=== PATIENT | female | born 1935 | race African-American/Black ===

== ENCOUNTER → 2016-11-12 | Outpatient (CLI) | payer MEDICARE | LOC: RAD 12:46 | PROVIDERS: ATTEND Internal Medicine Gastroenterology | DX: R10.84 Generalized abdominal pain (principal); K82.8 Other specified diseases of gallbladder | CPT/HCPCS: 78227; A9537; Q9969; J2805 ==

== ENCOUNTER → 2017-06-03 | Outpatient (CLI) | payer MEDICARE ==
--- NOTE | 2017-06-03 12:43 | RADIOLOGY REPORT (SQ) ---
EXAM DESCRIPTION: CT ABDOMEN WITH IV ORAL CONT COMPLETED DATE/TIME: 06/03/2017 11:53 am REASON FOR STUDY: ABD PAIN (R10.9) R10.9 UNSPECIFIED ABDOMINAL PAIN COMPARISON: None. TECHNIQUE: CT scan of the abdomen performed with intravenous and with oral contrast using helical sc anning technique with dynamic intravenous contrast injection. Images reviewed with lung, soft tissue, and bone windows. Reconstructed coronal and sagittal MPR images reviewed. Delayed images for evaluat ion of the urinary system also acquired and evaluated. All images stored on PACS. All CT scanners at this facility use dose modulation, iterative reconstruc tion, and/or weight based dosing when appropriate to reduce radiation dose to as low as reasonably ac hievable (ALARA). [facility]: Dose Right [facility]: CareDose [facility]: Dose Right [facility]: Teradose 4D [facility]: OOTU CONTRAST TYPE AND DOSE: contrast/concentration: Isovue 370.00 mg/ml; Total Contrast Delivered: 79.0 ml; Total Saline Delivered: 68.0 ml RENAL FUNCTION: Creatinine 1.0 RADIATION DOSE: CT Rad equipment meets quality standard of care and radiation dose reduction techniq ues were employed. CTDIvol: 11.7 - 13.0 mGy. DLP: 814 mGy-cm. . LIMITATIONS: None. FINDINGS: LOWER CHEST: No significant findings. No nodules or infiltrates. LIVER: Normal size. No masses. No dilated ducts. SPLEEN: Normal size. No focal lesions. PANCREAS: There is a 3 cm thin walled unilocular cystic lesion associated with the head of the pancre as. Is best seen on image 26 of the axial series. GALLBLADDER: No identified stones by CT criteria. No inflammatory changes to suggest cholecystitis. ADRENAL GLANDS: There is mild thickening of the left adrenal gland. RIGHT KIDNEY AND URETER: No solid masses. No significant calcifications. No hydronephrosis or hyd roureter. LEFT KIDNEY AND URETER: No solid masses. No significant calcifications. No hydronephrosis or hydr oureter. AORTA AND VESSELS: No aneurysm. No dissection. Renal arteries, SMA, celiac without stenosis. RETROPERITONEUM: No retroperitoneal adenopathy, hemorrhage or masses. BOWEL AND PERITONEAL CAVITY: No masses or inflammatory changes. No free fluid or peritoneal masses. APPENDIX: Normal. ABDOMINAL WALL: No masses. No hernias. BONES: No significant or acute findings. OTHER: No other significant finding. IMPRESSION: 1. Unilocular cystic lesion in the head of the pancreas. If there is history of pancre atitis, pseudocyst is most likely diagnosis. In the absence of history of pancreatitis, entities suc h as intraductal papillary mucinous neoplasms and serous cystadenomas should be considered. 2. There is thickening of the left adrenal gland. TECHNICAL DOCUMENTATION: JOB ID: [id number] Quality ID # [id number]: Final reports with documentation of one or more dose reduction techniques (e.g., Au tomated exposure control, adjustment of the mA and/or kV according to patient size, use of iterative reconstruction technique) 2010 [employer]- All Rights Reserved
== END ==
LOC: RAD 11:11
PROVIDERS: ATTEND Surgery
DX: R10.9 Unspecified abdominal pain (principal); K86.2 Cyst of pancreas
CPT/HCPCS: 74160; 82565

== ENCOUNTER 2017-11-22 09:51 | Emergency (ER) | payer MEDICARE ==
[2017-11-22] MEDS ORDERED: IBUPROFEN 600 MG TABLET PO ONE (10:42)
--- NOTE | 2017-11-22 10:43 | ER Document Report ---
ED Medical Screen (RME) - General Chief Complaint: Fall Injury Stated Complaint: FALL HAND PAIN Time Seen by Provider: 11/22/17 10:32 Mode of Arrival: Ambulatory Information source: Patient Notes: 82-year-old female presents with complaints of mechanical fall a few days prior to complaining of left hand pain facial injury I have greeted and performed a rapid initial assessment of this patient. A comprehensive ED assessment and evaluation of the patient, analysis of test results and completion of the medical decision making process will be conducted by additional ED providers. PHYSICAL EXAMINATION: GENERAL: Well-appearing, well-nourished and in no acute distress. HEAD: Atraumatic, normocephalic. EYES: Pupils equal round extraocular movements intact, conjunctiva are normal. ENT: Nares patent NECK: Normal range of motion LUNGS: No respiratory distress Musculoskeletal: Left hand edematous NEUROLOGICAL: Normal speech, normal gait. PSYCH: Normal mood, normal affect. SKIN: Minor abrasions to nose TRAVEL OUTSIDE OF THE [place] IN LAST 30 DAYS: No - Related Data Allergies/Adverse Reactions: No Known Allergies Allergy (Verified 11/22/17 09:52) Past Medical History - Social History Chew tobacco use (# tins/day): No Frequency of alcohol use: None Drug Abuse: None - Past Medical History Cardiac Medical History: Reports: Hx Hypertension Renal/ Medical History: Denies: Hx Peritoneal Dialysis - Immunizations Hx Diphtheria, Pertussis, Tetanus Vaccination: Yes Physical Exam - Vital signs Vitals: Temp Pulse Resp BP Pulse Ox 98.7 F 82 14 180/76 H 97 11/22/17 09:58 11/22/17 09:58 11/22/17 09:58 11/22/17 09:58 11/22/17 09:58 Course - Vital Signs Vital signs: Temp Pulse Resp BP Pulse Ox 98.7 F 82 14 180/76 H 97 11/22/17 09:58 11/22/17 09:58 11/22/17 09:58 11/22/17 09:58 11/22/17 09:58
--- NOTE | 2017-11-22 10:52 | ER Document Report ---
ED General - General Chief Complaint: Fall Injury Stated Complaint: FALL HAND PAIN Time Seen by Provider: 11/22/17 10:32 Mode of Arrival: Ambulatory TRAVEL OUTSIDE OF THE [place] IN LAST 30 DAYS: No - HPI Notes: 82-year-old female presents today with complaints of left hand pain, facial contusion after she fell walking down the driveway approximately 3 days ago. Unsure change in level consciousness. Witnessed fall. Denies taking any blood thinners. Family members with patient at bedside. They stated they have not noticed any confusion, she is eating and drinking appropriately. Has not tried any [id number]-bay-[id number] medications for left hand swelling and pain status post fall. Denies any open wounds or lacerations. Patient wanted to be evaluated today for her left hand, head contusion and family did want a head CT. Denies fevers, chills, chest pain,palpitations, shortness of breath, dyspnea, nausea , vomiting, diarrhea, abdominal pain, hematuria,blurred vision, double vision, loss of vision, speech changes, LH, dizziness, syncope, headaches, wheezing, ST , URI, neck pain, weakness, bowel or bladder dysfunction, saddle anesthesia, numbness or tingling in bilateral upper or lower extremities equally, muscle paralysis, weakness in bilateral upper or lower extremities equally or rash. Denies IV drug use. - Related Data Allergies/Adverse Reactions: No Known Allergies Allergy (Verified 11/22/17 09:52) Past Medical History - General Information source: Patient, Relative - daughter - Social History Smoking Status: Former Smoker Chew tobacco use (# tins/day): No Frequency of alcohol use: None Drug Abuse: None Family History: Reviewed & Not Pertinent Patient has suicidal ideation: No Patient has homicidal ideation: No - Past Medical History Cardiac Medical History: Reports: Hx Hypertension Renal/ Medical History: Denies: Hx Peritoneal Dialysis - Immunizations Hx Diphtheria, Pertussis, Tetanus Vaccination: Yes Review of Systems - Review of Systems Constitutional: See HPI EENT: No symptoms reported Cardiovascular: No symptoms reported Respiratory: No symptoms reported Gastrointestinal: No symptoms reported Genitourinary: No symptoms reported Female Genitourinary: No symptoms reported Musculoskeletal: See HPI Skin: No symptoms reported Hematologic/Lymphatic: No symptoms reported Neurological/Psychological: See HPI Physical Exam - Vital signs Vitals: Temp Pulse Resp BP Pulse Ox 98.7 F 82 14 180/76 H 97 11/22/17 09:58 11/22/17 09:58 11/22/17 09:58 11/22/17 09:58 11/22/17 09:58 - Notes Notes: PHYSICAL EXAMINATION: GENERAL: Chronically ill-appearing, well-nourished and in no acute distress. HEAD: Atraumatic, normocephalic. Abrasion to forehead approximately 1 cm x 0.5 cm, no open wounds or drainage. EYES: Pupils equal round and reactive to light, extraocular movements intact, conjunctiva are normal. ENT: Nares patent, oropharynx clear without exudates. Moist mucous membranes. NECK: Normal range of motion, supple without lymphadenopathy. No C-spine tenderness on palpation, no paraspinal and cervical spine. LUNGS: Breath sounds clear to auscultation bilaterally and equal. No wheezes rales or rhonchi. HEART: Regular rate and rhythm without murmurs ABDOMEN: Soft, nontender, nondistended abdomen. No guarding, no rebound. No masses appreciated. Female : deferred Musculoskeletal: Normal range of motion, no pitting or edema. No cyanosis. noted pain with flexion, extension, abduction, adduction of 2nd 4th left phalanges. Full motor and sensory function in BRYSON. Product Demonstrator + 2 BUE equally. Snuffbox tenderness negative on the left. Ulnar and radial pulses + 2 BUE equally. DTRs +2 in bilateral upper extremities equally. No deformity noted of hand or wrist bilaterally. Normal flexion, extension, ulnar/radial deviation. Negative kanavels sign. No open wounds or drainage from wrist. No vascular compromise. full motor and sensory function with medial, radial and ulnar nerves bilaterally and equally. NEUROLOGICAL: Cranial nerves grossly intact. Normal speech, normal gait. Normal sensory, motor exams. PERRLA, EOMI. Full motor and sensory function throughout. Product Demonstrator + 2 equal bilaterally in BUE. Tongue midline. No pronator drift. No ataxia. Neck with APROM. Raises eyebrows. Strength is 5 out of 5 in bilateral upper and lower extremities equally.Speaks in full sentences. No weakness on one side. Romberg gait steady able to walk straight line. Able to recall 5 objects. PSYCH: Normal mood, normal affect. SKIN: Warm, Dry, normal turgor, no rashes or lesions noted. Course - Re-evaluation Re-evalutation: 82-year-old female for evaluation of hand pain, head trauma after falling while walking on her driveway, witnessed fall. Presentation of head trauma in an otherwise well-appearing patient. No focal neurologic deficits on exam, no evidence of basilar skull fracture on exam without evidence of hemotympanum, raccoon eyes, or periauricular hematoma. No papilledema. Patient is not on anticoagulation. GCS is 15. No loss of consciousness. No episodes of vomiting. CT head and facial bones negative for acute findings per radiology. Left hand negative for acute fracture, noted soft tissue swelling. Patient placed in a short posterior splint due to the fact that there is a much swelling there could be an occult fracture there. Advised patient to follow-up with workers compensation claims specialist within 1 week for possible re-x-ray or her primary care doctor. Advised to follow-up with her primary care doctor tomorrow. Take vktb-[id number]-skqlhcv ibuprofen and Tylenol as needed for pain.consent by patient given to place left volar splint,. cms intact, sensory motor function intact in bilateral upper extremities prior to splint application fiberglass splint placed without incident. cms intact 20 minutes after splint application. Splint is in good alignment. Bilateral upper extremities with motor and sensory function intact 20 minutes after application. Pt stated that splint felt comfortable. discussed concussion protocol such as being woken up every hour by someone you live with, be asked orientation questions and to call 911 if any neurological changes occur such as speech changes, weakness on one side, unable to orient, nausea, vomiting, or severe headache, etc. pt verbalized understanding of this care and agreed to plan of care. discussed worrisome symptoms as well as reasons for return over what time frame. patient states understanding and is agreeable with plan. I have reevaluated this patient multiple times and no significant life threatening changes, no signs of toxicity , sepsis or peritonitis are noted. The patient and I have discussed the diagnosis and risks, and we agree with discharging home and close follow-up. Daughter felt comfortable plan of care of going home with close follow-up with primary care doctor and workers compensation claims specialist. We also discussed returning to the Emergency Department immediately if new or worsening symptoms occur with the understanding that symptoms and presentations can change. At this time will discharge with return precautions and follow-up recommendations. Verbal discharge instructions given a the bedside and opportunity for questions given. We have discussed the symptoms which are most concerning (e.g., change in neurological status, confusion, fever, nausea, vomiting, numbness or tingling down extremities) that necessitate immediate return. Medication warnings reviewed. Patient is in agreement with this plan and has verbalized understanding of return precautions and the need for primary care follow-up in the next 24-72 hours. Patient verbalized understanding of plan of care and agree with plan of care. - Vital Signs Vital signs: Temp Pulse Resp BP Pulse Ox 98.7 F 82 14 180/76 H 97 11/22/17 09:58 11/22/17 09:58 11/22/17 09:58 11/22/17 09:58 11/22/17 09:58 Discharge - Discharge Clinical Impression: Post concussive syndrome Sprain of left hand Qualifiers: Encounter type: initial encounter Qualified Code(s): S63.92XA - Sprain of unspecified part of left wrist and hand, initial encounter Facial contusion Qualifiers: Encounter type: initial encounter Qualified Code(s): S00.83XA - Contusion of other part of head, initial encounter Closed head injury Qualifiers: Encounter type: initial encounter Qualified Code(s): S09.90XA - Unspecified injury of head, initial encounter Condition: Good Disposition: HOME, SELF-CARE Instructions: Sprain ([facility]), Wrist Sprain ([facility]), Splint Precautions ([facility]), Temporary Splint ([facility]), Post-Concussion Syndrome ([facility]) Additional Instructions: Head Injury Precautions At this point, there is no evidence that your head injury is serious. Observation is necessary, however. Take only clear liquids for the first few hours, unless told otherwise by the doctor. If no pain medication was prescribed, you may take acetaminophen according to the directions on the bottle. Do not take any medication that may alter your level of alertness (unless you've discussed it with the doctor first) . Limit activity for the first 24 hours. Bed rest is best. During the first 24 hours, check to see approximately every two to three hours that the patient is easily arousable, responds normally, and can perform common tasks such as walking without difficulty. Contact your doctor or go to the hospital if any of the following things occur: Persistent vomiting, difficulty in arousing the patient, worsening or continued headache, or failure to improve as expected. Head injuries can cause symptoms that persist for a few days or even a few weeks. Follow-up with workers compensation claims specialist within 1 week for repeat x-ray and reevaluation. wear splint as directed. take otc tylenol and ibu as needed for pain. RICE therapy. Return immediately for any new or worsening symptoms. Follow up with primary care provider, call tomorrow to make followup appointment. Referrals: KENNETH CORBIN DO [NO LOCAL MD] - Follow up in 3-5 days VLAD LOPES MD [ACTIVE STAFF] - Follow up in 3-5 days
--- NOTE | 2017-11-22 11:09 | RADIOLOGY REPORT (SQ) ---
EXAM DESCRIPTION: CT FACIAL AREA WITHOUT COMPLETED DATE/TIME: 11/22/2017 11:00 am REASON FOR STUDY: fall COMPARISON: None. TECHNIQUE: Noncontrasted images through the facial bones and orbits windowed for bone and soft tissu e. Additional coronal and sagittal reconstructed images reviewed. All images stored on PACS. All CT scanners at this facility use dose modulation, iterative reconstruction, and/or weight based d osing when appropriate to reduce radiation dose to as low as reasonably achievable (ALARA). [facility]: Dose Right [facility]: CareDose [facility]: Dose Right [facility]: Teradose 4D [facility]: [employer] RADIATION DOSE: CT Rad equipment meets quality standard of care and radiation dose reduction techniq ues were employed. CTDIvol: 30.4 mGy. DLP: 562 mGy-cm. mGy. LIMITATIONS: None. FINDINGS: FACIAL BONES: No fracture or bone lesion. ORBITS: Intact. No fracture. Symmetric intact globes and retroorbital soft tissues. PARANASAL SINUSES: Clear. No significant mucosal thickening, mass or fluid. No nasal polyps. Maxill flaquito sinus outlets are patent. SOFT TISSUES: No mass or edema. INFERIOR BRAIN: Chronic ischemic changes. Old right MCA territory infarct. OTHER: No other significant finding. IMPRESSION: NO ACUTE FINDINGS. TECHNICAL DOCUMENTATION: JOB ID: [id number] Quality ID # 436: Final reports with documentation of one or more dose reduction techniques (e.g., Au tomated exposure control, adjustment of the mA and/or kV according to patient size, use of iterative reconstruction technique) 2010 [employer]- All Rights Reserved Reading location - IP/workstation name: [email or web address]
--- NOTE | 2017-11-22 11:19 | RADIOLOGY REPORT (SQ) ---
EXAM DESCRIPTION: HAND LEFT 3 VIEWS COMPLETED DATE/TIME: 11/22/2017 11:08 am REASON FOR STUDY: fall COMPARISON: None. EXAM PARAMETERS: NUMBER OF VIEWS: Three views. TECHNIQUE: AP, lateral and oblique radiographic images acquired of the left hand. LIMITATIONS: None. FINDINGS: MINERALIZATION: Normal. BONES: No acute fracture or dislocation. No worrisome bone lesions. JOINTS: No effusions. SOFT TISSUES: Swelling over the dorsal aspect of the metacarpals. No foreign body. OTHER: No other significant finding. IMPRESSION: Soft tissue injury. TECHNICAL DOCUMENTATION: JOB ID: [id number] 9[employer]- All Rights Reserved Reading location - IP/workstation name: [email or web address]
--- NOTE | 2017-11-22 12:40 | RADIOLOGY REPORT (SQ) ---
EXAM DESCRIPTION: CT HEAD WITHOUT COMPLETED DATE/TIME: 11/22/2017 12:20 pm REASON FOR STUDY: s/p fall x 3 days ago, unsure of loc COMPARISON: 07/18/2013 TECHNIQUE: Axial images acquired through the brain without intravenous contrast. Images reviewed wi th bone, brain and subdural windows. Additional sagittal and coronal reconstructions were generated. Images stored on PACS. All CT scanners at this facility use dose modulation, iterative reconstruction, and/or weight based d osing when appropriate to reduce radiation dose to as low as reasonably achievable (ALARA). [facility]: Dose Right [facility]: CareDose [facility]: Dose Right [facility]: Teradose 4D [facility]: Smart [employer] RADIATION DOSE: CT Rad equipment meets quality standard of care and radiation dose reduction techniq ues were employed. CTDIvol: 53.2 mGy. DLP: 964 mGy-cm.mGy. LIMITATIONS: None. FINDINGS: VENTRICLES: Prominent. CEREBRUM: No masses. No hemorrhage. No midline shift. Old right MCA territory infarct. Areas of l ow density in the white matter most likely due to chronic micro-vascular ischemic change. No evidenc e for acute infarction. CEREBELLUM: Old infarcts. No evidence for acute infarction. EXTRAAXIAL SPACES: Age-related involutional change. No fluid collections. Stable meningioma right f rontal lobe. ORBITS AND GLOBE: No intra- or extraconal masses. Normal contour of globe without masses. CALVARIUM: No fracture. PARANASAL SINUSES: No fluid or mucosal thickening. SOFT TISSUES: No mass or hematoma. OTHER: No other significant finding. IMPRESSION: CHRONIC CHANGES OF ATROPHY AND MICROVASCULAR ISCHEMIA. NO ACUTE PROCESS. EVIDENCE OF ACUTE STROKE: NO. TECHNICAL DOCUMENTATION: JOB ID: [id number] Quality ID # [id number]: Final reports with documentation of one or more dose reduction techniques (e.g., Au tomated exposure control, adjustment of the mA and/or kV according to patient size, use of iterative reconstruction technique) 2010 [employer]- All Rights Reserved Reading location - IP/workstation name: [email or web address]
[2017-11-22 13:29] VITALS: BP 164/84
== END 2017-11-22 13:29 | disposition home or self-care (01) ==
LOC: ER 09:51
PROC: 2W3DX1Z Immobilization of Left Lower Arm using Splint (ICD-10-PCS; principal; 2017-11-22)
DX: S63.92XA Sprain of unspecified part of left wrist and hand, initial encounter (principal); S00.83XA Contusion of other part of head, initial encounter; F07.81 Postconcussional syndrome; S09.90XA Unspecified injury of head, initial encounter; M79.642 Pain in left hand; M79.89 Other specified soft tissue disorders; W18.30XA Fall on same level, unspecified, initial encounter; Y92.008 Other place in unspecified non-institutional (private) residence as the place of occurrence of the external cause
CPT/HCPCS: 99284; 73130; 70450; 70486; 29125; A9270

== ENCOUNTER 2018-06-07 13:25 | Emergency (ER) | payer MEDICARE ==
--- NOTE | 2018-06-07 14:39 | ER Document Report ---
ED Medical Screen (RME) - General Chief Complaint: Altered Mental Status Stated Complaint: ABDOMINAL PAIN,DIZZINESS Time Seen by Provider: 06/07/18 14:31 TRAVEL OUTSIDE OF THE [place] IN LAST 30 DAYS: No - HPI Notes: 06/07/18 14:38 Patient is a 83-year-old female that presents to the emergency department for chief complaint of constipation and confusion. Patient complains of epigastric abdominal pain and increased constipation over the last few days. Patient's daughter brought her to the emergency room because she has noticed increased confusion. Patient lives at home by herself and she has been less mobile and increasingly confused over the last few weeks. ROS: GENERAL: Denies fever of chills CV: Denies chest pain PHYSICAL EXAMINATION: GENERAL: Well-appearing, well-nourished and in no acute distress. HEAD: Atraumatic, normocephalic. EYES: Pupils equal round extraocular movements intact, conjunctiva are normal. ENT: Nares patent NECK: Normal range of motion LUNGS: No respiratory distress Musculoskeletal: Normal range of motion NEUROLOGICAL: Normal speech, normal gait. PSYCH: Normal mood, normal affect. MDM: Patient seen and examined for rapid initial assessment. Vital signs reviewed. A comprehensive ED assessment and evaluation of the patient, analysis of test results and completion of the medical decision making process will be conducted by additional ED providers. - Related Data Allergies/Adverse Reactions: No Known Allergies Allergy (Verified 06/07/18 13:38) Past Medical History - Past Medical History Cardiac Medical History: Reports: Hx Hypertension Renal/ Medical History: Denies: Hx Peritoneal Dialysis - Immunizations Hx Diphtheria, Pertussis, Tetanus Vaccination: Yes Physical Exam - Vital signs Vitals: Temp Pulse Resp BP Pulse Ox 98.8 F 80 16 146/79 H 96 06/07/18 13:44 06/07/18 13:44 06/07/18 13:44 06/07/18 13:44 06/07/18 13:44 Course - Vital Signs Vital signs: Temp Pulse Resp BP Pulse Ox 98.8 F 80 16 146/79 H 96 06/07/18 13:44 06/07/18 13:44 06/07/18 13:44 06/07/18 13:44 06/07/18 13:44
--- NOTE | 2018-06-07 15:28 | RADIOLOGY REPORT (SQ) ---
EXAM DESCRIPTION: CHEST SINGLE VIEW COMPLETED DATE/TIME: 06/07/2018 3:18 pm REASON FOR STUDY: cough COMPARISON: None. EXAM PARAMETERS: NUMBER OF VIEWS: One view. TECHNIQUE: Single frontal radiographic view of the chest acquired. RADIATION DOSE: NA LIMITATIONS: None. FINDINGS: LUNGS AND PLEURA: Minimal scarring or atelectasis in the right lower lung and the left mi d-lower lung zones. No acute pulmonary consolidation. No pneumothorax or pleural effusion. MEDIASTINUM AND HILAR STRUCTURES: Calcified mediastinal and hilar lymph nodes probably secondary to prior granulomatous disease. HEART AND VASCULAR STRUCTURES: Heart normal in size. Normal vasculature. BONES: No acute findings. HARDWARE: None in the chest. OTHER: No other significant finding. IMPRESSION: 1. No acute pulmonary findings. Minimal scarring or atelectasis in the mid and lower l dinora zones. 2. Calcified mediastinal and hilar lymph nodes, probably secondary to prior granulomatous disease. TECHNICAL DOCUMENTATION: JOB ID: [id number]- All Rights Reserved Reading location - IP/workstation name: [email or web address]
--- NOTE | 2018-06-07 15:38 | RADIOLOGY REPORT (SQ) ---
EXAM DESCRIPTION: CT HEAD WITHOUT COMPLETED DATE/TIME: 06/07/2018 3:27 pm REASON FOR STUDY: confusion COMPARISON: 11/22/2017. TECHNIQUE: Axial images acquired through the brain without intravenous contrast. Images reviewed wi th bone, brain and subdural windows. Additional sagittal and coronal reconstructions were generated. Images stored on PACS. All CT scanners at this facility use dose modulation, iterative reconstruction, and/or weight based d osing when appropriate to reduce radiation dose to as low as reasonably achievable (ALARA). [facility]: Dose Right [facility]: CareDose [facility]: Dose Right [facility]: Teradose 4D [facility]: [employer] RADIATION DOSE: CT Rad equipment meets quality standard of care and radiation dose reduction techniq ues were employed. CTDIvol: 53.2 mGy. DLP: 964 mGy-cm.mGy. LIMITATIONS: None. FINDINGS: VENTRICLES: Prominent. CEREBRUM: No masses. No hemorrhage. No midline shift. Areas of low density in the white matter mos t likely due to chronic micro-vascular ischemic change. 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 No evidence for acute infarction. CEREBELLUM: No masses. No hemorrhage. No alteration of density. No evidence for acute infarction. EXTRAAXIAL SPACES: Age-related involutional change. No fluid collections. No masses. ORBITS AND GLOBE: No intra- or extraconal masses. Normal contour of globe without masses. CALVARIUM: No fracture. PARANASAL SINUSES: No fluid or mucosal thickening. SOFT TISSUES: No mass or hematoma. OTHER: No other significant finding. IMPRESSION: CHRONIC CHANGES OF ATROPHY AND MICROVASCULAR ISCHEMIA. 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 NO ACUTE PROCESS. EVIDENCE OF ACUTE STROKE: NO. TECHNICAL DOCUMENTATION: JOB ID: [id number] Quality ID # [id number]: Final reports with documentation of one or more dose reduction techniques (e.g., Au tomated exposure control, adjustment of the mA and/or kV according to patient size, use of iterative reconstruction technique) 2010 [employer]- All Rights Reserved Reading location - IP/workstation name: [email or web address]
--- NOTE | 2018-06-07 16:14 | ER Document Report ---
ED General - General Chief Complaint: Altered Mental Status Stated Complaint: ABDOMINAL PAIN,DIZZINESS Time Seen by Provider: 06/07/18 14:31 Notes: 83-year-old female patient emergency department chief complaint of dizziness and generalized weakness. Patient states that she just feels weak all over. Hurts in her legs. Also states that she has abdominal distention and abdominal pain. Has had diffuse abdominal pain for quite some time now. No trauma. Denies any other major symptoms at this time. Patient states that when she eats the pain is much better. No prior history of H. pylori or gastric ulcer. Does not know if she has a peptic ulcer. She has had gastroenterology workup recently by Dr. Dorantes TRAVEL OUTSIDE OF THE [place] IN LAST 30 DAYS: No - HPI Onset: Last week Onset/Duration: Gradual Quality of pain: Achy Severity: Moderate Pain Level: 2 Associated symptoms: Body/muscle aches, Weakness - Related Data Allergies/Adverse Reactions: No Known Allergies Allergy (Verified 06/07/18 13:38) Past Medical History - General Information source: Patient, Relative - Social History Smoking Status: Never Smoker Frequency of alcohol use: None Drug Abuse: None Lives with: Family Family History: Reviewed & Not Pertinent Patient has suicidal ideation: No Patient has homicidal ideation: No - Past Medical History Cardiac Medical History: Reports: Hx Hypertension Renal/ Medical History: Denies: Hx Peritoneal Dialysis - Immunizations Hx Diphtheria, Pertussis, Tetanus Vaccination: Yes Review of Systems - Review of Systems Notes: Constitutional: denies: Chills, Diaphoresis, Fever, he does complain of generalized weakness. EENT: denies: Eye discharge, Blurred vision, Tearing, Double vision, Nose congestion, Nose discharge, Throat swelling, Mouth pain Cardiovascular: denies: Palpitations, Heart racing, Orthopnea, Dyspnea, Chest pain Respiratory: denies: Cough, Hurts to breathe, Wheezing, Shortness of breath Gastrointestinal: denies: Abdominal pain, Diarrhea, Nausea, Vomiting, Black stools, bright red blood in stool Genitourinary: denies: Burning, Dysuria, Discharge, Frequency, Flank pain, Hematuria Musculoskeletal: denies: Joint pain, Joint swelling, Muscle pain, Muscle stiffness, back pain Hematologic/Lymphatic: denies: Anemia, Easy bleeding, Easy bruising, Blood clots Neurological/Psychological: denies: Confusion, Dementia, Depression, Loss of consciousness Skin: No lesions, no masses, no skin breakdown, no abscesses Physical Exam - Vital signs Vitals: Temp Pulse Resp BP Pulse Ox 98.8 F 80 16 146/79 H 96 06/07/18 13:44 06/07/18 13:44 06/07/18 13:44 06/07/18 13:44 06/07/18 13:44 Course - Re-evaluation Re-evalutation: 06/07/18 22:08 Patient has been observed here in the emergency department for almost [address] scan with oral and IV contrast, CT head, chest x-ray. All unremarkable. At no time in this evaluation and workup however felt the patient was having a stroke. Patient maintained clear mental status and answering all questions appropriately with clear speech and 100% cooperative. There is no abnormal or focal weakness. Uncertain etiology of patient's abdominal pain and muscle pain. Patient states that most of the pain is in her buttocks and legs in the anterior thighs bilaterally. She denies any active chest pain. She denies any active shortness of breath. I have advised her to follow-up with her regular doctor. I do not think there is anything else that I can do at this point in time. I did offer patient a shot of Toradol and some IV fluids however she does not like medicines and would prefer just to have something to eat and drink and would like to go home. At this time I feel comfortable discharging her in stable condition. 06/07/18 22:10 06/07/18 22:16 Laboratory 06/07/18 06/07/18 06/07/18 18:35 18:35 18:35 WBC 9.9 RBC 4.82 Hgb 13.2 Hct 37.9 MCV 79 L MCH 27.4 MCHC 34.8 RDW 16.6 H Plt Count 278 Seg Neutrophils % 60.0 Lymphocytes % 32.0 Monocytes % 5.4 Eosinophils % 1.2 Basophils % 1.4 Absolute Neutrophils 5.9 Absolute Lymphocytes 3.2 Absolute Monocytes 0.5 Absolute Eosinophils 0.1 Absolute Basophils 0.1 Sodium 142.5 Potassium 3.6 Chloride 103 Carbon Dioxide 32 H Anion Gap 8 BUN 32 H Creatinine 1.57 H Est GFR ( Amer) 38 L Est GFR (Non-Af Amer) 31 L Glucose 95 Calcium 9.9 Total Bilirubin 0.7 Direct Bilirubin 0.3 Neonat Total Bilirubin Not Reportable Neonat Direct Bilirubin Not Reportable Neonat Indirect Bili Not Reportable AST 33 ALT 27 Alkaline Phosphatase 88 Ammonia Creatine Kinase CK-MB (CK-2) Troponin I 0.020 Total Protein 7.8 Albumin 4.0 Lipase 46.7 Urine Color Urine Appearance Urine pH Ur Specific [place] Urine Protein Urine Glucose (UA) Urine Ketones Urine Blood Urine Nitrite Urine Bilirubin Urine Urobilinogen Ur Leukocyte Esterase Urine WBC (Auto) Urine RBC (Auto) Squamous Epi Cells Auto Urine Mucus (Auto) Urine Ascorbic Acid 06/07/18 06/07/18 06/07/18 18:35 18:35 18:35 WBC RBC Hgb Hct MCV MCH MCHC RDW Plt Count Seg Neutrophils % Lymphocytes % Monocytes % Eosinophils % Basophils % Absolute Neutrophils Absolute Lymphocytes Absolute Monocytes Absolute Eosinophils Absolute Basophils Sodium Potassium Chloride Carbon Dioxide Anion Gap BUN Creatinine Est GFR ( Amer) Est GFR (Non-Af Amer) Glucose Calcium Total Bilirubin Direct Bilirubin Neonat Total Bilirubin Neonat Direct Bilirubin Neonat Indirect Bili AST ALT Alkaline Phosphatase Ammonia Creatine Kinase 134 CK-MB (CK-2) 2.02 Troponin I Total Protein Albumin Lipase Urine Color YELLOW Urine Appearance CLEAR Urine pH 6.0 Ur Specific [place] 1.014 Urine Protein 100 H Urine Glucose (UA) NEGATIVE Urine Ketones NEGATIVE Urine Blood NEGATIVE Urine Nitrite NEGATIVE Urine Bilirubin NEGATIVE Urine Urobilinogen NEGATIVE Ur Leukocyte Esterase TRACE H Urine WBC (Auto) 8 Urine RBC (Auto) 1 Squamous Epi Cells Auto <1 Urine Mucus (Auto) RARE Urine Ascorbic Acid NEGATIVE 06/07/18 21:41 WBC RBC Hgb Hct MCV MCH MCHC RDW Plt Count Seg Neutrophils % Lymphocytes % Monocytes % Eosinophils % Basophils % Absolute Neutrophils Absolute Lymphocytes Absolute Monocytes Absolute Eosinophils Absolute Basophils Sodium Potassium Chloride Carbon Dioxide Anion Gap BUN Creatinine Est GFR ( Amer) Est GFR (Non-Af Amer) Glucose Calcium Total Bilirubin Direct Bilirubin Neonat Total Bilirubin Neonat Direct Bilirubin Neonat Indirect Bili AST ALT Alkaline Phosphatase Ammonia < 8.7 L Creatine Kinase CK-MB (CK-2) Troponin I Total Protein Albumin Lipase Urine Color Urine Appearance Urine pH Ur Specific [place] Urine Protein Urine Glucose (UA) Urine Ketones Urine Blood Urine Nitrite Urine Bilirubin Urine Urobilinogen Ur Leukocyte Esterase Urine WBC (Auto) Urine RBC (Auto) Squamous Epi Cells Auto Urine Mucus (Auto) Urine Ascorbic Acid 06/07/18 22:18 Abdomen/Pelvis CT 06/07/18 00:00 IMPRESSION: Numerous renal cysts bilaterally with areas of scarring similar to the previous examination. This includes heterogeneity in the inferior pole the left kidney which appears stable Prominent adrenal gland suggesting hyperplasia Low-attenuation lesion in the ovary on the left which is indeterminate. 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 No acute pulmonary findings. Minimal scarring or atelectasis in the mid and lower lung zones. 2. Calcified mediastinal and hilar lymph nodes, probably secondary to prior granulomatous disease. Head CT 06/07/18 14:39 IMPRESSION: CHRONIC CHANGES OF ATROPHY AND MICROVASCULAR ISCHEMIA. 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 NO ACUTE PROCESS. EVIDENCE OF ACUTE STROKE: NO. - Vital Signs Vital signs: Temp Pulse Resp BP Pulse Ox 98.8 F 80 16 146/79 H 96 06/07/18 13:44 06/07/18 13:44 06/07/18 13:44 06/07/18 13:44 06/07/18 13:44 - Laboratory Result Diagrams: 06/07/18 18:35 06/07/18 18:35 Laboratory results interpreted by me: 06/07/18 06/07/18 06/07/18 18:35 18:35 18:35 MCV 79 L RDW 16.6 H Carbon Dioxide 32 H BUN 32 H Creatinine 1.57 H Est GFR ( Amer) 38 L Est GFR (Non-Af Amer) 31 L Ammonia Urine Protein 100 H Ur Leukocyte Esterase TRACE H 06/07/18 21:41 MCV RDW Carbon Dioxide BUN Creatinine Est GFR ( Amer) Est GFR (Non-Af Amer) Ammonia < 8.7 L Urine Protein Ur Leukocyte Esterase Discharge - Discharge Clinical Impression: Myalgia Condition: Good Disposition: HOME, SELF-CARE Instructions: Myalagia (Muscle Pain) ([facility]), Weakness ([facility]) Additional Instructions: Uncertain etiology of your chronic abdominal pain. It will be very important that you follow-up with your sole ruffer, Dr. Chris for further evaluation and treatment. I also do not know why you have muscle aches. This will need to be discussed with your primary care doctor. The CT scan of the head, abdomen, pelvis all were read as unremarkable. There were multiple incidental findings on the CT scan. These will need to be followed up as well with your primary care doctor. There is a cyst on the left ovary which may need [facility] follow-up. A copy of your CT scan reports have been provided so that you may take these to your primary care doctor in order to arrange outpatient referral follow-ups. Your labs were fairly unremarkable. Please make sure that you are drinking plenty of fluids. In the event that symptoms are getting worse please feel free to return for repeat evaluation. Referrals: MICHAEL CHRIS MD [ACTIVE STAFF] - Follow up in 1 week
[2018-06-07 18:53] LABS: ABSOLUTE BASOPHILS # (AUTO) 0.1 10^3/uL (0.0-0.2); ABSOLUTE EOSINOPHILS # (AUTO) 0.1 10^3/uL (0.0-0.6); ABSOLUTE LYMPHOCYTES (AUTO) 3.2 10^3/uL (0.5-4.7); ABSOLUTE MONOCYTES (AUTO) 0.5 10^3/uL (0.1-1.4); ABSOLUTE NEUT (AUTO) 5.9 10^3/uL (1.7-8.2); BASOPHILS % (AUTO) 1.4 % (0-2); EOSINOPHILS % (AUTO) 1.2 % (0-6); HEMATOCRIT 37.9 % (36.0-47.0); HEMOGLOBIN 13.2 g/dL (12.0-15.5); MEAN CORPUSCULAR HEMOGLOBIN 27.4 pg (27.0-33.4); MEAN CORPUSCULAR HGB CONC 34.8 g/dL (32.0-36.0); MEAN CORPUSCULAR VOLUME 79 fl (80-97); MONOCYTES % (AUTO) 5.4 % (3-13); PLATELET COUNT 278 10^3/uL (150-450); RED BLOOD COUNT 4.82 10^6/uL (3.72-5.28); RED CELL DISTRIBUTION WIDTH 16.6 % (11.5-14.0); TOTAL CELLS COUNTED % (AUTO) 100 %; WHITE BLOOD COUNT 9.9 10^3/uL (4.0-10.5)
[2018-06-07 19:04] LABS: APPEARANCE,URINE CLEAR; BILIRUBIN,URINE NEGATIVE (NEGATIVE); COLOR,URINE YELLOW; GLUCOSE, URINE NEGATIVE (NEGATIVE); KETONES,URINE NEGATIVE (NEGATIVE); LEUKOCYTE ESTERASE,URINE TRACE (NEGATIVE); NITRITE,URINE NEGATIVE (NEGATIVE); PROTEIN,URINE 100 mg/dL (NEGATIVE); URINE SPECIFIC GRAVITY 1.014; UROBILINOGEN,URINE NEGATIVE mg/dL (<2.0)
[2018-06-07 19:15] LABS: ALANINE AMINOTRANSFERASE 27 U/L (9-52); ALKALINE PHOSPHATASE 88 U/L (38-126); ANION GAP 8 (5-19); ASPARTATE AMINO TRANSFERASE 33 U/L (14-36); BILIRUBIN,DIRECT 0.3 mg/dL (0.0-0.4); BILIRUBIN,TOTAL 0.7 mg/dL (0.2-1.3); BLOOD UREA NITROGEN 32 mg/dL (7-20); CALCIUM 9.9 mg/dL (8.4-10.2); CARBON DIOXIDE 32 mmol/L (22-30); CHLORIDE 103 mmol/L (98-107); GLUCOSE 95 mg/dL (75-110); LIPASE 46.7 U/L (23-300); POTASSIUM 3.6 mmol/L (3.6-5.0); SODIUM 142.5 mmol/L (137-145); TOTAL PROTEIN 7.8 g/dL (6.3-8.2)
--- NOTE | 2018-06-07 21:20 | RADIOLOGY REPORT (SQ) ---
EXAM DESCRIPTION: CT ABDOMEN PELVIS WITH IV CONTRAST COMPLETED DATE/TME: 06/07/2018 00:00 CLINICAL HISTORY: 83 years Female diffuse abd pain COMPARISON: 06/03/2017. TECHNIQUE: Contiguous axial images obtained through the abdomen and pelvis following IV contrast. Reformatted images obtained. This exam was performed according to our department optimization program which includes automated exposure control, adjustment of the mA and/or kv according to patient size and/or use of iterative reconstruction technique. FINDINGS: Mild cardiac enlargement. Liver appears unremarkable. There has been resolution of the previously mentioned cystic lesion in the head of the pancreas consistent with resolved pseudocyst. Pancreas appears otherwise unremarkable. Unremarkable spleen. No discrete adrenal mass. The adrenal glands are thickened and lobular particularly on the left. This appears unchanged and may reflect hyperplasia. Numerous renal cysts are present bilaterally similar to the previous exam with numerous areas of lobular scarring and heterogeneity in the renal parenchyma which also appears unchanged, particularly involving the inferior pole of the left kidney. There is no evidence of hydronephrosis. The gallbladder is visualized. No aneurysmal dilatation of the aorta. There is calcification in aorta and its branches. There is occlusion of the left common iliac artery with reconstitution of the distal aspect. The external iliac artery is small in caliber. No bowel obstruction. The appendix is unremarkable. No significant free fluid noted. There is an indeterminant low-attenuation area in the left ovary. Recommend further evaluation with ultrasound. This measures 2.5 cm. Moderate fecal material in the colon. IMPRESSION: Numerous renal cysts bilaterally with areas of scarring similar to the previous examination. This includes heterogeneity in the inferior pole the left kidney which appears stable Prominent adrenal gland suggesting hyperplasia Low-attenuation lesion in the ovary on the left which is indeterminate. 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
[2018-06-07] MEDS ORDERED: ACETAMINOPHEN 325 MG TABLET PO ONE (23:07)
[2018-06-07 23:15] VITALS: BP 140/70
--- NOTE | 2018-06-07 23:35 | EKG REPORT ---
SEVERITY:- ABNORMAL ECG - SINUS RHYTHM LEFT VENTRICULAR HYPERTROPHY ABNORMAL T, CONSIDER ISCHEMIA, ANT-LAT LEADS : Confirmed by: Yesenia Allen MD 07-Jun-2018 23:34:23
== END 2018-06-07 23:15 | disposition home or self-care (01) ==
LOC: ER 13:25
DX: M79.18 Myalgia, other site (principal); Q61.02 Congenital multiple renal cysts; N83.9 Noninflammatory disorder of ovary, fallopian tube and broad ligament, unspecified; I74.5 Embolism and thrombosis of iliac artery; R53.1 Weakness; R10.84 Generalized abdominal pain; R14.0 Abdominal distension (gaseous); I10 Essential (primary) hypertension; Z86.73 Personal history of transient ischemic attack (TIA), and cerebral infarction without residual deficits
CPT/HCPCS: 93005; 99285; 36415; 86677; 87086; 82553; 82140; 82550; 83690; 85025; 80053; 81001; 84484; 71045; 70450; 74177; 93010; A9270

== ENCOUNTER 2018-07-18 10:34 | Inpatient (IN) | payer MEDICARE ==
--- NOTE | 2018-07-18 11:00 | RADIOLOGY REPORT (SQ) ---
EXAM DESCRIPTION: CT HEAD WITHOUT COMPLETED DATE/TIME: 07/18/2018 10:49 am REASON FOR STUDY: bed 3- confusion stroke r/o COMPARISON: CT brain 06/07/2018, 11/22/2017, 07/18/2013 TECHNIQUE: Axial images acquired through the brain without intravenous contrast. Images reviewed wi th bone, brain and subdural windows. Additional sagittal and coronal reconstructions were generated. Images stored on PACS. All CT scanners at this facility use dose modulation, iterative reconstruction, and/or weight based d osing when appropriate to reduce radiation dose to as low as reasonably achievable (ALARA). [facility]: Dose Right [facility]: CareDose [facility]: Dose Right [facility]: Teradose 4D [facility]: [employer] RADIATION DOSE: CT Rad equipment meets quality standard of care and radiation dose reduction techniq ues were employed. CTDIvol: 53.2 mGy. DLP: 1044 mGy-cm. mGy. LIMITATIONS: None. FINDINGS: VENTRICLES: Normal size and contour. CEREBRUM: No CT evidence of acute large territory ischemic change, acute intracranial hemorrhage, mas s effect, or midline shift. Old right frontal and right parietal cortical and subcortical white matte r infarcts. Extensive hemispheric low attenuation from small vessel ischemic change. Old lacunar in farcts right and left thalamus. CEREBELLUM: Multiple old infarcts in the right and left cerebellar hemispheres. No acute ischemic [place] or acute posterior fossa hemorrhage or midline shift. EXTRAAXIAL SPACES: No fluid collections. No masses. ORBITS AND GLOBE: No intra- or extraconal masses. Normal contour of globe without masses. CALVARIUM: No fracture. PARANASAL SINUSES: No fluid or mucosal thickening. SOFT TISSUES: No mass or hematoma. OTHER: No other significant finding. IMPRESSION: No acute findings. 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 EVIDENCE OF ACUTE STROKE: NO. COMMENT: Quality ID # [id number]: Final reports with documentation of one or more dose reduction techniques (e.g., Automated exposure control, adjustment of the mA and/or kV according to patient size, use of iterative reconstruction technique) TECHNICAL DOCUMENTATION: JOB ID: [id number] [employer]- All Rights Reserved Reading location - IP/workstation name: [email or web address]
--- NOTE | 2018-07-18 11:20 | RADIOLOGY REPORT (SQ) ---
EXAM DESCRIPTION: CHEST SINGLE VIEW COMPLETED DATE/TIME: 07/18/2018 11:00 am REASON FOR STUDY: bed 3- confusion stroke r/o COMPARISON: 06/07/2018 EXAM PARAMETERS: NUMBER OF VIEWS: One view. TECHNIQUE: Single frontal radiographic view of the chest acquired. RADIATION DOSE: NA LIMITATIONS: None. FINDINGS: LUNGS AND PLEURA: No opacities, masses or pneumothorax. No pleural effusion. MEDIASTINUM AND HILAR STRUCTURES: No masses. Contour normal. HEART AND VASCULAR STRUCTURES: Cardiomegaly. BONES: No acute findings. HARDWARE: None in the chest. OTHER: No other significant finding. IMPRESSION: Cardiomegaly without acute abnormality of the lungs in AP projection. TECHNICAL DOCUMENTATION: JOB ID: [id number] [employer]- All Rights Reserved Reading location - IP/workstation name: [email or web address]
[2018-07-18 11:41] LABS: INTERNATIONAL RATION (INR) 0.98; PARTIAL THROMBOPLASTIN TIME 26.5 SEC (23.5-35.8)
[2018-07-18 11:46] LABS: PROTHROMBIN TIME 13.5 SEC (11.4-15.4)
[2018-07-18 11:52] LABS: ABSOLUTE LYMPHOCYTES (AUTO) 1.4 10^3/uL (0.5-4.7); ABSOLUTE MONOCYTES (AUTO) 0.7 10^3/uL (0.1-1.4); ABSOLUTE NEUT (AUTO) 10.2 10^3/uL (1.7-8.2); BASOPHILS % (AUTO) 0.2 % (0-2); HEMATOCRIT 37.8 % (36.0-47.0); HEMOGLOBIN 12.9 g/dL (12.0-15.5); LYMPHOCYTES % (AUTO) 11.5 % (13-45); MEAN CORPUSCULAR HEMOGLOBIN 27.1 pg (27.0-33.4); MEAN CORPUSCULAR VOLUME 80 fl (80-97); MONOCYTES % (AUTO) 5.3 % (3-13); PLATELET COUNT 231 10^3/uL (150-450); RED BLOOD COUNT 4.75 10^6/uL (3.72-5.28); TOTAL CELLS COUNTED % (AUTO) 100 %; WHITE BLOOD COUNT 12.3 10^3/uL (4.0-10.5)
[2018-07-18 11:54] LABS: ALANINE AMINOTRANSFERASE 38 U/L (9-52); ALKALINE PHOSPHATASE 81 U/L (38-126); ANION GAP 10 (5-19); ASPARTATE AMINO TRANSFERASE 62 U/L (14-36); BILIRUBIN,DIRECT 0.4 mg/dL (0.0-0.4); BILIRUBIN,TOTAL 0.9 mg/dL (0.2-1.3); BLOOD UREA NITROGEN 49 mg/dL (7-20); CALCIUM 9.5 mg/dL (8.4-10.2); CARBON DIOXIDE 30 mmol/L (22-30); CHLORIDE 105 mmol/L (98-107); CREATINE KINASE 663 U/L (30-135); GLUCOSE 114 mg/dL (75-110); POTASSIUM 3.3 mmol/L (3.6-5.0); SODIUM 144.5 mmol/L (137-145); TOTAL PROTEIN 6.9 g/dL (6.3-8.2)
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
[2018-07-18 12:01] LABS: CREATINE KINASE MB 13.2 ng/mL (<4.55)
[2018-07-18 12:07] LABS: TROPONIN I 0.038 ng/mL
[2018-07-18 14:25] LABS: AMORPHOUS SEDIMENT,URINE TRACE /HPF; APPEARANCE,URINE SLIGHTLY-CLOUDY; BILIRUBIN,URINE NEGATIVE (NEGATIVE); COLOR,URINE YELLOW; GLUCOSE, URINE NEGATIVE (NEGATIVE); KETONES,URINE NEGATIVE (NEGATIVE); LEUKOCYTE ESTERASE,URINE NEGATIVE (NEGATIVE); NITRITE,URINE NEGATIVE (NEGATIVE); PROTEIN,URINE >=500 mg/dL (NEGATIVE); URINE SPECIFIC GRAVITY 1.019; UROBILINOGEN,URINE NEGATIVE mg/dL (<2.0)
[2018-07-18 14:44] LABS: URINE AMPHETAMINES SCREEN NEGATIVE; URINE BARBITURATES SCREEN NEGATIVE; URINE BENZODIAZEPINES SCREEN NEGATIVE; URINE COCAINE SCREEN NEGATIVE; URINE MARIJUANA (THC) SCREEN NEGATIVE; URINE METHADONE SCREEN NEGATIVE; URINE PHENCYCLIDINE SCREEN NEGATIVE
[2018-07-18] MEDS ORDERED: NORMAL SALINE 500 ML IV ONE (15:12)
[2018-07-18] MEDS ORDERED: ONDANSETRON HCL INJ/PF 4 MG/2 ML SDV IV PRN (16:41)
[2018-07-18] MEDS ORDERED: NORMAL SALINE 1000 ML 1,000 ML IV PRN (16:41)
[2018-07-18] MEDS ORDERED: ACETAMINOPHEN 325 MG TABLET PO PRN (16:41)
--- NOTE | 2018-07-18 17:18 | PDOC PROGRESS REPORT ---
Subjective Progress Note for:: 07/18/18 Subjective:: 07/18/[id number]-uecx-old female with history of hypertension brought to the emergency room by the family members with complaints of change in mental status. She was seen last Wednesday with normal behavior and stepdaughter went to see the pt today and noticed the blinds are not open, she felt something is wrong she opened the dooe went into the house immediately stepped onto a pool of water , started calling her mom come to out of the restroom and found her mom at the doorstep of the bedroom with pants down and not properly wearing the clothes when questioned what happened , patient stating blankly at her, looking confused and agitated. So the stepdaughter called for help and during that time patient fell one time without injuring herself. And the family members also noticed patient is unable to following the instructions. They took the patient stepdaughters home and still found to be confused and agitated also. Did not notice any nausea vomiting diarrhea . No fever cough cold was reported. Appetite was poor. because of the confusion and agitation and anxiety family brought her to the emergency room for further evaluation. By the time i went to see the patient patient was in ER, mittens were placed because pt is pulled out the nasal cannula pulled out the IV lines so as a preventive measure hands are covered with mittens. Patient is unable to give a history at all except for laughing. Stepdaughter able to provide the information of what exactly happened. CT head was negative during the ER evaluation. Chest x-ray was also negative. Urine drug screen was negative. Patient lives alone family is requesting for placement. Reason For Visit: ALTERED MENTAL STATE Physical Exam Vital Signs: Temp Pulse Resp BP Pulse Ox 79 18 185/72 H 96 07/18/18 12:00 07/18/18 12:00 07/18/18 12:00 07/18/18 12:00 General appearance: PRESENT: mild distress Head exam: PRESENT: atraumatic Eye exam: PRESENT: PERRLA Mouth exam: PRESENT: moist, tongue midline Neck exam: ABSENT: carotid bruit, JVD, lymphadenopathy, thyromegaly Respiratory exam: PRESENT: decreased breath sounds Cardiovascular exam: PRESENT: tachycardia GI/Abdominal exam: PRESENT: normal bowel sounds, soft. ABSENT: distended, guarding, mass, organolmegaly, rebound, tenderness Extremities exam: PRESENT: full ROM. ABSENT: calf tenderness, clubbing, pedal e shea Neurological exam: PRESENT: alert, awake, oriented to person, oriented to place, oriented to time, oriented to situation, CN II-XII grossly intact. ABSENT: motor sensory deficit Psychiatric exam: PRESENT: appropriate affect, normal mood. ABSENT: homicidal ideation, suicidal ideation Results Laboratory Results: 07/18/18 11:25 07/18/18 11:25 07/18/18 07/18/18 07/18/18 11:25 11:25 14:00 WBC 12.3 H RBC 4.75 Hgb 12.9 Hct 37.8 MCV 80 MCH 27.1 MCHC 34.0 RDW 16.0 H Plt Count 231 Seg Neutrophils % 83.0 H Lymphocytes % 11.5 L Monocytes % 5.3 Eosinophils % 0.0 Basophils % 0.2 Absolute Neutrophils 10.2 H Absolute Lymphocytes 1.4 Absolute Monocytes 0.7 Absolute Eosinophils 0.0 Absolute Basophils 0.0 Sodium 144.5 Potassium 3.3 L Chloride 105 Carbon Dioxide 30 Anion Gap 10 BUN 49 H Creatinine 1.88 H Est GFR ( Amer) 31 L Est GFR (Non-Af Amer) 26 L Glucose 114 H Calcium 9.5 Total Bilirubin 0.9 AST 62 H ALT 38 Alkaline Phosphatase 81 Total Protein 6.9 Albumin 4.0 Urine Color YELLOW Urine Appearance SLIGHTLY-CLOUDY Urine pH 5.0 Ur Specific [place] 1.019 Urine Protein >=500 H Urine Glucose (UA) NEGATIVE Urine Ketones NEGATIVE Urine Blood MODERATE H Urine Nitrite NEGATIVE Ur Leukocyte Esterase NEGATIVE Urine WBC (Auto) 3 Urine RBC (Auto) 7 07/18/18 07/18/18 11:25 11:25 Creatine Kinase 663 H CK-MB (CK-2) 13.20 H Troponin I 0.038 Impressions: Chest X-Ray 07/18/18 10:37 IMPRESSION: Cardiomegaly without acute abnormality of the lungs in AP projection. Head CT 07/18/18 10:37 IMPRESSION: No acute findings. 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 EVIDENCE OF ACUTE STROKE: NO. Assessment & Plan - Diagnosis (1) Altered mental status Qualifiers: Altered mental status type: unspecified Qualified Code(s): R41.82 - Altered mental status, unspecified Is this a current diagnosis for this admission?: Yes Plan: 07/18/2018-plan for the altered mental status he is to put her on I am ICU she is a full code aspiration, fall, seizure precautions were requested. MRI of the brain without contrast was requested. Neurochecks were requested. Patient was placed on Ativan 0.5 mg IV every 4-6 as needed for agitation. PT consult social services specialist consult was requested. Altered mental status probably secondary to nonspecific causes. Elizondo's catheter was placed heart rate on IV fluids n ormal saline at 50 cc/h carotid Doppler was requested. Patient was placed on bedrest. pt is a full code. (2) Hypokalemia Is this a current diagnosis for this admission?: Yes Plan: 07/18/2018-potassium level is 3.3. Managed to give 40 mg of potassium liquid p.o. 8 x 1 dose. Planning to do the follow-up chemistry tomorrow. (3) Chronic kidney disease (CKD) Is this a current diagnosis for this admission?: Yes Plan: 07/18/2018 admission creatinine is 1.88 previous creatinine 2 months ago was 1.57. Acute on chronic renal insufficiency probably secondary to prerenal status. She was started on IV fluids normal saline at 50 cc/h. (4) Hypertension Is this a current diagnosis for this admission?: Yes Plan: 07/18/2018-patient blood pressure is 185/72. Patient is on blood pressure medications at home we do not have that information. Started on lisinopril 10 mg p.o. daily amlodipine 5 mg p.o. daily. wiill do daily measurements of the blood pressures. (5) Rhabdomyolysis Is this a current diagnosis for this admission?: Yes Plan: 07/18/2018 admission CPK level is a 661. Elevated CPK levels probably secondary to history of falls. Started on IV fluids normal saline 50 cc/h we going to do the follow-up CPK levels. - Time Time Spent with patient: 15-24 minutes Smoking Cessation Education: over 10 minutes Medications reviewed and adjusted accordingly: Yes Anticipated discharge: SNF
[2018-07-18] MEDS ORDERED: POTASSIUM CHLORIDE 20 MEQ/15 ML UDCUP PO ONE (18:30)
--- NOTE | 2018-07-18 18:30 | EKG REPORT ---
SEVERITY:- ABNORMAL ECG - SINUS RHYTHM LEFT VENTRICULAR HYPERTROPHY BORDERLINE PROLONGED QT INTERVAL : Confirmed by: Yesenia Allen MD 18-Jul-2018 18:30:23
[2018-07-18] MEDS: METOPROLOL TARTRATE 25 MG TABLET PO SCH (22:04)
--- NOTE | 2018-07-18 22:37 | RADIOLOGY REPORT (SQ) ---
EXAM DESCRIPTION: MR BRAIN WITHOUT IV CONTRAST COMPLETED DATE/TME: 07/18/2018 00:00 CLINICAL HISTORY: 83 years, Female, altered mental status COMPARISON: CT brain from today's date TECHNIQUE: 250 Images stored on PACS. LIMITATIONS: None. FINDINGS: Sagittal midline anatomic structures shows an unremarkable appearance to the pituitary and suprasellar regions. There is extensive motion artifact which significantly limits the exam. As visualized the globes are intact. Paranasal sinuses and mastoid air cells are grossly unremarkable. Normal flow void in visualized intracranial vessels. The visualized cranial nerve complex these are unremarkable. No gross abnormality on gradient sequences to suggest acute hemorrhage. Probable calcified meningioma in the right frontal parietal region. Diffusion-weighted images show no evidence for acute infarct. Diffuse atrophy. Extensive small vessel ischemic change. As described previously there are multiple areas of old infarct, in the right frontal, and right parietal regions as well as in the bilateral thalami. 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 IMPRESSION: Limited due to extensive motion however no convincing evidence for an acute intracranial abnormality. 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 copyright 2010 [employer]- All Rights Reserved
[2018-07-18] MEDS: DOCUSATE SODIUM 100 MG CAPSULE PO SCH (23:03)
[2018-07-18] MEDS: FAMOTIDINE INJ/PF 20 MG/2 ML SDV IV SCH (23:03)
[2018-07-18] MEDS ORDERED: POTASSIUM CHLORIDE 20 MEQ/15 ML UDCUP ONE ×2 (23:06→23:08)
[2018-07-19 06:19] LABS: ABSOLUTE LYMPHOCYTES (AUTO) 1.8 10^3/uL (0.5-4.7); ABSOLUTE MONOCYTES (AUTO) 0.8 10^3/uL (0.1-1.4); ABSOLUTE NEUT (AUTO) 7.3 10^3/uL (1.7-8.2); BASOPHILS % (AUTO) 0.5 % (0-2); EOSINOPHILS % (AUTO) 0.3 % (0-6); HEMATOCRIT 36.9 % (36.0-47.0); HEMOGLOBIN 12.4 g/dL (12.0-15.5); LYMPHOCYTES % (AUTO) 18.2 % (13-45); MEAN CORPUSCULAR HEMOGLOBIN 26.7 pg (27.0-33.4); MEAN CORPUSCULAR HGB CONC 33.5 g/dL (32.0-36.0); MEAN CORPUSCULAR VOLUME 80 fl (80-97); MONOCYTES % (AUTO) 8.4 % (3-13); PLATELET COUNT 210 10^3/uL (150-450); RED BLOOD COUNT 4.63 10^6/uL (3.72-5.28); SEGMENTED NEUTROPHILS % (AUTO) 72.6 % (42-78); TOTAL CELLS COUNTED % (AUTO) 100 %; WHITE BLOOD COUNT 10.1 10^3/uL (4.0-10.5)
[2018-07-19 06:40] LABS: ALANINE AMINOTRANSFERASE 34 U/L (9-52); ALBUMIN 3.3 g/dL (3.5-5.0); ALKALINE PHOSPHATASE 70 U/L (38-126); ANION GAP 5 (5-19); ASPARTATE AMINO TRANSFERASE 42 U/L (14-36); BILIRUBIN,DIRECT 0.3 mg/dL (0.0-0.4); BILIRUBIN,TOTAL 0.6 mg/dL (0.2-1.3); BLOOD UREA NITROGEN 44 mg/dL (7-20); CARBON DIOXIDE 29 mmol/L (22-30); CHLORIDE 111 mmol/L (98-107); CHOLESTEROL 253.64 mg/dL (0-200); GLUCOSE 112 mg/dL (75-110); POTASSIUM 3.6 mmol/L (3.6-5.0); SODIUM 145.3 mmol/L (137-145); TOTAL PROTEIN 6.2 g/dL (6.3-8.2); TRIGLYCERIDES 205 mg/dL (<150)
[2018-07-19 06:50] LABS: DIRECT LDL 121 mg/dL (<100)
--- NOTE | 2018-07-19 07:56 | EKG REPORT ---
SEVERITY:- ABNORMAL ECG - SINUS RHYTHM LVH WITH SECONDARY REPOLARIZATION ABNORMALITY ABNORMAL T, PROBABLE ISCHEMIA, LATERAL LEADS BORDERLINE PROLONGED QT INTERVAL : Confirmed by: Yesenia Allen MD 19-Jul-2018 07:54:45
--- NOTE | 2018-07-19 08:55 | PDOC H&P ---
History of Present Illness Admission Date/PCP: 07/18/18 15:27 Patient complains of: Confusion History of Present Illness: LLOYD SOL is a 83 year old female with history of hypertension brought to the emergency room by the family members with complaints of change in mental status. She was seen last Wednesday with normal behavior and stepdaughter went to see the pt today and noticed the blinds are not open, she felt something is wrong she opened the dooe went into the house immediately stepped onto a pool of water , started calling her mom come to out of the restroom and found her mom at the doorstep of the bedroom with pants down and not properly wearing the clothes when questioned what happened , patient stating blankly at her, looking confused and agitated. So the stepdaughter called for help and during that time patient fell one time without injuring herself. And the family members also noticed patient is unable to following the instructions. They took the patient stepdaughters home and still found to be confused and agitated also. Did not notice any nausea vomiting diarrhea . No fever cough cold was reported. Appetite was poor. because of the confusion and agitation and anxiety family brought her to the emergency room for further evaluation. By the time i went to see the patient patient was in ER, mittens were placed because pt is pulled out the nasal cannula pulled out the IV lines so as a preventive measure hands are covered with mittens. Patient is unable to give a history at all except for laughing. Stepdaughter able to provide the information of what exactly happened. CT head was negative during the ER evaluation. Chest x-ray was also negative. Urine drug screen was negative. Patient lives alone family is requesting for placement. Reason For Visit: Past Medical History Cardiac Medical History: Reports: Hypertension Psychiatric Medical History: Denies: Depression Social History Lives with: Alone Smoking Status: Current Every Day Smoker Frequency of Alcohol Use: None Hx Recreational Drug Use: No Drugs: None Hx Prescription Drug Abuse: No - Advance Directive Resuscitation Status: Full Code Family History Family History: Reviewed & Not Pertinent Parental Family History Reviewed: Yes Children Family History Reviewed: Yes Sibling(s) Family History Reviewed.: Yes Medication/Allergy Home Medications: Nifedipine [Nifedipine ER] 60 mg PO Q12 07/18/18 Allergies/Adverse Reactions: No Known Allergies Allergy (Verified 06/07/18 13:38) Review of Systems Constitutional: ABSENT: fever(s), headache(s) Eyes: ABSENT: visual disturbances Ears: ABSENT: hearing changes Nose, Mouth, and Throat: ABSENT: headache(s) Cardiovascular: ABSENT: dyspnea on exertion, edema, orthropnea, palpitations Gastrointestinal: PRESENT: nausea, other - Poor appetite Neurological: PRESENT: confusion, dizziness, weakness, other - Falls Psychiatric: PRESENT: anxiety Physical Exam Vital Signs: Temp Pulse Resp BP Pulse Ox 98.0 F 57 L 16 182/73 H 96 07/19/18 03:29 07/19/18 07:00 07/19/18 03:29 07/19/18 03:29 07/19/18 03:29 Intake & Output 07/18/18 07/19/18 07/20/18 06:59 06:59 06:59 Weight 68.4 kg General appearance: PRESENT: no acute distress Head exam: PRESENT: atraumatic Eye exam: PRESENT: PERRLA Mouth exam: PRESENT: moist Neck exam: ABSENT: carotid bruit, JVD, lymphadenopathy, thyromegaly Respiratory exam: PRESENT: clear to auscultation marija. ABSENT: rales, rhonchi, wheezes Cardiovascular exam: PRESENT: RRR. ABSENT: diastolic murmur, rubs, systolic murmur GI/Abdominal exam: PRESENT: normal bowel sounds, soft. ABSENT: distended, guarding, mass, organolmegaly, rebound, tenderness Extremities exam: PRESENT: full ROM. ABSENT: calf tenderness, clubbing, pedal edema Neurological exam: PRESENT: alert, awake, oriented to person, oriented to place, oriented to time, oriented to situation, CN II-XII grossly intact. ABSENT: motor sensory deficit Psychiatric exam: PRESENT: appropriate affect, normal mood. ABSENT: homicidal i deation, suicidal ideation Results Laboratory Results: 07/19/18 05:10 07/19/18 05:10 07/18/18 07/18/18 07/18/18 11:25 11:25 14:00 WBC 12.3 H RBC 4.75 Hgb 12.9 Hct 37.8 MCV 80 MCH 27.1 MCHC 34.0 RDW 16.0 H Plt Count 231 Seg Neutrophils % 83.0 H Lymphocytes % 11.5 L Monocytes % 5.3 Eosinophils % 0.0 Basophils % 0.2 Absolute Neutrophils 10.2 H Absolute Lymphocytes 1.4 Absolute Monocytes 0.7 Absolute Eosinophils 0.0 Absolute Basophils 0.0 Sodium 144.5 Potassium 3.3 L Chloride 105 Carbon Dioxide 30 Anion Gap 10 BUN 49 H Creatinine 1.88 H Est GFR ( Amer) 31 L Est GFR (Non-Af Amer) 26 L Glucose 114 H Calcium 9.5 Magnesium Total Bilirubin 0.9 AST 62 H ALT 38 Alkaline Phosphatase 81 Total Protein 6.9 Albumin 4.0 Triglycerides Cholesterol LDL Cholesterol Direct VLDL Cholesterol HDL Cholesterol TSH Urine Color YELLOW Urine Appearance SLIGHTLY-CLOUDY Urine pH 5.0 Ur Specific [place] 1.019 Urine Protein >=500 H Urine Glucose (UA) NEGATIVE Urine Ketones NEGATIVE Urine Blood MODERATE H Urine Nitrite NEGATIVE Ur Leukocyte Esterase NEGATIVE Urine WBC (Auto) 3 Urine RBC (Auto) 7 07/19/18 07/19/18 07/19/18 05:10 05:10 05:10 WBC 10.1 RBC 4.63 Hgb 12.4 Hct 36.9 MCV 80 MCH 26.7 L MCHC 33.5 RDW 16.0 H Plt Count 210 Seg Neutrophils % 72.6 Lymphocytes % 18.2 Monocytes % 8.4 Eosinophils % 0.3 Basophils % 0.5 Absolute Neutrophils 7.3 Absolute Lymphocytes 1.8 Absolute Monocytes 0.8 Absolute Eosinophils 0.0 Absolute Basophils 0.0 Sodium 145.3 H Potassium 3.6 Chloride 111 H Carbon Dioxide 29 Anion Gap 5 BUN 44 H Creatinine 1.37 H Est GFR ( Amer) 45 L Est GFR (Non-Af Amer) 37 L Glucose 112 H Calcium 9.0 Magnesium 2.3 Total Bilirubin 0.6 AST 42 H ALT 34 Alkaline Phosphatase 70 Total Protein 6.2 L Albumin 3.3 L Triglycerides 205 H Cholesterol 253.64 H LDL Cholesterol Direct 121 H VLDL Cholesterol 41.0 H HDL Cholesterol 39 L TSH 0.15 L Urine Color Urine Appearance Urine pH Ur Specific [place] Urine Protein Urine Glucose (UA) Urine Ketones Urine Blood Urine Nitrite Ur Leukocyte Esterase Urine WBC (Auto) Urine RBC (Auto) 07/18/18 07/18/18 07/18/18 11:25 11:25 19:58 Creatine Kinase 663 H 466 H CK-MB (CK-2) 13.20 H Troponin I 0.038 NT-Pro-B Natriuret Pep 07/19/18 05:10 Creatine Kinase CK-MB (CK-2) Troponin I NT-Pro-B Natriuret Pep 3540 H Impressions: Head MRI 07/18/18 00:00 IMPRESSION: Limited due to extensive motion however no convincing evidence for an acute intracranial abnormality. 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 copyright 2010 [employer]- All Rights Reserved Chest X-Ray 07/18/18 10:37 IMPRESSION: Cardiomegaly without acute abnormality of the lungs in AP projection. Head CT 07/18/18 10:37 IMPRESSION: No acute findings. 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 EVIDENCE OF ACUTE STROKE: NO. Assessment & Plan - Diagnosis (1) Altered mental status Qualifiers: Altered mental status type: unspecified Qualified Code(s): R41.82 - Altered mental status, unspecified Is this a current diagnosis for this admission?: Yes Plan: 07/18/2018-plan for the altered mental status he is to put her on I am ICU she is a full code aspiration, fall, seizure precautions were requested. MRI of the brain without contrast was requested. Neurochecks were requested. Patient was placed on Ativan 0.5 mg IV every 4-6 as needed for agitation. PT consult social worker assistant consult was requested. Altered mental status probably secondary to nonspecific causes. Elizondo's catheter was placed heart rate on IV fluids normal saline at 50 cc/h carotid Doppler was requested. Patient was placed on bedrest. pt is a full code. (2) Hypokalemia Is this a current diagnosis for this admission?: Yes Plan: 07/18/2018-potassium level is 3.3. Managed to give 40 mg of potassium liquid p.o. 8 x 1 dose. Planning to do the follow-up chemistry tomorrow. (3) Chronic kidney disease (CKD) Is this a current diagnosis for this admission?: Yes Plan: 07/18/2018 admission creatinine is 1.88 previous creatinine 2 months ago was 1.57. Acute on chronic renal insufficiency probably secondary to prerenal status. She was started on IV fluids normal saline at 50 cc/h. (4) Hypertension Is this a current diagnosis for this admission?: Yes Plan: 07/18/2018-patient blood pressure is 185/72. Patient is on blood pressure medications at home we do not have that information. Started on lisinopril 10 mg p.o. daily amlodipine 5 mg p.o. daily. wiill do daily measurements of the blood pressures. (5) Rhabdomyolysis Is this a current diagnosis for this admission?: Yes Plan: 07/18/2018 admission CPK level is a 661. Elevated CPK levels probably secondary to history of falls. Started on IV fluids normal saline 50 cc/h we going to do the follow-up CPK levels. - Time Time Spent: 50 to 70 Minutes Smoking Cessation Education: over 10 minutes Medications reviewed and adjusted accordingly: Yes Anticipated discharge: Home
[2018-07-19] MEDS ORDERED: AMLODIPINE BESYLATE 2.5 MG TABLET PO SCH (10:00)
[2018-07-19] MEDS: FAMOTIDINE INJ/PF 20 MG/2 ML SDV IV SCH ×2 (10:26→21:16)
[2018-07-19] MEDS: METOPROLOL TARTRATE 25 MG TABLET PO SCH ×2 (10:26→21:15)
[2018-07-19] MEDS: LISINOPRIL 10 MG TABLET PO SCH (10:27)
[2018-07-19] MEDS: DOCUSATE SODIUM 100 MG CAPSULE PO SCH ×2 (10:28→17:43)
[2018-07-19] MEDS: ENOXAPARIN SODIUM INJ 30 MG/0.3 ML DISP.SYRIN SUBCUT SCH (10:28)
--- NOTE | 2018-07-19 11:35 | RADIOLOGY REPORT (SQ) ---
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 TECHNIQUE: Grayscale ultrasound, Doppler velocity and spectra, and color Doppler images acquired of the extra-cranial carotid and vertebral arteries. Images stored on PACS. LIMITATIONS: None. FINDINGS: RIGHT CAROTID CCA Velocities: Within normal limits. ICA Velocities Peak systolic 66 cm/s. End diastolic 16 cm/s. Proximal ICA/CCA peak systolic ratio 1.4. There is minimal plaque in the bulb. LEFT CAROTID CCA Velocities: Within normal limits. ICA Velocities Peak systolic 110 cm/s. End diastolic 22 cm/s. Proximal ICA/CCA peak systolic ratio 2.1. There is shadowing plaque in the carotid bulb. VERTEBRAL ARTERIES: Antegrade flow. Normal waveforms. SUBCLAVIAN ARTERIES: No finding. OTHER: No other significant finding. IMPRESSION: NO HEMODYNAMICALLY SIGNIFICANT STENOSIS. COMMENT: Quality ID #[id number]: Velocity criteria are extrapolated from the diameter data as defined by t he Society of Radiologists in Ultrasound Consensus Conference. Radiology 2003: 229; 340-346. TECHNICAL DOCUMENTATION: JOB ID: [id number] [employer]- All Rights Reserved Reading location - IP/workstation name: [email or web address]
--- NOTE | 2018-07-19 13:36 | PDOC PROGRESS REPORT ---
Subjective Progress Note for:: 07/19/18 Subjective:: 07/18/20181038-89-tjmd-old female with history of hypertension brought to the emergency room by the family members with complaints of change in mental status. She was seen last Wednesday with normal behavior and stepdaughter went to see the pt today and noticed the blinds are not open, she felt something is wrong she opened the dooe went into the house immediately stepped onto a pool of water , started calling her mom come to out of the restroom and found her mom at the doorstep of the bedroom with pants down and not properly wearing the clothes when questioned what happened , patient stating blankly at her, looking confused and agitated. So the stepdaughter called for help and during that time patient fell one time without injuring herself. And the family members also noticed patient is unable to following the instructions. They took the patient stepdaughters home and still found to be confused and agitated also. Did not notice any nausea vomiting diarrhea . No fever cough cold was reported. Appetite was poor. because of the confusion and agitation and anxiety family brought her to the emergency room for further evaluation. By the time i went to see the patient patient was in ER, mittens were placed because pt is pulled out the nasal cannula pulled out the IV lines so as a preventive measure hands are covered with mittens. Patient is unable to give a history at all except for laughing. Stepdaughter able to provide the information of what exactly happened. CT head was negative during the ER evaluation. Chest x-ray was also negative. Urine drug screen was negative. Patient lives alone family is requesting for placement. 07/19/2018 no acute events in the last 24 hours. She is still confused. But she is not agitated or anxious like yesterday. Afebrile. All the workup so far is negative. Reason For Visit: ALTERED MENTAL STATUS Physical Exam Vital Signs: Temp Pulse Resp BP Pulse Ox 98.0 F 57 L 16 182/73 H 96 07/19/18 03:29 07/19/18 07:00 07/19/18 03:29 07/19/18 03:29 07/19/18 03:29 Intake & Output 07/18/18 07/19/18 07/20/18 06:59 06:59 06:59 Weight 68.4 kg General appearance: PRESENT: no acute distress Head exam: PRESENT: atraumatic Eye exam: PRESENT: PERRLA Mouth exam: PRESENT: dry mucosa Neck exam: ABSENT: carotid bruit, JVD, lymphadenopathy, thyromegaly Respiratory exam: PRESENT: decreased breath sounds Cardiovascular exam: PRESENT: systolic murmur, tachycardia GI/Abdominal exam: PRESENT: normal bowel sounds, soft. ABSENT: distended, guarding, mass, organolmegaly, rebound, tenderness Extremities exam: PRESENT: full ROM. ABSENT: calf tenderness, clubbing, pedal edema Neurological exam: PRESENT: alert, CN II-XII grossly intact, other - Patient is still confused but no focal neurological deficits. Psychiatric exam: PRESENT: anxious Results Laboratory Results: 07/19/18 05:10 07/19/18 05:10 07/18/18 07/19/18 07/19/18 14:00 05:10 05:10 WBC 10.1 RBC 4.63 Hgb 12.4 Hct 36.9 MCV 80 MCH 26.7 L MCHC 33.5 RDW 16.0 H Plt Count 210 Seg Neutrophils % 72.6 Lymphocytes % 18.2 Monocytes % 8.4 Eosinophils % 0.3 Basophils % 0.5 Absolute Neutrophils 7.3 Absolute Lymphocytes 1.8 Absolute Monocytes 0.8 Absolute Eosinophils 0.0 Absolute Basophils 0.0 Sodium 145.3 H Potassium 3.6 Chloride 111 H Carbon Dioxide 29 Anion Gap 5 BUN 44 H Creatinine 1.37 H Est GFR ( Amer) 45 L Est GFR (Non-Af Amer) 37 L Glucose 112 H Calcium 9.0 Magnesium 2.3 Total Bilirubin 0.6 AST 42 H ALT 34 Alkaline Phosphatase 70 Total Protein 6.2 L Albumin 3.3 L Triglycerides 205 H Cholesterol 253.64 H LDL Cholesterol Direct 121 H VLDL Cholesterol 41.0 H HDL Cholesterol 39 L TSH Urine Color YELLOW Urine Appearance SLIGHTLY-CLOUDY Urine pH 5.0 Ur Specific Halls 1.019 Urine Protein >=500 H Urine Glucose (UA) NEGATIVE Urine Ketones NEGATIVE Urine Blood MODERATE H Urine Nitrite NEGATIVE Ur Leukocyte Esterase NEGATIVE Urine WBC (Auto) 3 Urine RBC (Auto) 7 07/19/18 05:10 WBC RBC Hgb Hct MCV MCH MCHC RDW Plt Count Seg Neutrophils % Lymphocytes % Monocytes % Eosinophils % Basophils % Absolute Neutrophils Absolute Lymphocytes Absolute Monocytes Absolute Eosinophils Absolute Basophils Sodium Potassium Chloride Carbon Dioxide Anion Gap BUN Creatinine Est GFR ( Amer) Est GFR (Non-Af Amer) Glucose Calcium Magnesium Total Bilirubin AST ALT Alkaline Phosphatase Total Protein Albumin Triglycerides Cholesterol LDL Cholesterol Direct VLDL Cholesterol HDL Cholesterol TSH 0.15 L Urine Color Urine Appearance Urine pH Ur Specific Halls Urine Protein Urine Glucose (UA) Urine Ketones Urine Blood Urine Nitrite Ur Leukocyte Esterase Urine WBC (Auto) Urine RBC (Auto) 07/18/18 07/18/18 07/18/18 11:25 11:25 19:58 Creatine Kinase 663 H 466 H CK-MB (CK-2) 13.20 H Troponin I 0.038 NT-Pro-B Natriuret Pep 07/19/18 05:10 Creatine Kinase CK-MB (CK-2) Troponin I NT-Pro-B Natriuret Pep 3540 H Impressions: Head MRI 07/18/18 00:00 IMPRESSION: Limited due to extensive motion however no convincing evidence for an acute intracranial abnormality. 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 copyright 2010 [employer]- All Rights Reserved Chest X-Ray 07/18/18 10:37 IMPRESSION: Cardiomegaly without acute abnormality of the lungs in AP projection. Head CT 07/18/18 10:37 IMPRESSION: No acute findings. 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 EVIDENCE OF ACUTE STROKE: NO. Carotid Doppler Study 07/19/18 00:00 IMPRESSION: NO HEMODYNAMICALLY SIGNIFICANT STENOSIS. Assessment & Plan - Diagnosis (1) Altered mental status Qualifiers: Altered mental status type: unspecified Qualified Code(s): R41.82 - Altered mental status, unspecified Is this a current diagnosis for this admission?: Yes Plan: 07/18/2018-plan for the altered mental status he is to put her on I am ICU she is a full code aspiration, fall, seizure precautions were requested. MRI of the brain without contrast was requested. Neurochecks were requested. Patient was placed on Ativan 0.5 mg IV every 4-6 as needed for agitation. PT consult s ocial worker consult was requested. Altered mental status probably secondary to nonspecific causes. Elizondo's catheter was placed heart rate on IV fluids normal saline at 50 cc/h carotid Doppler was requested. Patient was placed on bedrest. pt is a full code. 07/19/2018 altered mental status/acute and coagulopathy due to unknown etiology. CT head was negative MRI of the brain was negative carotid Doppler was negative and the blood work came back negative so far. Neurochecks are negative. Skull therapy consult was requested probably patient may need to go to a rehab facility. (2) Hypokalemia Is this a current diagnosis for this admission?: Yes Plan: 07/18/2018-potassium level is 3.3. Managed to give 40 mg of potassium liquid p.o. 8 x 1 dose. Planning to do the follow-up chemistry tomorrow. 07/19/2018-potassium level is 3.6 today. Hypokalemia is resolved with potassium supplementation. (3) Chronic kidney disease (CKD) Is this a current diagnosis for this admission?: Yes Plan: 07/18/2018 admission creatinine is 1.88 previous creatinine 2 months ago was 1.57. Acute on chronic renal insufficiency probably secondary to prerenal status. She was started on IV fluids normal saline at 50 cc/h. 07/19/2018 admission creatinine is 1.88 and it came down to 1.37 today. Acute kidney injury is resolving. (4) Hypertension Is this a current diagnosis for this admission?: Yes Plan: 07/18/2018-patient blood pressure is 185/72. Patient is on blood pressure medications at home we do not have that information. Started on lisinopril 10 mg p.o. daily amlodipine 5 mg p.o. daily. wiill do daily measurements of the blood pressures. 07/19/2018-blood pressure today is 182/73. Patient is presently on amlodipine 2.5 mg p.o. daily, lisinopril 10 mg p.o. daily, metoprolol 12.5 mg p.o. twice daily. IV fluids discontinued today. Amlodipine was discontinued patient was put back on nifedipine 60 mg p.o. twice a day. (5) Rhabdomyolysis Is this a current diagnosis for this admission?: Yes Plan: 07/18/2018 admission CPK level is a 661. Elevated CPK levels probably secondary to history of falls. Started on IV fluids normal saline 50 cc/h we going to do the follow-up CPK levels. 07/19/2018-CPK level is 661 on admission probably secondary to falls. With IV fluids CPK levels came down to 466. (6) Smoker Is this a current diagnosis for this admission?: Yes Plan: 07/19/2018-patient is a chronic smoker she was placed on nicotine patch daily. S moking counseling was provided for more than 10 minutes. - Time Time Spent with patient: 15-24 minutes Smoking Cessation Education: over 10 minutes Medications reviewed and adjusted accordingly: Yes Anticipated discharge: SNF
[2018-07-19] MEDS: LORAZEPAM INJ 2 MG/1 ML VIAL IV PRN (19:08)
--- NOTE | 2018-07-19 20:06 | XCELERA REPORT ---
[address] [address] Transthoracic Echocardiogram Report Name: LLOYD SOL Age: 83 yrs Gender: Female : 1935 Patient Status: Inpatient Patient Location: [address] [place] [address] Study Date: 07/19/2018 09:29 AM Height: 64 in Weight: 150 lb BSA: 1.7 m2 Procedure: A two-dimensional transthoracic echocardiogram with color flow and Doppler was performed. Study Quality: Fair. Reason For Study: CARDIOMEGALY History: CARDIOMEGALY. Ordering Physician: HILDA YU Performed By: Jennifer Phillips Interpretation Summary The left ventricle is normal in size. There is mild concentric left ventricular hypertrophy. LV EF is > than 65% Left ventricular systolic function is normal. Doppler measurements suggest impaired left ventricular relaxation, which is associated with grade I/IV or mild diastolic dysfunction The left ventricular wall motion is normal. There is no thrombus. There is no ventricular septal defect visualized. The right ventricle is grossly normal size. The right atrium is normal. The left atrial size is normal. The interatrial septum is intact with no evidence for an atrial septal defect. There is no Doppler evidence for an interatrial shunt There is no evidence of mitral valve prolapse. There is no vegetation seen on the mitral valve. There is no mitral valve stenosis. There is no mitral regurgitation noted. There is no aortic valvular vegetation. There is no aortic valve stenosis There is aortic sclerosis without aortic stenosis. No aortic regurgitation is present. There is no tricuspid stenosis. No tricuspid regurgitation. Unable to calculate RVSP due lack of TR jet. There is no pulmonic valvular stenosis. There is no pulmonic valvular regurgitation. The aortic root is normal size. Minimal pericardial effusion. There are no echocardiographic or Doppler indications for cardiac tamponade MMode/2D Measurements & Calculations RVDd: 2.4 cm LVIDd: 4.0 cm FS: 41.5 % Ao root diam: 2.6 cm IVSd: 1.2 cm LVIDs: 2.3 cm EDV(Teich): 70.2 ml Ao root area: 5.4 cm2 LVPWd: 1.2 cm ESV(Teich): 19.0 ml LA dimension: 3.2 cm EF(Teich): 73.0 % Doppler Measurements & Calculations MV E max braden: MV P1/2t max braden: Ao V2 max: LV V1 max P.1 cm/sec 70.1 cm/sec 128.8 cm/sec 4.9 mmHg MV A max braden: MV P1/2t: 91.7 msec Ao max PG: LV V1 max: 102.7 cm/sec MVA(P1/2t): 2.4 cm2 6.6 mmHg 111.1 cm/sec MV E/A: 0.69 MV dec slope: 224.0 cm/sec2 MV dec time: 0.31 sec PA V2 max: MV P1/2t-pr_phl: 81.4 cm/sec 91.7 msec PA max P.7 mmHg Left Ventricle The left ventricle is normal in size. There is mild concentric left ventricular hypertrophy. LV EF is > than 65%. Left ventricular systolic function is normal. Doppler measurements suggest impaired left ventricular relaxation, which is associated with grade I/IV or mild diastolic dysfunction. The left ventricular wall motion is normal. There is no thrombus. There is no ventricular septal defect visualized. Right Ventricle The right ventricle is grossly normal size. The right ventricle is not well visualized secondary to technical limitations. Atria The right atrium is normal. The left atrial size is normal. The interatrial septum is intact with no evidence for an atrial septal defect. There is no Doppler evidence for an interatrial shunt. Mitral Valve There is no evidence of mitral valve prolapse. There is no vegetation seen on the mitral valve. There is no mitral valve stenosis. There is no mitral regurgitation noted. Aortic Valve There is no aortic valvular vegetation. There is no aortic valve stenosis. There is aortic sclerosis without aortic stenosis. No aortic regurgitation is present. Tricuspid Valve There is no tricuspid stenosis. No tricuspid regurgitation. Unable to calculate RVSP due lack of TR jet. Pulmonic Valve There is no pulmonic valvular stenosis. There is no pulmonic valvular regurgitation. Great Vessels The aortic root is normal size. Effusions Minimal pericardial effusion. There are no echocardiographic or Doppler indications for cardiac tamponade. : HILDA YU > Yesenia Allen
[2018-07-19] MEDS: NIFEDIPINE 30 MG TAB.ER.24 PO SCH (21:15)
[2018-07-19] MEDS ORDERED: (PENDING PHARMACY ID) (Nifedipine [Nifedipine Er] 60 MG) PO SCH (22:00)
[2018-07-20] MEDS ORDERED: METOPROLOL TARTRATE 50 MG TABLET PO ONE (01:30)
[2018-07-20] MEDS: NICOTINE 14 MG/24 HR PATCH.TD24 TD PRN (01:48)
[2018-07-20] MEDS: LORAZEPAM INJ 2 MG/1 ML VIAL IV PRN (03:56)
[2018-07-20] MEDS: ENOXAPARIN SODIUM INJ 30 MG/0.3 ML DISP.SYRIN SUBCUT SCH (09:38)
[2018-07-20] MEDS: DOCUSATE SODIUM 100 MG CAPSULE PO SCH ×2 (09:39→18:02)
[2018-07-20] MEDS: LISINOPRIL 10 MG TABLET PO SCH (09:39)
[2018-07-20] MEDS: NIFEDIPINE 30 MG TAB.ER.24 PO SCH ×2 (09:39→21:24)
[2018-07-20] MEDS: FAMOTIDINE INJ/PF 20 MG/2 ML SDV IV SCH (09:39)
[2018-07-20] MEDS: METOPROLOL SUCCINATE 50 MG TAB.SR.24H PO SCH (09:39)
--- NOTE | 2018-07-20 12:20 | PDOC PROGRESS REPORT ---
Subjective Progress Note for:: 07/20/18 Subjective:: 07/18/[id number]-yoot-old female with history of hypertension brought to the emergency room by the family members with complaints of change in mental status. She was seen last Wednesday with normal behavior and stepdaughter went to see the pt today and noticed the blinds are not open, she felt something is wrong she opened the dooe went into the house immediately stepped onto a pool of water , started calling her mom come to out of the restroom and found her mom at the doorstep of the bedroom with pants down and not properly wearing the clothes when questioned what happened , patient stating blankly at her, looking confused and agitated. So the stepdaughter called for help and during that time patient fell one time without injuring herself. And the family members also noticed patient is unable to following the instructions. They took the patient stepdaughters home and still found to be confused and agitated also. Did not notice any nausea vomiting diarrhea . No fever cough cold was reported. Appetite was poor. because of the confusion and agitation and anxiety family brought her to the emergency room for further evaluation. By the time i went to see the patient patient was in ER, mittens were placed because pt is pulled out the nasal cannula pulled out the IV lines so as a preventive measure hands are covered with mittens. Patient is unable to give a history at all except for laughing. Stepdaughter able to provide the information of what exactly happened. CT head was negative during the ER evaluation. Chest x-ray was also negative. Urine drug screen was negative. Patient lives alone family is requesting for placement. 07/19/2018 no acute events in the last 24 hours. She is still confused. But she is not agitated or anxious like yesterday. Afebrile. All the workup so far is negative. 07/20/2018-patient was confused and agitated yesterday evening may have a own syndrome. She was given metoprolol IV 1 dose last night because of the high blood pressure. Patient is afebrile. Patient is calm and comfortable in the bed. Still confused. may be She has dementia. Reason For Visit: ALTERED MENTAL STATUS Physical Exam Vital Signs: Temp Pulse Resp BP Pulse Ox 97.8 F 60 16 178/75 H 95 07/20/18 03:18 07/20/18 07:00 07/20/18 03:18 07/20/18 03:18 07/20/18 03:18 Intake & Output 07/19/18 07/20/18 07/21/18 06:59 06:59 06:59 Intake Total 948 Balance 948 Weight 68.4 kg 70.5 kg General appearance: PRESENT: no acute distress Head exam: PRESENT: atraumatic Eye exam: PRESENT: PERRLA Mouth exam: PRESENT: moist Neck exam: ABSENT: carotid bruit, JVD, lymphadenopathy, thyromegaly Respiratory exam: PRESENT: clear to auscultation marija. ABSENT: rales, rhonchi, wheezes Cardiovascular exam: PRESENT: RRR. ABSENT: diastolic murmur, rubs, systolic murmur GI/Abdominal exam: PRESENT: normal bowel sounds, soft. ABSENT: distended, guarding, mass, organolmegaly, rebound, tenderness Extremities exam: PRESENT: full ROM. ABSENT: calf tenderness, clubbing, pedal edema Neurological exam: PRESENT: alert, awake, CN II-XII grossly intact. ABSENT: oriented to person, oriented to place, oriented to time, oriented to situation Psychiatric exam: PRESENT: anxious Results Laboratory Results: 07/19/18 05:10 07/19/18 05:10 07/18/18 14:00 Catheterized Urine Urine Culture - Final NO GROWTH 2 DAYS 07/18/18 07/18/18 07/18/18 11:25 11:25 19:58 Creatine Kinase 663 H 466 H CK-MB (CK-2) 13.20 H Troponin I 0.038 NT-Pro-B Natriuret Pep 07/19/18 05:10 Creatine Kinase CK-MB (CK-2) Troponin I NT-Pro-B Natriuret Pep 3540 H Impressions: Head MRI 07/18/18 00:00 IMPRESSION: Limited due to extensive motion however no convincing evidence for an acute intracranial abnormality. 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 copyright 2011 [employer]- All Rights Reserved Chest X-Ray 07/18/18 10:37 IMPRESSION: Cardiomegaly without acute abnormality of the lungs in AP projection. Head CT 07/18/18 10:37 IMPRESSION: No acute findings. 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 EVIDENCE OF ACUTE STROKE: NO. Carotid Doppler Study 07/19/18 00:00 IMPRESSION: NO HEMODYNAMICALLY SIGNIFICANT STENOSIS. Assessment & Plan - Diagnosis (1) Altered mental status Qualifiers: Altered mental status type: unspecified Qualified Code(s): R41.82 - Altered mental status, unspecified Is this a current diagnosis for this admission?: Yes Plan: 07/18/2018-plan for the altered mental status he is to put her on I am ICU she is a full code aspiration, fall, seizure precautions were requested. MRI of the brain without contrast was requested. Neurochecks were requested. Patient was placed on Ativan 0.5 mg IV every 4-6 as needed for agitation. PT consult manager social work consult was requested. Altered mental status probably secondary to nonspecific causes. Elizondo's catheter was placed heart rate on IV fluids normal saline at 50 cc/h carotid Doppler was requested. Patient was placed on bedrest. pt is a full code. 07/19/2018 altered mental status/encephalopathy due to unknown etiology. CT head was negative MRI of the brain was negative carotid Doppler was negative and the blood work came back negative so far. Neurochecks are negative. Skull therapy consult was requested probably patient may need to go to a rehab facility. 07/20/2018 altered mental status/encephalopathy due to unknown etiology probably she has underlying dementia. Started on memantine 5 mg p.o. twice daily today. Patient is still confused and agitated. Probably is safe for her to go to [place] assisted living or nursing home facility. (2) Hypokalemia Is this a current diagnosis for this admission?: Yes Plan: 07/18/2018-potassium level is 3.3. Managed to give 40 mg of potassium liquid p.o. 8 x 1 dose. Planning to do the follow-up chemistry tomorrow. 07/19/2018-potassium level is 3.6 today. Hypokalemia is resolved with potassium supplementation. 07/20/2018 potassium is 3.6. Hypokalemia is resolved. (3) Chronic kidney disease (CKD) Is this a current diagnosis for this admission?: Yes Plan: 07/18/2018 admission creatinine is 1.88 previous creatinine 2 months ago was 1.57. Acute on chronic renal insufficiency probably secondary to prerenal status. She was started on IV fluids normal saline at 50 cc/h. 07/19/2018 admission creatinine is 1.88 and it came down to 1.37 today. Acute kidney injury is resolving. -patient admission creatinine is 1.88 improved to 1.39 with IV fluids. Acute kidney injury is resolving. (4) Hypertension Is this a current diagnosis for this admission?: Yes Plan: 07/18/2018-patient blood pressure is 185/72. Patient is on blood pressure medications at home we do not have that information. Started on lisinopril 10 mg p.o. daily amlodipine 5 mg p.o. daily. wiill do daily measurements of the blood pressures. 07/19/2018-blood pressure today is 182/73. Patient is presently on amlodipine 2.5 mg p.o. daily, lisinopril 10 mg p.o. daily, metoprolol 12.5 mg p.o. twice daily. IV fluids discontinued today. Amlodipine was discontinued patient was put back on nifedipine 60 mg p.o. twice a day. 07/20/2018 blood pressure today is 178/75. She is on lisinopril 10 mg daily nifedipine 60 mg p.o. twice daily. I increased the lisinopril to 40 mg p.o. daily. Going to close Franck monitor the blood pressure measurements. She is also on metoprolol 100 mg p.o. daily. (5) Rhabdomyolysis Is this a current diagnosis for this admission?: Yes Plan: 07/18/2018 admission CPK level is a 661. Elevated CPK levels probably secondary to history of falls. Started on IV fluids normal saline 50 cc/h we going to do the follow-up CPK levels. 07/19/2018-CPK level is 661 on admission probably secondary to falls. With IV fluids CPK levels came down to 466. 06/19/2019 initial CK levels are 661 with IV fluids improved to 466 rhabdomyolysis secondary to falls is resolving. (6) Smoker Is this a current diagnosis for this admission?: Yes Plan: 07/19/2018-patient is a chronic smoker she was placed on nicotine patch daily. Smoking counseling was provided for more than 10 minutes. (7) Dementia Is this a current diagnosis for this admission?: Yes Plan: 07/20/2018-patient may have dementia it may explain the confusion and agitation. She was started on memantine 5 mg p.o. twice daily today. Is to continue the present management. - Time Time Spent with patient: 15-24 minutes Smoking Cessation Education: over 10 minutes Medications reviewed and adjusted accordingly: Yes Anticipated discharge: SNF
[2018-07-20] MEDS: MEMANTINE HCL 10 MG TABLET PO SCH (21:24)
[2018-07-20] MEDS: FAMOTIDINE 20 MG TABLET PO SCH (21:25)
[2018-07-21 06:39] LABS: ABSOLUTE BASOPHILS # (AUTO) 0.1 10^3/uL (0.0-0.2); ABSOLUTE EOSINOPHILS # (AUTO) 0.2 10^3/uL (0.0-0.6); ABSOLUTE MONOCYTES (AUTO) 0.8 10^3/uL (0.1-1.4); ABSOLUTE NEUT (AUTO) 7.4 10^3/uL (1.7-8.2); BASOPHILS % (AUTO) 0.5 % (0-2); EOSINOPHILS % (AUTO) 1.9 % (0-6); HEMATOCRIT 34.3 % (36.0-47.0); HEMOGLOBIN 11.8 g/dL (12.0-15.5); LYMPHOCYTES % (AUTO) 18.9 % (13-45); MEAN CORPUSCULAR HEMOGLOBIN 27.4 pg (27.0-33.4); MEAN CORPUSCULAR HGB CONC 34.4 g/dL (32.0-36.0); MEAN CORPUSCULAR VOLUME 80 fl (80-97); PLATELET COUNT 203 10^3/uL (150-450); RED BLOOD COUNT 4.31 10^6/uL (3.72-5.28); RED CELL DISTRIBUTION WIDTH 15.9 % (11.5-14.0); SEGMENTED NEUTROPHILS % (AUTO) 70.7 % (42-78); TOTAL CELLS COUNTED % (AUTO) 100 %; WHITE BLOOD COUNT 10.5 10^3/uL (4.0-10.5)
[2018-07-21 06:59] LABS: ALANINE AMINOTRANSFERASE 23 U/L (9-52); ALBUMIN 3.1 g/dL (3.5-5.0); ALKALINE PHOSPHATASE 71 U/L (38-126); ANION GAP 6 (5-19); ASPARTATE AMINO TRANSFERASE 18 U/L (14-36); BILIRUBIN,DIRECT 0.2 mg/dL (0.0-0.4); BILIRUBIN,TOTAL 0.9 mg/dL (0.2-1.3); BLOOD UREA NITROGEN 22 mg/dL (7-20); CALCIUM 8.5 mg/dL (8.4-10.2); CARBON DIOXIDE 28 mmol/L (22-30); CHLORIDE 107 mmol/L (98-107); GLUCOSE 114 mg/dL (75-110); POTASSIUM 3.1 mmol/L (3.6-5.0); SODIUM 140.9 mmol/L (137-145); TOTAL PROTEIN 5.8 g/dL (6.3-8.2)
[2018-07-21] MEDS: METOPROLOL SUCCINATE 50 MG TAB.SR.24H PO SCH (09:50)
[2018-07-21] MEDS: DOCUSATE SODIUM 100 MG CAPSULE PO SCH ×2 (09:50→17:37)
[2018-07-21] MEDS: MEMANTINE HCL 10 MG TABLET PO SCH ×2 (09:50→21:15)
[2018-07-21] MEDS: NIFEDIPINE 30 MG TAB.ER.24 PO SCH ×2 (09:50→21:15)
[2018-07-21] MEDS: ENOXAPARIN SODIUM INJ 30 MG/0.3 ML DISP.SYRIN SUBCUT SCH (09:51)
[2018-07-21] MEDS: FAMOTIDINE 20 MG TABLET PO SCH ×2 (09:51→21:15)
[2018-07-21] MEDS: LISINOPRIL 10 MG TABLET PO SCH (09:51)
--- NOTE | 2018-07-21 11:47 | PDOC PROGRESS REPORT ---
Subjective Progress Note for:: 07/21/18 Subjective:: 07/18/[id number]-eohn-old female with history of hypertension brought to the emergency room by the family members with complaints of change in mental status. She was seen last Wednesday with normal behavior and stepdaughter went to see the pt today and noticed the blinds are not open, she felt something is wrong she opened the dooe went into the house immediately stepped onto a pool of water , started calling her mom come to out of the restroom and found her mom at the doorstep of the bedroom with pants down and not properly wearing the clothes when questioned what happened , patient stating blankly at her, looking confused and agitated. So the stepdaughter called for help and during that time patient fell one time without injuring herself. And the family members also noticed patient is unable to following the instructions. They took the patient stepdaughters home and still found to be confused and agitated also. Did not notice any nausea vomiting diarrhea . No fever cough cold was reported. Appetite was poor. because of the confusion and agitation and anxiety family brought her to the emergency room for further evaluation. By the time i went to see the patient patient was in ER, mittens were placed because pt is pulled out the nasal cannula pulled out the IV lines so as a preventive measure hands are covered with mittens. Patient is unable to give a history at all except for laughing. Stepdaughter able to provide the information of what exactly happened. CT head was negative during the ER evaluation. Chest x-ray was also negative. Urine drug screen was negative. Patient lives alone family is requesting for placement. 07/19/2018 no acute events in the last 24 hours. She is still confused. But she is not agitated or anxious like yesterday. Afebrile. All the workup so far is negative. 07/20/2018-patient was confused and agitated yesterday evening may have a sundown syndrome. She was given metoprolol IV 1 dose last night because of the high blood pressure. Patient is afebrile. Patient is calm and comfortable in the bed. Still confused. may be She has dementia. 07/21/2018-she is comfortable in the sleeping in the bed not in distress. I discussed the plan of care with the nurse Mimi, no acute events in the last 24 hours. Patient able to feed herself. Patient was admitted with altered mental status stroke was ruled out. Altered mental status/encephalopathy probably secondary to advanced dementia. Reason For Visit: ALTERED MENTAL STATUS Physical Exam Vital Signs: Temp Pulse Resp BP Pulse Ox 99.9 F 77 16 158/75 H 96 07/21/18 07:20 07/21/18 07:20 07/21/18 07:20 07/21/18 07:20 07/21/18 07:20 Intake & Output 07/20/18 07/21/18 07/22/18 06:59 06:59 06:59 Intake Total 948 887 Balance 948 887 Weight 70.5 kg 69.8 kg General appearance: PRESENT: no acute distress Eye exam: PRESENT: PERRLA Mouth exam: PRESENT: moist Neck exam: ABSENT: carotid bruit, JVD, lymphadenopathy, thyromegaly Respiratory exam: PRESENT: clear to auscultation marija. ABSENT: rales, rhonchi, wheezes Pulses: PRESENT: normal dorsalis pedis pul GI/Abdominal exam: PRESENT: normal bowel sounds, soft. ABSENT: distended, g uarding, mass, organolmegaly, rebound, tenderness Extremities exam: PRESENT: full ROM. ABSENT: calf tenderness, clubbing, pedal edema Neurological exam: PRESENT: alert, awake, oriented to person, oriented to place, oriented to time, oriented to situation, CN II-XII grossly intact. ABSENT: motor sensory deficit Psychiatric exam: PRESENT: appropriate affect, normal mood. ABSENT: homicidal ideation, suicidal ideation Results Laboratory Results: 07/21/18 05:31 07/21/18 05:31 07/21/18 07/21/18 05:31 05:31 WBC 10.5 RBC 4.31 Hgb 11.8 L Hct 34.3 L MCV 80 MCH 27.4 MCHC 34.4 RDW 15.9 H Plt Count 203 Seg Neutrophils % 70.7 Lymphocytes % 18.9 Monocytes % 8.0 Eosinophils % 1.9 Basophils % 0.5 Absolute Neutrophils 7.4 Absolute Lymphocytes 2.0 Absolute Monocytes 0.8 Absolute Eosinophils 0.2 Absolute Basophils 0.1 Sodium 140.9 Potassium 3.1 L Chloride 107 Carbon Dioxide 28 Anion Gap 6 BUN 22 H Creatinine 1.02 Est GFR ( Amer) > 60 Est GFR (Non-Af Amer) 52 L Glucose 114 H Calcium 8.5 Magnesium 1.8 Total Bilirubin 0.9 AST 18 ALT 23 Alkaline Phosphatase 71 Total Protein 5.8 L Albumin 3.1 L 07/18/18 14:00 Catheterized Urine Urine Culture - Final NO GROWTH 2 DAYS 07/18/18 07/18/18 07/18/18 11:25 11:25 19:58 Creatine Kinase 663 H 466 H CK-MB (CK-2) 13.20 H Troponin I 0.038 NT-Pro-B Natriuret Pep 07/19/18 05:10 Creatine Kinase CK-MB (CK-2) Troponin I NT-Pro-B Natriuret Pep 3540 H Impressions: Head MRI 07/18/18 00:00 IMPRESSION: Limited due to extensive motion however no convincing evidence for an acute intracranial abnormality. 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 copyright 2010 [employer]- All Rights Reserved Chest X-Ray 07/18/18 10:37 IMPRESSION: Cardiomegaly without acute abnormality of the lungs in AP projection. Head CT 07/18/18 10:37 IMPRESSION: No acute findings. 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 EVIDENCE OF ACUTE STROKE: NO. Carotid Doppler Study 07/19/18 00:00 IMPRESSION: NO HEMODYNAMICALLY SIGNIFICANT STENOSIS. Assessment & Plan - Diagnosis (1) Altered mental status Qualifiers: Altered mental status type: unspecified Qualified Code(s): R41.82 - Altered mental status, unspecified Is this a current diagnosis for this admission?: Yes Plan: 07/18/2018-plan for the altered mental status he is to put her on I am ICU she is a full code aspiration, fall, seizure precautions were requested. MRI of the brain without contrast was requested. Neurochecks were requested. Patient was placed on Ativan 0.5 mg IV every 4-6 as needed for agitation. PT consult manager social work consult was requested. Altered mental status probably secondary to nonspecific causes. Elizondo's catheter was placed heart rate on IV fluids normal saline at 50 cc/h carotid Doppler was requested. Patient was placed on bedrest. pt is a full code. 07/19/2018 altered mental status/encephalopathy due to unknown etiology. CT head was negative MRI of the brain was negative carotid Doppler was negative and the blood work came back negative so far. Neurochecks are negative. Skull therapy consult was requested probably patient may need to go to a rehab facility. 07/20/2018 altered mental status/encephalopathy due to unknown etiology probably she has underlying dementia. Started on memantine 5 mg p.o. twice daily today. Patient is still confused and agitated. Probably is safe for her to go to [place] assisted living or care home facility. 07/21/2018-patient was admitted with altered mental status confusion/ encephalopathy most likely secondary to advanced dementia. Patient was started on memantine 5 mg p.o. twice a day. Patient is comfortably sleeping in the bed today. No complaints of anxiety or agitation. Patient was able to feed herself. plan is to place the pt in exterminator facility. (2) Hypokalemia Is this a current diagnosis for this admission?: Yes Plan: 07/18/2018-potassium level is 3.3. Managed to give 40 mg of potassium liquid p.o. 8 x 1 dose. Planning to do the follow-up chemistry tomorrow. 07/19/2018-potassium level is 3.6 today. Hypokalemia is resolved with potassium supplementation. 07/20/2018 potassium is 3.6. Hypokalemia is resolved. 07/21/2018-patient admitted with potassium level of 3.3. With initial potassium supplementation hypokalemia resolved. Today's potassium again is 3.1, started on potassium chloride 40 mg p.o. daily. plan is to check the chemistry again tomorrow. (3) Chronic kidney disease (CKD) Is this a current diagnosis for this admission?: Yes Plan: 07/18/2018 admission creatinine is 1.88 previous creatinine 2 months ago was 1.57. Acute on chronic renal insufficiency probably secondary to prerenal status. She was started on IV fluids normal saline at 50 cc/h. 07/19/2018 admission creatinine is 1.88 and it came down to 1.37 today. Acute kidney injury is resolving. -patient admission creatinine is 1.88 improved to 1.39 with IV fluids. Acute kidney injury is resolving. 07/21/2018 creatinine at the time of admission is 1.8 height it was improved to 1.02 today with IV fluids acute kidney injury probably prerenal is resolved. (4) Hypertension Is this a current diagnosis for this admission?: Yes Plan: 07/18/2018-patient blood pressure is 185/72. Patient is on blood pressure medications at home we do not have that information. Started on lisinopril 10 mg p.o. daily amlodipine 5 mg p.o. daily. wiill do daily measurements of the blood pressures. 07/19/2018-blood pressure today is 182/73. Patient is presently on amlodipine 2.5 mg p.o. daily, lisinopril 10 mg p.o. daily, metoprolol 12.5 mg p.o. twice daily. IV fluids discontinued today. Amlodipine was discontinued patient was put back on nifedipine 60 mg p.o. twice a day. 07/20/2018 blood pressure today is 178/75. She is on lisinopril 10 mg daily nifedipine 60 mg p.o. twice daily. I increased the lisinopril to 40 mg p.o. daily. Going to close Franck monitor the blood pressure measurements. She is also on metoprolol 100 mg p.o. daily. 07/21/2018-blood pressure today is 158/75 improved compared to yesterday. Patient is presently on lisinopril 40 mg p.o. daily, nifedipine 60 mg p.o. twice a day, plan 100 mg p.o. daily. Plan is to continue the present management. BNP was elevated at 3450, to start on Lasix 20 mg p.o. daily. (5) Rhabdomyolysis Is this a current diagnosis for this admission?: Yes Plan: 07/18/2018 admission CPK level is a 661. Elevated CPK levels probably secondary to history of falls. Started on IV fluids normal saline 50 cc/h we going to do the follow-up CPK levels. 07/19/2018-CPK level is 661 on admission probably secondary to falls. With IV fluids CPK levels came down to 466. 06/19/2019 initial CK levels are 661 with IV fluids improved to 466 rhabdomyolysis secondary to falls is resolving. 07/21/2017 CK levels at the time of admission 661 probably secondary to falls. With IV fluids CPK levels came down to 466. Plan is to recheck the CK levels again tomorrow. (6) Smoker Is this a current diagnosis for this admission?: Yes Plan: 07/19/2018-patient is a chronic smoker she was placed on nicotine patch daily. Smoking counseling was provided for more than 10 minutes. 07/21/2018 patient is a chronic smoker she is receiving nicotine patch daily. (7) Dementia Is this a current diagnosis for this admission?: Yes Plan: 07/20/2018-patient may have dementia it may explain the confusion and agitation. She was started on memantine 5 mg p.o. twice daily today. Is to continue the present management. 07/21/2018-patient probably has advanced dementia contributing to altered mental status/encephalopathy. - Time Time Spent with patient: 15-24 minutes Medications reviewed and adjusted accordingly: Yes Anticipated discharge: SNF
[2018-07-21] MEDS: POTASSIUM CHLORIDE 20 MEQ/15 ML UDCUP PO SCH (12:53)
[2018-07-21] MEDS: FUROSEMIDE 20 MG TABLET PO SCH (12:53)
[2018-07-22] MEDS: FUROSEMIDE 20 MG TABLET PO SCH (09:04)
[2018-07-22] MEDS: LISINOPRIL 10 MG TABLET PO SCH (09:04)
[2018-07-22] MEDS: NIFEDIPINE 30 MG TAB.ER.24 PO SCH ×2 (09:05→22:09)
[2018-07-22] MEDS: ENOXAPARIN SODIUM INJ 30 MG/0.3 ML DISP.SYRIN SUBCUT SCH (09:08)
[2018-07-22] MEDS: MEMANTINE HCL 10 MG TABLET PO SCH ×3 (09:08→22:10)
[2018-07-22] MEDS: DOCUSATE SODIUM 100 MG CAPSULE PO SCH ×3 (09:08→17:19)
[2018-07-22] MEDS: POTASSIUM CHLORIDE 20 MEQ/15 ML UDCUP PO SCH (09:08)
[2018-07-22] MEDS: FAMOTIDINE 20 MG TABLET PO SCH ×3 (09:08→22:10)
--- NOTE | 2018-07-22 11:18 | PDOC PROGRESS REPORT ---
Subjective Progress Note for:: 07/22/18 Subjective:: 07/18/[id number]-qyxd-old female with history of hypertension brought to the emergency room by the family members with complaints of change in mental status. She was seen last Wednesday with normal behavior and stepdaughter went to see the pt today and noticed the blinds are not open, she felt something is wrong she opened the dooe went into the house immediately stepped onto a pool of water , started calling her mom come to out of the restroom and found her mom at the doorstep of the bedroom with pants down and not properly wearing the clothes when questioned what happened , patient stating blankly at her, looking confused and agitated. So the stepdaughter called for help and during that time patient fell one time without injuring herself. And the family members also noticed patient is unable to following the instructions. They took the patient stepdaughters home and still found to be confused and agitated also. Did not notice any nausea vomiting diarrhea . No fever cough cold was reported. Appetite was poor. because of the confusion and agitation and anxiety family brought her to the emergency room for further evaluation. By the time i went to see the patient patient was in ER, mittens were placed because pt is pulled out the nasal cannula pulled out the IV lines so as a preventive measure hands are covered with mittens. Patient is unable to give a history at all except for laughing. Stepdaughter able to provide the information of what exactly happened. CT head was negative during the ER evaluation. Chest x-ray was also negative. Urine drug screen was negative. Patient lives alone family is requesting for placement. 07/19/2018 no acute events in the last 24 hours. She is still confused. But she is not agitated or anxious like yesterday. Afebrile. All the workup so far is negative. 07/20/2018-patient was confused and agitated yesterday evening may have a sundown syndrome. She was given metoprolol IV 1 dose last night because of the high blood pressure. Patient is afebrile. Patient is calm and comfortable in the bed. Still confused. may be She has dementia. 07/21/2018-she is comfortable in the sleeping in the bed not in distress. I discussed the plan of care with the nurse Mimi, no acute events in the last 24 hours. Patient able to feed herself. Patient was admitted with altered mental status stroke was ruled out. Altered mental status/encephalopathy probably secondary to advanced dementia. 07/22/2018 patient is comfortably sleeping in the bed not in distress. Patient potassium is 3.1 today she is on 40 mg p.o. potassium for the nurse told me patient is not taking it. Be going to give a K rider IV today. Blood pressure is 90/74 patient is asymptomatic as per the nurse. Waiting for approval from [facility] for placement. Patient is afebrile. No acute events in the last 24 hours. Reason For Visit: ALTERED MENTAL STATUS Physical Exam Vital Signs: Temp Pulse Resp BP Pulse Ox 98.8 F 73 18 90/74 L 96 07/22/18 07:19 07/22/18 07:19 07/22/18 07:19 07/22/18 07:19 07/22/18 07:19 Intake & Output 07/21/18 07/22/18 07/23/18 06:59 06:59 06:59 Intake Total 887 565 Balance 887 565 Weight 69.8 kg 69.5 kg General appearance: PRESENT: no acute distress Head exam: PRESENT: atraumatic Eye exam: PRESENT: PERRLA Neck exam: ABSENT: carotid bruit, JVD, lymphadenopathy, thyromegaly Respiratory exam: PRESENT: clear to auscultation marija. ABSENT: rales, rhonchi, wheezes Cardiovascular exam: PRESENT: systolic murmur GI/Abdominal exam: PRESENT: normal bowel sounds, soft. ABSENT: distended, guarding, mass, organolmegaly, rebound, tenderness Extremities exam: PRESENT: full ROM. ABSENT: calf tenderness, clubbing, pedal edema Neurological exam: PRESENT: alert, awake, oriented to person, oriented to place, oriented to time, oriented to situation, CN II-XII grossly intact. ABSENT: motor sensory deficit Psychiatric exam: PRESENT: anxious Results Laboratory Results: 07/21/18 05:31 07/21/18 05:31 07/18/18 07/18/18 07/18/18 11:25 11:25 19:58 Creatine Kinase 663 H 466 H CK-MB (CK-2) 13.20 H Troponin I 0.038 NT-Pro-B Natriuret Pep 01/22/19 01/25/19 05:10 05:19 Creatine Kinase 64 CK-MB (CK-2) Troponin I NT-Pro-B Natriuret Pep 3540 H Impressions: Head MRI 07/18/18 00:00 IMPRESSION: Limited due to extensive motion however no convincing evidence for an acute intracranial abnormality. 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 copyright 2010 [employer]- All Rights Reserved Chest X-Ray 07/18/18 10:37 IMPRESSION: Cardiomegaly without acute abnormality of the lungs in AP projection. Head CT 07/18/18 10:37 IMPRESSION: No acute findings. 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 EVIDENCE OF ACUTE STROKE: NO. Carotid Doppler Study 07/19/18 00:00 IMPRESSION: NO HEMODYNAMICALLY SIGNIFICANT STENOSIS. Assessment & Plan - Diagnosis (1) Altered mental status Qualifiers: Altered mental status type: unspecified Qualified Code(s): R41.82 - Altered mental status, unspecified Is this a current diagnosis for this admission?: Yes Plan: 07/18/2018-plan for the altered mental status he is to put her on I am ICU she is a full code aspiration, fall, seizure precautions were requested. MRI of the brain without contrast was requested. Neurochecks were requested. Patient was placed on Ativan 0.5 mg IV every 4-6 as needed for agitation. PT consult social science teacher consult was requested. Altered mental status probably secondary to nonspecific causes. Elizondo's catheter was placed heart rate on IV fluids normal saline at 50 cc/h carotid Doppler was requested. Patient was placed on bedrest. pt is a full code. 07/19/2018 altered mental status/encephalopathy due to unknown etiology. CT head was negative MRI of the brain was negative carotid Doppler was negative and the blood work came back negative so far. Neurochecks are negative. Skull therapy consult was requested probably patient may need to go to a rehab facility. 07/20/2018 altered mental status/encephalopathy due to unknown etiology probably she has underlying dementia. Started on memantine 5 mg p.o. twice daily today. Patient is still confused and agitated. Probably is safe for her to go to [place] assisted living or residential facility. 07/21/2018-patient was admitted with altered mental status confusion/ encephalopathy most likely secondary to advanced dementia. Patient was started on memantine 5 mg p.o. twice a day. Patient is comfortably sleeping in the bed today. No complaints of anxiety or agitation. Patient was able to feed herself. plan is to place the pt in detention facility. 07/22/2018-patient is admitted with altered mental status/encephalopathy. In my opinion most likely secondary to underlying advanced dementia. As I mentioned above patient is on memantine 5 mg p.o. twice a day. Waiting for a [employer] approval for placement. (2) Hypokalemia Is this a current diagnosis for this admission?: Yes Plan: 07/18/2018-potassium level is 3.3. Managed to give 40 mg of potassium liquid p.o. 8 x 1 dose. Planning to do the follow-up chemistry tomorrow. 07/19/2018-potassium level is 3.6 today. Hypokalemia is resolved with potassium supplementation. 07/20/2018 potassium is 3.6. Hypokalemia is resolved. 07/21/2018-patient admitted with potassium level of 3.3. With initial potassium supplementation hypokalemia resolved. Today's potassium again is 3.1, started on potassium chloride 40 mg p.o. daily. plan is to check the chemistry again tomorrow. 2018-patient potassium level is 3.1 today. She is on p.o. potassium supplementation but refusing the medication. Plan to give K rider 40 mEq today. To Recheck the labs tomorrow morning. (3) Chronic kidney disease (CKD) Is this a current diagnosis for this admission?: Yes Plan: 07/18/2018 admission creatinine is 1.88 previous creatinine 2 months ago was 1.57. Acute on chronic renal insufficiency probably secondary to prerenal status. She was started on IV fluids normal saline at 50 cc/h. 07/19/2018 admission creatinine is 1.88 and it came down to 1.37 today. Acute ki dney injury is resolving. -patient admission creatinine is 1.88 improved to 1.39 with IV fluids. Acute kidney injury is resolving. 07/21/2018 creatinine at the time of admission is 1.88 it was improved to 1.02 today with IV fluids acute kidney injury probably prerenal is resolved. 07/22/2018-patient admission creatinine is 1.88. Today's labs indicate creatinine is 1.02. Acute kidney injury probably prerenal is resolved. Patient is off the IV fluids right now. (4) Hypertension Is this a current diagnosis for this admission?: Yes Plan: 07/18/2018-patient blood pressure is 185/72. Patient is on blood pressure med ications at home we do not have that information. Started on lisinopril 10 mg p.o. daily amlodipine 5 mg p.o. daily. wiill do daily measurements of the blood pressures. 07/19/2018-blood pressure today is 182/73. Patient is presently on amlodipine 2.5 mg p.o. daily, lisinopril 10 mg p.o. daily, metoprolol 12.5 mg p.o. twice daily. IV fluids discontinued today. Amlodipine was discontinued patient was put back on nifedipine 60 mg p.o. twice a day. 07/20/2018 blood pressure today is 178/75. She is on lisinopril 10 mg daily nifedipine 60 mg p.o. twice daily. I increased the lisinopril to 40 mg p.o. daily. Going to close Franck monitor the blood pressure measurements. She is also on metoprolol 100 mg p.o. daily. 07/21/2018-blood pressure today is 158/75 improved compared to yesterday. P margaux is presently on lisinopril 40 mg p.o. daily, nifedipine 60 mg p.o. twice a day, plan 100 mg p.o. daily. Plan is to continue the present management. BNP was elevated at 3450, to start on Lasix 20 mg p.o. daily. 07/22/2018-blood pressure today is 90/74. I requested the nurse to check the man ual blood pressure. Usually blood pressures are relatively high. If the blood pressure is low then will hold her blood pressure medications for today. (5) Rhabdomyolysis Is this a current diagnosis for this admission?: Yes Plan: 07/18/2018 admission CPK level is a 661. Elevated CPK levels probably secondary to history of falls. Started on IV fluids normal saline 50 cc/h we going to do the follow-up CPK levels. 07/19/2018-CPK level is 661 on admission probably secondary to falls. With IV fluids CPK levels came down to 466. 06/19/2019 initial CK levels are 661 with IV fluids improved to 466 rhabdomyolysis secondary to falls is resolving. 07/21/2018- CK levels at the time of admission 661 probably secondary to falls. With IV fluids CPK levels came down to 466. Plan is to recheck the CK levels again tomorrow. 07/22/2018-CK level at the time of admission is 661, improved to 26 for today. rhabdomyolysis is probably secondary to multiple falls at home. (6) Smoker Is this a current diagnosis for this admission?: Yes Plan: 07/19/2018-patient is a chronic smoker she was placed on nicotine patch daily. Smoking counseling was provided for more than 10 minutes. 07/21/2018 patient is a chronic smoker she is receiving nicotine patch daily. 07/22/2018-patient is a chronic smoker, presently she is on nicotine patch. (7) Dementia Is this a current diagnosis for this admission?: Yes Plan: 07/20/2018-patient may have dementia it may explain the confusion and agitation. She was started on memantine 5 mg p.o. twice daily today. Is to continue the present management. 07/21/2018-patient probably has advanced dementia contributing to altered mental status/encephalopathy. 07/22/2018-patient has advanced dementia on memantine 5 mg p.o. twice daily plan is to continue the present management. - Time Time Spent with patient: 15-24 minutes Medications reviewed and adjusted accordingly: Yes Anticipated discharge: SNF
[2018-07-22] MEDS: METOPROLOL SUCCINATE 50 MG TAB.SR.24H PO SCH (12:00)
[2018-07-22] MEDS: POTASSI CL 20 MEQ/50 ML RIDER 20 MEQ/50 ML RTUPB IV SCH ×4 (12:18→20:06)
[2018-07-22] MEDS ORDERED: POTASSIUM CHLORIDE 10 MEQ CAPSULE.ER PO SCH (22:00)
[2018-07-23 06:32] LABS: ABSOLUTE BASOPHILS # (AUTO) 0.1 10^3/uL (0.0-0.2); ABSOLUTE EOSINOPHILS # (AUTO) 0.1 10^3/uL (0.0-0.6); ABSOLUTE LYMPHOCYTES (AUTO) 1.8 10^3/uL (0.5-4.7); ABSOLUTE NEUT (AUTO) 8.3 10^3/uL (1.7-8.2); BASOPHILS % (AUTO) 0.6 % (0-2); EOSINOPHILS % (AUTO) 1.2 % (0-6); HEMATOCRIT 32.8 % (36.0-47.0); LYMPHOCYTES % (AUTO) 15.7 % (13-45); MEAN CORPUSCULAR HGB CONC 33.6 g/dL (32.0-36.0); MEAN CORPUSCULAR VOLUME 80 fl (80-97); MONOCYTES % (AUTO) 8.6 % (3-13); PLATELET COUNT 176 10^3/uL (150-450); RED BLOOD COUNT 4.08 10^6/uL (3.72-5.28); SEGMENTED NEUTROPHILS % (AUTO) 73.9 % (42-78); TOTAL CELLS COUNTED % (AUTO) 100 %; WHITE BLOOD COUNT 11.2 10^3/uL (4.0-10.5)
[2018-07-23 06:58] LABS: ALANINE AMINOTRANSFERASE 19 U/L (9-52); ALBUMIN 2.9 g/dL (3.5-5.0); ALKALINE PHOSPHATASE 68 U/L (38-126); ANION GAP 6 (5-19); ASPARTATE AMINO TRANSFERASE 14 U/L (14-36); BILIRUBIN,DIRECT 0.2 mg/dL (0.0-0.4); BILIRUBIN,TOTAL 0.7 mg/dL (0.2-1.3); BLOOD UREA NITROGEN 21 mg/dL (7-20); CALCIUM 8.4 mg/dL (8.4-10.2); CARBON DIOXIDE 24 mmol/L (22-30); CHLORIDE 111 mmol/L (98-107); GLUCOSE 104 mg/dL (75-110); SODIUM 141.2 mmol/L (137-145); TOTAL PROTEIN 5.7 g/dL (6.3-8.2)
--- NOTE | 2018-07-23 11:02 | PDOC PROGRESS REPORT ---
Subjective Progress Note for:: 07/23/18 Subjective:: [birth year][id number]-old female with history of hypertension brought to the emergency room by the family members with complaints of change in mental status. She was seen last Wednesday with normal behavior and stepdaughter went to see the pt today and noticed the blinds are not open, she felt something is wrong she opened the dooe went into the house immediately stepped onto a pool of water , started calling her mom come to out of the restroom and found her mom at the doorstep of the bedroom with pants down and not properly wearing the clothes when questioned what happened , patient stating blankly at her, looking confused and agitated. So the stepdaughter called for help and during that time patient fell one time without injuring herself. And the family members also noticed patient is unable to following the instructions. They took the patient stepdaughters home and still found to be confused and agitated also. Did not notice any nausea vomiting diarrhea . No fever cough cold was reported. Appetite was poor. because of the confusion and agitation and anxiety family brought her to the emergency room for further evaluation. By the time i went to see the patient patient was in ER, mittens were placed because pt is pulled out the nasal cannula pulled out the IV lines so as a preventive measure hands are covered with mittens. Patient is unable to give a history at all except for laughing. Stepdaughter able to provide the information of what exactly happened. CT head was negative during the ER evaluation. Chest x-ray was also negative. Urine drug screen was negative. Patient lives alone family is requesting for placement. 07/19/2018 no acute events in the last 24 hours. She is still confused. But she is not agitated or anxious like yesterday. Afebrile. All the workup so far is negative. 07/20/2018-patient was confused and agitated yesterday evening may have a sundown syndrome. She was given metoprolol IV 1 dose last night because of the high blood pressure. Patient is afebrile. Patient is calm and comfortable in the bed. Still confused. may be She has dementia. 07/21/2018-she is comfortable in the sleeping in the bed not in distress. I discussed the plan of care with the nurse Mimi, no acute events in the last 24 hours. Patient able to feed herself. Patient was admitted with altered mental status stroke was ruled out. Altered mental status/encephalopathy probably secondary to advanced dementia. 07/22/2018 patient is comfortably sleeping in the bed not in distress. Patient potassium is 3.1 today she is on 40 mg p.o. potassium for the nurse told me patient is not taking it. Be going to give a K rider IV today. Blood pressure is 90/74 patient is asymptomatic as per the nurse. Waiting for approval from [facility] for placement. Patient is afebrile. No acute events in the last 24 hours. 07/23/2018 comfortably sleeping in the bed I spoke to the nurse Lisseth gillette, according to her patient is refusing to take her medications since yesterday. She has a low-grade fever in the last 24 hours T-max is 99.3. No acute events in the last 24 hours. Awaiting placement. Reason For Visit: ALTERED MENTAL STATUS Physical Exam Vital Signs: Temp Pulse Resp BP Pulse Ox 99.5 F 74 20 148/59 H 92 07/23/18 04:00 07/23/18 07:00 07/23/18 04:00 07/23/18 04:00 07/23/18 04:00 Intake & Output 07/22/18 07/23/18 07/24/18 06:59 06:59 06:59 Intake Total 565 250 Balance 565 250 Weight 69.5 kg 70.9 kg General appearance: PRESENT: no acute distress Head exam: PRESENT: atraumatic Eye exam: PRESENT: PERRLA Mouth exam: PRESENT: dry mucosa Neck exam: ABSENT: carotid bruit, JVD, lymphadenopathy, thyromegaly Respiratory exam: PRESENT: clear to auscultation marija. ABSENT: rales, rhonchi, wheezes GI/Abdominal exam: PRESENT: normal bowel sounds, soft. ABSENT: distended, guarding, mass, organolmegaly, rebound, tenderness Extremities exam: PRESENT: full ROM. ABSENT: calf tenderness, clubbing, pedal edema Neurological exam: PRESENT: awake, oriented to situation, CN II-XII grossly intact, other - Patient has advanced dementia.. ABSENT: oriented to person, oriented to place, oriented to time, motor sensory deficit Results Laboratory Results: 07/23/18 06:04 07/23/18 06:04 07/23/18 07/23/18 06:04 06:04 WBC 11.2 H RBC 4.08 Hgb 11.0 L Hct 32.8 L MCV 80 MCH 27.0 MCHC 33.6 RDW 16.0 H Plt Count 176 Seg Neutrophils % 73.9 Lymphocytes % 15.7 Monocytes % 8.6 Eosinophils % 1.2 Basophils % 0.6 Absolute Neutrophils 8.3 H Absolute Lymphocytes 1.8 Absolute Monocytes 1.0 Absolute Eosinophils 0.1 Absolute Basophils 0.1 Sodium 141.2 Potassium 4.0 Chloride 111 H Carbon Dioxide 24 Anion Gap 6 BUN 21 H Creatinine 1.03 Est GFR ( Amer) > 60 Est GFR (Non-Af Amer) 51 L Glucose 104 Calcium 8.4 Magnesium 1.7 Total Bilirubin 0.7 AST 14 ALT 19 Alkaline Phosphatase 68 Total Protein 5.7 L Albumin 2.9 L 07/18/18 07/18/18 07/18/18 11:25 11:25 19:58 Creatine Kinase 663 H 466 H CK-MB (CK-2) 13.20 H Troponin I 0.038 NT-Pro-B Natriuret Pep 07/19/18 07/22/18 05:10 05:19 Creatine Kinase 64 CK-MB (CK-2) Troponin I NT-Pro-B Natriuret Pep 3540 H Impressions: Head MRI 07/18/18 00:00 IMPRESSION: Limited due to extensive motion however no convincing evidence for an acute intracranial abnormality. 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 copyright 2010 [employer]- All Rights Reserved Chest X-Ray 07/18/18 10:37 IMPRESSION: Cardiomegaly without acute abnormality of the lungs in AP projection. Head CT 07/18/18 10:37 IMPRESSION: No acute findings. 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 EVIDENCE OF ACUTE STROKE: NO. Carotid Doppler Study 07/19/18 00:00 IMPRESSION: NO HEMODYNAMICALLY SIGNIFICANT STENOSIS. Assessment & Plan - Diagnosis (1) Altered mental status Qualifiers: Altered mental status type: unspecified Qualified Code(s): R41.82 - Altered mental status, unspecified Is this a current diagnosis for this admission?: Yes Plan: 07/18/2018-plan for the altered mental status he is to put her on I am ICU she is a full code aspiration, fall, seizure precautions were requested. MRI of the brain without contrast was requested. Neurochecks were requested. Patient was placed on Ativan 0.5 mg IV every 4-6 as needed for agitation. PT consult social media marketing manager consult was requested. Altered mental status probably secondary to nonspecific causes. Elizondo's catheter was placed heart rate on IV fluids normal saline at 50 cc/h carotid Doppler was requested. Patient was placed on bedrest. pt is a full code. 07/19/2018 altered mental status/encephalopathy due to unknown etiology. CT head was negative MRI of the brain was negative carotid Doppler was negative and the blood work came back negative so far. Neurochecks are negative. Skull therapy consult was requested probably patient may need to go to a rehab facility. 07/20/2018 altered mental status/encephalopathy due to unknown etiology probably she has underlying dementia. Started on memantine 5 mg p.o. twice daily today. Patient is still confused and agitated. Probably is safe for her to go to [place] assisted [facility] or residential facility. 07/21/2018-patient was admitted with altered mental status confusion/ encephalopathy most likely secondary to advanced dementia. Patient was started on memantine 5 mg p.o. twice a day. Patient is comfortably sleeping in the bed today. No complaints of anxiety or agitation. Patient was able to feed herself. plan is to place the pt in half-way facility. 07/22/2018-patient is admitted with altered mental status/encephalopathy. In my opinion most likely secondary to underlying advanced dementia. As I mentioned above patient is on memantine 5 mg p.o. twice a day. Waiting for a [employer] approval for placement. 07/23/2018-patient has advanced dementia probably causing altered mental status/encephalopathy. Patient is refusing the medications and refusing to eat since yesterday. Hopefully family members will help her to take her medications. Patient lives alone now. We waiting for the placement. In the meantime we will continue the present management. CT head was negative for acute changes. (2) Hypokalemia Is this a current diagnosis for this admission?: Yes Plan: 07/18/2018-potassium level is 3.3. Managed to give 40 mg of potassium liquid p.o. 8 x 1 dose. Planning to do the follow-up chemistry tomorrow. 07/19/2018-potassium level is 3.6 today. Hypokalemia is resolved with potassium supplementation. 07/20/2018 potassium is 3.6. Hypokalemia is resolved. 07/21/2018-patient admitted with potassium level of 3.3. With initial potassium supplementation hypokalemia resolved. Today's potassium again is 3.1, started on potassium chloride 40 mg p.o. daily. plan is to check the chemistry again tomorrow. 07/22/2018-patient potassium level is 3.1 today. She is on p.o. potassium supplementation but refusing the medication. Plan to give K rider 40 mEq today. To Recheck the labs tomorrow morning. 07/23/2018 potassium level is 4.0 today. Patient was given a K rider IV yesterday. Hypokalemia is resolved. (3) Chronic kidney disease (CKD) Is this a current diagnosis for this admission?: Yes Plan: 07/18/2018 admission creatinine is 1.88 previous creatinine 2 months ago was 1.57. Acute on chronic renal insufficiency probably secondary to prerenal status. She was started on IV fluids normal saline at 50 cc/h. 07/19/2018 admission creatinine is 1.88 and it came down to 1.37 today. Acute kidney injury is resolving. -patient admission creatinine is 1.88 improved to 1.39 with IV fluids. Acute kidney injury is resolving. 07/21/2018 creatinine at the time of admission is 1.88 it was improved to 1.02 today with IV fluids acute kidney injury probably prerenal is resolved. 07/22/2018-patient admission creatinine is 1.88. Today's labs indicate creatinine is 1.02. Acute kidney injury probably prerenal is resolved. Patient is off the IV fluids right now. 07/23/2018-patient's admission creatinine is 1.88 and it was 1.03 today. Acute kidney injury probably due to prerenal causes is resolved. (4) Hypertension Is this a current diagnosis for this admission?: Yes Plan: 07/18/2018-patient blood pressure is 185/72. Patient is on blood pressure medications at home we do not have that information. Started on lisinopril 10 mg p.o. daily amlodipine 5 mg p.o. daily. wiill do daily measurements of the blood pressures. 07/19/2018-blood pressure today is 182/73. Patient is presently on amlodipine 2.5 mg p.o. daily, lisinopril 10 mg p.o. daily, metoprolol 12.5 mg p.o. twice daily. IV fluids discontinued today. Amlodipine was discontinued patient was put back on nifedipine 60 mg p.o. twice a day. 07/20/2018 blood pressure today is 178/75. She is on lisinopril 10 mg daily nifedipine 60 mg p.o. twice daily. I increased the lisinopril to 40 mg p.o. d aily. Going to close Franck monitor the blood pressure measurements. She is also on metoprolol 100 mg p.o. daily. 07/21/2018-blood pressure today is 158/75 improved compared to yesterday. Patient is presently on lisinopril 40 mg p.o. daily, nifedipine 60 mg p.o. twice a day, metoprolol 100 mg p.o. daily. Plan is to continue the present management. BNP was elevated at 3450, to start on Lasix 20 mg p.o. daily. 07/22/2018-blood pressure today is 90/74. I requested the nurse to check the manual blood pressure. Usually blood pressures are relatively high. If the blood pressure is low then will hold her blood pressure medications for today. 07/23/2018-patient's blood pressure today is 148/60 relatively controlled well with a heart rate of 79. Patient is presently on lisinopril 40 mg p.o. daily, nifedipine 60 mg p.o. twice a day, metoprolol 100 mg p.o. daily. Plan is to continue the present management. (5) Rhabdomyolysis Is this a current diagnosis for this admission?: Yes Plan: 07/18/2018 admission CPK level is a 661. Elevated CPK levels probably secondary to history of falls. Started on IV fluids normal saline 50 cc/h we going to do the follow-up CPK levels. 07/19/2018-CPK level is 661 on admission probably secondary to falls. With IV fluids CPK levels came down to 466. 06/19/2019 initial CK levels are 661 with IV fluids improved to 466 rhabdomyolysis secondary to falls is resolving. 07/21/2018- CK levels at the time of admission 661 probably secondary to falls. With IV fluids CPK levels came down to 466. Plan is to recheck the CK levels again tomorrow. 07/22/2018-CK level at the time of admission is 661, improved to 26 for today. rhabdomyolysis is probably secondary to multiple falls at home. 07/23/2018 rhabdomyolysis is resolved. (6) Smoker Is this a current diagnosis for this admission?: Yes Plan: 07/19/2018-patient is a chronic smoker she was placed on nicotine patch daily. Smoking counseling was provided for more than 10 minutes. 07/21/2018 patient is a chronic smoker she is receiving nicotine patch daily. 07/22/2018-patient is a chronic smoker, presently she is on nicotine patch. 07/23/2018 patient is a chronic smoker she is on nicotine patch now. (7) Dementia Is this a current diagnosis for this admission?: Yes Plan: 07/20/2018-patient may have dementia it may explain the confusion and agitation. She was started on memantine 5 mg p.o. twice daily today. Is to continue the present management. 07/21/2018-patient probably has advanced dementia contributing to altered mental status/encephalopathy. 07/22/2018-patient has advanced dementia on memantine 5 mg p.o. twice daily plan is to continue the present management. 07/23/2018 patient has advanced dementia she is on memantine 5 mg p.o. twice a day. Plan is to increase the dose to 10 mg twice a day. Waiting for the placement. - Time Time Spent with patient: 15-24 minutes Medications reviewed and adjusted accordingly: Yes Anticipated discharge: SNF
[2018-07-23] MEDS: NIFEDIPINE 30 MG TAB.ER.24 PO SCH ×2 (11:22→21:31)
[2018-07-23] MEDS: METOPROLOL SUCCINATE 50 MG TAB.SR.24H PO SCH (11:22)
[2018-07-23] MEDS: FAMOTIDINE 20 MG TABLET PO SCH ×2 (11:22→21:31)
[2018-07-23] MEDS: MEMANTINE HCL 10 MG TABLET PO SCH ×2 (11:23→21:31)
[2018-07-23] MEDS: DOCUSATE SODIUM 100 MG CAPSULE PO SCH ×2 (11:23→17:29)
[2018-07-23] MEDS: FUROSEMIDE 20 MG TABLET PO SCH (11:24)
[2018-07-23] MEDS: ENOXAPARIN SODIUM INJ 30 MG/0.3 ML DISP.SYRIN SUBCUT SCH (11:25)
[2018-07-23] MEDS: LISINOPRIL 10 MG TABLET PO SCH (11:26)
[2018-07-23] MEDS: LORAZEPAM INJ 2 MG/1 ML VIAL IV PRN (22:35)
[2018-07-24] MEDS ORDERED: LORAZEPAM INJ 2 MG/1 ML VIAL ONE (01:43)
[2018-07-24] MEDS: LORAZEPAM INJ 2 MG/1 ML VIAL IV PRN ×2 (01:45→23:03)
[2018-07-24] MEDS: NICOTINE 14 MG/24 HR PATCH.TD24 TD PRN (02:59)
[2018-07-24] MEDS: ENOXAPARIN SODIUM INJ 30 MG/0.3 ML DISP.SYRIN SUBCUT SCH (10:03)
[2018-07-24] MEDS: FUROSEMIDE 20 MG TABLET PO SCH ×3 (10:04→19:30)
[2018-07-24] MEDS: METOPROLOL SUCCINATE 50 MG TAB.SR.24H PO SCH ×2 (10:04→13:54)
[2018-07-24] MEDS: FAMOTIDINE 20 MG TABLET PO SCH ×3 (10:04→23:02)
[2018-07-24] MEDS: LISINOPRIL 10 MG TABLET PO SCH ×2 (10:04→13:55)
[2018-07-24] MEDS: MEMANTINE HCL 10 MG TABLET PO SCH ×3 (10:04→23:02)
[2018-07-24] MEDS: DOCUSATE SODIUM 100 MG CAPSULE PO SCH ×3 (10:04→17:09)
[2018-07-24] MEDS: NIFEDIPINE 30 MG TAB.ER.24 PO SCH ×3 (10:04→23:02)
--- NOTE | 2018-07-24 11:15 | PDOC PROGRESS REPORT ---
Subjective Progress Note for:: 07/24/18 Subjective:: [birth year][id number]-qzoj-old female with history of hypertension brought to the emergency room by the family members with complaints of change in mental status. She was seen last Wednesday with normal behavior and stepdaughter went to see the pt today and noticed the blinds are not open, she felt something is wrong she opened the dooe went into the house immediately stepped onto a pool of water , started calling her mom come to out of the restroom and found her mom at the doorstep of the bedroom with pants down and not properly wearing the clothes when questioned what happened , patient stating blankly at her, looking confused and agitated. So the stepdaughter called for help and during that time patient fell one time without injuring herself. And the family members also noticed patient is unable to following the instructions. They took the patient stepdaughters home and still found to be confused and agitated also. Did not notice any nausea vomiting diarrhea . No fever cough cold was reported. Appetite was poor. because of the confusion and agitation and anxiety family brought her to the emergency room for further evaluation. By the time i went to see the patient patient was in ER, mittens were placed because pt is pulled out the nasal cannula pulled out the IV lines so as a preventive measure hands are covered with mittens. Patient is unable to give a history at all except for laughing. Stepdaughter able to provide the information of what exactly happened. CT head was negative during the ER evaluation. Chest x-ray was also negative. Urine drug screen was negative. Patient lives alone family is requesting for placement. 07/19/2018 no acute events in the last 24 hours. She is still confused. But she is not agitated or anxious like yesterday. Afebrile. All the workup so far is negative. 07/20/2018-patient was confused and agitated yesterday evening may have a sundown syndrome. She was given metoprolol IV 1 dose last night because of the high blood pressure. Patient is afebrile. Patient is calm and comfortable in the bed. Still confused. may be She has dementia. 07/21/2018-she is comfortable in the sleeping in the bed not in distress. I discussed the plan of care with the nurse Mimi, no acute events in the last 24 hours. Patient able to feed herself. Patient was admitted with altered mental status stroke was ruled out. Altered mental status/encephalopathy probably secondary to advanced dementia. 07/22/2018 patient is comfortably sleeping in the bed not in distress. Patient potassium is 3.1 today she is on 40 mg p.o. potassium for the nurse told me patient is not taking it. Be going to give a K rider IV today. Blood pressure is 90/74 patient is asymptomatic as per the nurse. Waiting for approval from [facility] for placement. Patient is afebrile. No acute events in the last 24 hours. 07/23/2018 comfortably sleeping in the bed I spoke to the nurse Lisseth gillette, according to her patient is refusing to take her medications since yesterday. She has a low-grade fever in the last 24 hours T-max is 99.3. No acute events in the last 24 hours. Awaiting placement. 07/24/2018 no acute events in last 24 hours. Patient is afebrile. Still confused. Probably it is secondary to advanced dementia. She is waiting for the placement. T-max is 98. Reason For Visit: ALTERED MENTAL STATUS Physical Exam Vital Signs: Temp Pulse Resp BP Pulse Ox 98.0 F 81 18 153/61 H 96 07/24/18 08:06 07/24/18 08:06 07/24/18 08:06 07/24/18 08:06 07/24/18 08:06 Intake & Output 07/23/18 07/24/18 07/25/18 06:59 06:59 06:59 Intake Total 250 475 Balance 250 475 Weight 70.9 kg 69.4 kg General appearance: PRESENT: other - Comfortably sleeping in the bed not in distress. Head exam: PRESENT: atraumatic Eye exam: PRESENT: PERRLA Mouth exam: PRESENT: moist, tongue midline Neck exam: ABSENT: carotid bruit, JVD, lymphadenopathy, thyromegaly Respiratory exam: PRESENT: decreased breath sounds Cardiovascular exam: PRESENT: systolic murmur, tachycardia GI/Abdominal exam: PRESENT: normal bowel sounds, soft. ABSENT: distended, guarding, mass, organolmegaly, rebound, tenderness Extremities exam: PRESENT: full ROM. ABSENT: calf tenderness, clubbing, pedal edema Neurological exam: PRESENT: alert, awake, oriented to person, oriented to place, oriented to time, oriented to situation, CN II-XII grossly intact. ABSENT: motor sensory deficit Psychiatric exam: PRESENT: appropriate affect, normal mood. ABSENT: homicidal ideation, suicidal ideation Results Laboratory Results: 07/23/18 06:04 07/23/18 06:04 07/18/18 17:23 Blood Blood Culture - Final NO GROWTH IN 5 DAYS 07/18/18 17:15 Blood Blood Culture - Final NO GROWTH IN 5 DAYS 07/18/18 07/18/18 07/18/18 11:25 11:25 19:58 Creatine Kinase 663 H 466 H CK-MB (CK-2) 13.20 H Troponin I 0.038 NT-Pro-B Natriuret Pep 07/19/18 07/22/18 05:10 05:19 Creatine Kinase 64 CK-MB (CK-2) Troponin I NT-Pro-B Natriuret Pep 3540 H Impressions: Head MRI 07/18/18 00:00 IMPRESSION: Limited due to extensive motion however no convincing evidence for an acute intracranial abnormality. 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 copyright 2011 [employer]- All Rights Reserved Chest X-Ray 07/18/18 10:37 IMPRESSION: Cardiomegaly without acute abnormality of the lungs in AP projecti on. Head CT 07/18/18 10:37 IMPRESSION: No acute findings. 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 EVIDENCE OF ACUTE STROKE: NO. Carotid Doppler Study 07/19/18 00:00 IMPRESSION: NO HEMODYNAMICALLY SIGNIFICANT STENOSIS. Assessment & Plan - Diagnosis (1) Altered mental status Qualifiers: Altered mental status type: unspecified Qualified Code(s): R41.82 - Altered mental status, unspecified Is this a current diagnosis for this admission?: Yes Plan: 07/18/2018-plan for the altered mental status he is to put her on I am ICU she is a full code aspiration, fall, seizure precautions were requested. MRI of the brain without contrast was requested. Neurochecks were requested. Patient was placed on Ativan 0.5 mg IV every 4-6 as needed for agitation. PT consult social group worker consult was requested. Altered mental status probably secondary to nonspecific causes. Elizondo's catheter was placed heart rate on IV fluids normal saline at 50 cc/h carotid Doppler was requested. Patient was placed on bedrest. pt is a full code. 07/19/2018 altered mental status/encephalopathy due to unknown etiology. CT head was negative MRI of the brain was negative carotid Doppler was negative and the blood work came back negative so far. Neurochecks are negative. Skull therapy consult was requested probably patient may need to go to a rehab facility. 07/20/2018 altered mental status/encephalopathy due to unknown etiology probably she has underlying dementia. Started on memantine 5 mg p.o. twice daily today. Patient is still confused and agitated. Probably is safe for [place] to go to [place] living or [place] facility. 07/21/2018-patient was admitted with altered mental status confusion/ encephalopathy most likely secondary to advanced dementia. Patient was started on memantine 5 mg p.o. twice a day. Patient is comfortably sleeping in the bed today. No complaints of anxiety or agitation. Patient was able to feed herself. plan is to place the pt in intermediate facility. 07/22/2018-patient is admitted with altered mental status/encephalopathy. In my opinion most likely secondary to underlying advanced dementia. As I mentioned above patient is on memantine 5 mg p.o. twice a day. Waiting for a [facility] approval for placement. 07/23/2018-patient has advanced dementia probably causing altered mental status/encephalopathy. Patient is refusing the medications and refusing to eat since yesterday. Hopefully family members will help her to take her medi cations. Patient lives alone now. We waiting for the placement. In the meantime we will continue the present management. CT head was negative for acute changes. 2018 patient was admitted with altered mental status/acute encephalopathy probably secondary to advanced dementia. She is on memantine 10 mg p.o. twice daily. Plan is to continue the present management. (2) Hypokalemia Is this a current diagnosis for this admission?: Yes Plan: 07/18/2018-potassium level is 3.3. Managed to give 40 mg of potassium liquid p.o. 8 x 1 dose. Planning to do the follow-up chemistry tomorrow. 07/19/2018-potassium level is 3.6 today. Hypokalemia is resolved with potassium supplementation. 07/20/2018 potassium is 3.6. Hypokalemia is resolved. 07/21/2018-patient admitted with potassium level of 3.3. With initial potassium supplementation hypokalemia resolved. Today's potassium again is 3.1, started on potassium chloride 40 mg p.o. daily. plan is to check the chemistry again tomorrow. 07/22/2018-patient potassium level is 3.1 today. She is on p.o. potassium supplementation but refusing the medication. Plan to give K rider 40 mEq today. To Recheck the labs tomorrow morning. 07/23/2018 potassium level is 4.0 today. Patient was given a K rider IV yesterday. Hypokalemia is resolved. 07/24/2018-potassium level today is 4.0 hypokalemia is resolved. (3) Chronic kidney disease (CKD) Is this a current diagnosis for this admission?: Yes Plan: 07/18/2018 admission creatinine is 1.88 previous creatinine 2 months ago was 1.57. Acute on chronic renal insufficiency probably secondary to prerenal status. She was started on IV fluids normal saline at 50 cc/h. 07/19/2018 admission creatinine is 1.88 and it came down to 1.37 today. Acute kidney injury is resolving. -patient admission creatinine is 1.88 improved to 1.39 with IV fluids. Acute kidney injury is resolving. 07/21/2018 creatinine at the time of admission is 1.88 it was improved to 1.02 today with IV fluids acute kidney injury probably prerenal is resolved. 07/22/2018-patient admission creatinine is 1.88. Today's labs indicate creatinine is 1.02. Acute kidney injury probably prerenal is resolved. Patient is off the IV fluids right now. 07/23/2018-patient's admission creatinine is 1.88 and it was 1.03 today. Acute kidney injury probably due to prerenal causes is resolved. 07/24/2018-patient creatinine today is 1.03. Acute kidney injury probably prerenal resolved. (4) Hypertension Is this a current diagnosis for this admission?: Yes Plan: 07/18/2018-patient blood pressure is 185/72. Patient is on blood pressure medications at home we do not have that information. Started on lisinopril 10 mg p.o. daily amlodipine 5 mg p.o. daily. wiill do daily measurements of the blood pressures. 07/19/2018-blood pressure today is 182/73. Patient is presently on amlodipine 2.5 mg p.o. daily, lisinopril 10 mg p.o. daily, metoprolol 12.5 mg p.o. twice daily. IV fluids discontinued today. Amlodipine was discontinued patient was put back on nifedipine 60 mg p.o. twice a day. 07/20/2018 blood pressure today is 178/75. She is on lisinopril 10 mg daily nifedipine 60 mg p.o. twice daily. I increased the lisinopril to 40 mg p.o. daily. Going to close Franck monitor the blood pressure measurements. She is also on metoprolol 100 mg p.o. daily. 07/21/2018-blood pressure today is 158/75 improved compared to yesterday. Patient is presently on lisinopril 40 mg p.o. daily, nifedipine 60 mg p.o. twice a day, metoprolol 100 mg p.o. daily. Plan is to continue the present management. BNP was elevated at 3450, to start on Lasix 20 mg p.o. daily. 07/22/2018-blood pressure today is 90/74. I requested the nurse to check the manual blood pressure. Usually blood pressures are relatively high. If the blood pressure is low then will hold her blood pressure medications for today. 07/23/2018-patient's blood pressure today is 148/60 relatively controlled well with a heart rate of 79. Patient is presently on lisinopril 40 mg p.o. daily, nifedipine 60 mg p.o. twice a day, metoprolol 100 mg p.o. daily. Plan is to continue the present management. 07/24/2018 patient blood pressure today is 153/61. With heart rate of 81. On lisinopril 40 mg daily, nifedipine 60 mg twice a day, metoprolol 100 mg p.o. daily plan is to continue the present management. (5) Rhabdomyolysis Is this a current diagnosis for this admission?: Yes (6) Smoker Is this a current diagnosis for this admission?: Yes (7) Dementia Is this a current diagnosis for this admission?: Yes Plan: 07/20/2018-patient may have dementia it may explain the confusion and agitation. She was started on memantine 5 mg p.o. twice daily today. Is to continue the present management. 07/21/2018-patient probably has advanced dementia contributing to altered mental status/encephalopathy. 07/22/2018-patient has advanced dementia on memantine 5 mg p.o. twice daily plan is to continue the present management. 07/23/2018 patient has advanced dementia she is on memantine 5 mg p.o. twice a day. Plan is to increase the dose to 10 mg twice a day. Waiting for the placement. 03/24/2019-dementia initially on memantine 5 mg p.o. twice a day dose was increased to 10 mg p.o. twice daily. No complications. Plan is to continue the present management. - Time Time Spent with patient: 15-24 minutes Medications reviewed and adjusted accordingly: Yes Anticipated discharge: SNF
[2018-07-24] MEDS ORDERED: BISACODYL 10 MG SUPP.RECT PR PRN (12:02)
[2018-07-25 06:48] LABS: ABSOLUTE EOSINOPHILS # (AUTO) 0.1 10^3/uL (0.0-0.6); ABSOLUTE LYMPHOCYTES (AUTO) 1.5 10^3/uL (0.5-4.7); ABSOLUTE MONOCYTES (AUTO) 0.7 10^3/uL (0.1-1.4); ABSOLUTE NEUT (AUTO) 6.1 10^3/uL (1.7-8.2); BASOPHILS % (AUTO) 0.4 % (0-2); EOSINOPHILS % (AUTO) 1.2 % (0-6); HEMATOCRIT 34.8 % (36.0-47.0); HEMOGLOBIN 11.8 g/dL (12.0-15.5); LYMPHOCYTES % (AUTO) 17.5 % (13-45); MEAN CORPUSCULAR HEMOGLOBIN 27.2 pg (27.0-33.4); MEAN CORPUSCULAR HGB CONC 34.1 g/dL (32.0-36.0); MEAN CORPUSCULAR VOLUME 80 fl (80-97); MONOCYTES % (AUTO) 8.5 % (3-13); PLATELET COUNT 253 10^3/uL (150-450); RED BLOOD COUNT 4.36 10^6/uL (3.72-5.28); RED CELL DISTRIBUTION WIDTH 16.1 % (11.5-14.0); SEGMENTED NEUTROPHILS % (AUTO) 72.4 % (42-78); TOTAL CELLS COUNTED % (AUTO) 100 %; WHITE BLOOD COUNT 8.5 10^3/uL (4.0-10.5)
[2018-07-25 07:16] LABS: ALANINE AMINOTRANSFERASE 19 U/L (9-52); ALBUMIN 3.3 g/dL (3.5-5.0); ALKALINE PHOSPHATASE 78 U/L (38-126); ANION GAP 9 (5-19); ASPARTATE AMINO TRANSFERASE 16 U/L (14-36); BILIRUBIN,DIRECT 0.3 mg/dL (0.0-0.4); BILIRUBIN,TOTAL 0.7 mg/dL (0.2-1.3); BLOOD UREA NITROGEN 24 mg/dL (7-20); CALCIUM 9.3 mg/dL (8.4-10.2); CARBON DIOXIDE 25 mmol/L (22-30); CHLORIDE 110 mmol/L (98-107); GLUCOSE 94 mg/dL (75-110); POTASSIUM 4.3 mmol/L (3.6-5.0); SODIUM 143.7 mmol/L (137-145); TOTAL PROTEIN 6.4 g/dL (6.3-8.2)
[2018-07-25] MEDS: METOPROLOL SUCCINATE 50 MG TAB.SR.24H PO SCH (10:20)
[2018-07-25] MEDS: NIFEDIPINE 30 MG TAB.ER.24 PO SCH (10:20)
[2018-07-25] MEDS: FUROSEMIDE 20 MG TABLET PO SCH (10:21)
[2018-07-25] MEDS: DOCUSATE SODIUM 100 MG CAPSULE PO SCH (10:21)
--- NOTE | 2018-07-25 10:23 | RADIOLOGY REPORT (SQ) ---
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 TECHNIQUE: Videofluoroscopic swallowing examination was performed in conjunction with speech patholo gy. Videofluoroscopic imaging was obtained and reviewed and these are the findings: RADIATION DOSE: Fluoro time 2.26 minutes 1 images saved to PACS. LIMITATIONS: None FINDINGS: The patient was brought into the fluoro room and placed upright on a modified barium swall ow chair. The patient was then given multiple consistencies mixed with barium to swallow under live fluoroscopic video guidance. According to the Speech Pathologist there was probable aspiration with thin barium, although not directly visualized, did elicit a cough. [place] thick and pureed consisten cies were swallowed without incident. Please refer to the speech pathology report for further details . IMPRESSION: PROBABLE ASPIRATION WITH THIN BARIUM.PLEASE SEE SPEECH PATHOLOGIST REPORT FOR OTHER FIND INGS AND RECOMMENDATIONS. COMMENT: None Quality ID [id number]: Final reports for procedures using fluoroscopy that document radiation exposure jasvir rafael, or exposure time and number of fluorographic images (if radiation exposure indices are not avail able) TECHNICAL DOCUMENTATION: JOB ID: [id number] [employer]- All Rights Reserved Reading location - IP/workstation name: [email or web address]
--- NOTE | 2018-07-25 10:26 | PDOC PROGRESS REPORT ---
Subjective Progress Note for:: 07/25/18 Subjective:: 07/18/[id number]-old female with history of hypertension brought to the emergency room by the family members with complaints of change in mental status. She was seen last Wednesday with normal behavior and stepdaughter went to see the pt today and noticed the blinds are not open, she felt something is wrong she opened the dooe went into the house immediately stepped onto a pool of water , started calling her mom come to out of the restroom and found her mom at the doorstep of the bedroom with pants down and not properly wearing the clothes when questioned what happened , patient stating blankly at her, looking confused and agitated. So the stepdaughter called for help and during that time patient fell one time without injuring herself. And the family members also noticed patient is unable to following the instructions. They took the patient stepdaughters home and still found to be confused and agitated also. Did not notice any nausea vomiting diarrhea . No fever cough cold was reported. Appetite was poor. because of the confusion and agitation and anxiety family brought her to the emergency room for further evaluation. By the time i went to see the patient patient was in ER, mittens were placed because pt is pulled out the nasal cannula pulled out the IV lines so as a preventive measure hands are covered with mittens. Patient is unable to give a history at all except for laughing. Stepdaughter able to provide the information of what exactly happened. CT head was negative during the ER evaluation. Chest x-ray was also negative. Urine drug screen was negative. Patient lives alone family is requesting for placement. 07/19/2018 no acute events in the last 24 hours. She is still confused. But she is not agitated or anxious like yesterday. Afebrile. All the workup so far is negative. 07/20/2018-patient was confused and agitated yesterday evening may have a sundown syndrome. She was given metoprolol IV 1 dose last night because of the high blood pressure. Patient is afebrile. Patient is calm and comfortable in the bed. Still confused. may be She has dementia. 07/21/2018-she is comfortable in the sleeping in the bed not in distress. I discussed the plan of care with the nurse Mimi, no acute events in the last 24 hours. Patient able to feed herself. Patient was admitted with altered mental status stroke was ruled out. Altered mental status/encephalopathy probably secondary to advanced dementia. 07/22/2018 patient is comfortably sleeping in the bed not in distress. Patient potassium is 3.1 today she is on 40 mg p.o. potassium for the nurse told me patient is not taking it. Be going to give a K rider IV today. Blood pressure is 90/74 patient is asymptomatic as per the nurse. Waiting for approval from [facility] for placement. Patient is afebrile. No acute events in the last 24 hours. 07/23/2018 comfortably sleeping in the bed I spoke to the nurse Lisseth gillette, according to her patient is refusing to take her medications since yesterday. She has a low-grade fever in the last 24 hours T-max is 99.3. No acute events in the last 24 hours. Awaiting placement. 07/24/2018 no acute events in last 24 hours. Patient is afebrile. Still confused. Probably it is secondary to advanced dementia. She is waiting for the placement. T-max is 98. 07/25/2018-patient is comfortably sleeping in the bed nurse told me family concerned about patient having the right hand weakness. As per the family patient able to feed herself now she has difficulty holding the spoon under the also concerned about her speech and swallowing problems speech therapy was done this morning the recommended pured diet and nectar thick nectar thickened liquids. So far MRI of the brain and CT head carotid Doppler came back negative. I am going to arrange for CT head without contrast today. To rule out any stroke. Neurochecks are negative for stroke. Reason For Visit: ALTERED MENTAL STATUS Physical Exam Vital Signs: Temp Pulse Resp BP Pulse Ox 98.1 F 69 16 172/78 H 93 07/25/18 07:20 07/25/18 07:20 07/25/18 07:20 07/25/18 07:20 07/25/18 07:20 Intake & Output 07/24/18 07/25/18 07/26/18 06:59 06:59 06:59 Intake Total 475 275 Balance 475 275 Weight 69.4 kg 67.9 kg General appearance: PRESENT: no acute distress Head exam: PRESENT: atraumatic Eye exam: PRESENT: PERRLA Mouth exam: PRESENT: dry mucosa Neck exam: ABSENT: carotid bruit, JVD, lymphadenopathy, thyromegaly Respiratory exam: PRESENT: clear to auscultation marija. ABSENT: rales, rhonchi, wheezes Cardiovascular exam: PRESENT: systolic murmur, tachycardia GI/Abdominal exam: PRESENT: normal bowel sounds, soft. ABSENT: distended, guarding, mass, organolmegaly, rebound, tenderness Extremities exam: PRESENT: full ROM. ABSENT: calf tenderness, clubbing, pedal edema Neurological exam: PRESENT: alert, awake, oriented to person, oriented to place, oriented to time, oriented to situation, CN II-XII grossly intact. ABSENT: motor sensory deficit Psychiatric exam: PRESENT: appropriate affect, normal mood. ABSENT: homicidal ideation, suicidal ideation Results Laboratory Results: 07/25/18 06:14 07/25/18 06:19 07/25/18 07/25/18 06:14 06:19 WBC 8.5 RBC 4.36 Hgb 11.8 L Hct 34.8 L MCV 80 MCH 27.2 MCHC 34.1 RDW 16.1 H Plt Count 253 Seg Neutrophils % 72.4 Lymphocytes % 17.5 Monocytes % 8.5 Eosinophils % 1.2 Basophils % 0.4 Absolute Neutrophils 6.1 Absolute Lymphocytes 1.5 Absolute Monocytes 0.7 Absolute Eosinophils 0.1 Absolute Basophils 0.0 Sodium 143.7 Potassium 4.3 Chloride 110 H Carbon Dioxide 25 Anion Gap 9 BUN 24 H Creatinine 1.04 Est GFR ( Amer) > 60 Est GFR (Non-Af Amer) 51 L Glucose 94 Calcium 9.3 Magnesium 1.9 Total Bilirubin 0.7 AST 16 ALT 19 Alkaline Phosphatase 78 Total Protein 6.4 Albumin 3.3 L 07/18/18 07/18/18 07/18/18 11:25 11:25 19:58 Creatine Kinase 663 H 466 H CK-MB (CK-2) 13.20 H Troponin I 0.038 NT-Pro-B Natriuret Pep 07/19/18 07/22/18 07/25/18 05:10 05:19 06:19 Creatine Kinase 64 CK-MB (CK-2) Troponin I NT-Pro-B Natriuret Pep 3540 H 840 H Impressions: Head MRI 07/18/18 00:00 IMPRESSION: Limited due to extensive motion however no convincing evidence for an acute intracranial abnormality. 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 copyright 2010 [employer]- All Rights Reserved Chest X-Ray 07/18/18 10:37 IMPRESSION: Cardiomegaly without acute abnormality of the lungs in AP proj ection. Head CT 07/18/18 10:37 IMPRESSION: No acute findings. 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 EVIDENCE OF ACUTE STROKE: NO. Carotid Doppler Study 07/19/18 00:00 IMPRESSION: NO HEMODYNAMICALLY SIGNIFICANT STENOSIS. Assessment & Plan - Diagnosis (1) Hypertension Is this a current diagnosis for this admission?: Yes Plan: 07/18/2018-patient blood pressure is 185/72. Patient is on blood pressure medications at home we do not have that information. Started on lisinopril 10 mg p.o. daily amlodipine 5 mg p.o. daily. wiill do daily measurements of the blood pressures. 07/19/2018-blood pressure today is 182/73. Patient is presently on amlodipine 2.5 mg p.o. daily, lisinopril 10 mg p.o. daily, metoprolol 12.5 mg p.o. twice daily. IV fluids discontinued today. Amlodipine was discontinued patient was put back on nifedipine 60 mg p.o. twice a day. 07/20/2018 blood pressure today is 178/75. She is on lisinopril 10 mg daily nifedipine 60 mg p.o. twice daily. I increased the lisinopril to 40 mg p.o. daily. Going to close Franck monitor the blood pressure measurements. She is also on metoprolol 100 mg p.o. daily. 07/21/2018-blood pressure today is 158/75 improved compared to yesterday. Patient is presently on lisinopril 40 mg p.o. daily, nifedipine 60 mg p.o. twice a day, metoprolol 100 mg p.o. daily. Plan is to continue the present management. BNP was elevated at 3450, to start on Lasix 20 mg p.o. daily. 07/22/2018-blood pressure today is 90/74. I requested the nurse to check the manual blood pressure. Usually blood pressures are relatively high. If the blood pressure is low then will hold her blood pressure medications for today. 07/23/2018-patient's blood pressure today is 148/60 relatively controlled well with a heart rate of 79. Patient is presently on lisinopril 40 mg p.o. daily, nifedipine 60 mg p.o. twice a day, metoprolol 100 mg p.o. daily. Plan is to continue the present management. 07/24/2018 patient blood pressure today is 153/61. With heart rate of 81. On lisinopril 40 mg daily, nifedipine 60 mg twice a day, metoprolol 100 mg p.o. daily plan is to continue the present management. 07/25/2018-patient blood pressure today is 162/68 with heart rate of 75. We plan to switch the diet to pured diet with nectar thickened liquids. Procardia cannot be crushed so we we are plan to discontinue Procardia ,and patient is also on metoprolol extended release it was changed to Lopressor 50 mg twice a day so that it can be crushed and given to the patient. Lasix dose was increased from 20 mg twice a day to 40 mg twice a day. (2) Altered mental status Qualifiers: Altered mental status type: unspecified Qualified Code(s): R41.82 - Altered mental status, unspecified Is this a current diagnosis for this admission?: Yes Plan: 07/18/2018-plan for the altered mental status he is to put her on I am ICU she is a full code aspiration, fall, seizure precautions were requested. MRI of the brain without contrast was requested. Neurochecks were requested. Patient was placed on Ativan 0.5 mg IV every 4-6 as needed for agitation. PT consult outreach and education social worker consult was requested. Altered mental status probably secondary to nonspecific causes. Elizondo's catheter was placed heart rate on IV fluids normal saline at 50 cc/h carotid Doppler was requested. Patient was placed on bedrest. pt is a full code. 07/19/2018 altered mental status/encephalopathy due to unknown etiology. CT head was negative MRI of the brain was negative carotid Doppler was negative and the blood work came back negative so far. Neurochecks are negative. Skull therapy consult was requested probably patient may need to go to a rehab facility. 07/20/2018 altered mental status/encephalopathy due to unknown etiology probably she has underlying dementia. Started on memantine 5 mg p.o. twice daily today. Patient is still confused and agitated. Probably is safe for her to go to [place] assisted living or group home facility. 07/21/2018-patient was admitted with altered mental status confusion/ encephalopathy most likely secondary to advanced dementia. Patient was started on memantine 5 mg p.o. twice a day. Patient is comfortably sleeping in the bed today. No complaints of anxiety or agitation. Patient was able to feed herself. plan is to place the pt in group home facility. 07/22/2018-patient is admitted with altered mental status/encephalopathy. In my opinion most likely secondary to underlying advanced dementia. As I mentioned above patient is on memantine 5 mg p.o. twice a day. Waiting for a [facility] approval for placement. 07/23/2018-patient has advanced dementia probably causing altered mental status/encephalopathy. Patient is refusing the medications and refusing to eat since yesterday. Hopefully family members will help her to take her medic ations. Patient lives alone now. We waiting for the placement. In the meantime we will continue the present management. CT head was negative for acute changes. 07/24/2018 patient was admitted with altered mental status/acute encephalopathy probably secondary to advanced dementia. She is on memantine 10 mg p.o. twice daily. Plan is to continue the present management. 07/25/2018- Patient was admitted with altered mental status/acute and cough neuropathy probably secondary to advanced dementia. Patient is presently on 10 mg of memantine twice a day. Plan is to continue the present management. Patient mental status is at her baseline. (3) Hypokalemia Is this a current diagnosis for this admission?: Yes Plan: 07/18/2018-potassium level is 3.3. Managed to give 40 mg of potassium liquid p.o. 8 x 1 dose. Planning to do the follow-up chemistry tomorrow. 07/19/2018-potassium level is 3.6 today. Hypokalemia is resolved with potassium supplementation. 07/20/2018 potassium is 3.6. Hypokalemia is resolved. 07/21/2018-patient admitted with potassium level of 3.3. With initial potassium supplementation hypokalemia resolved. Today's potassium again is 3.1, started on potassium chloride 40 mg p.o. daily. plan is to check the chemistry again tomorrow. 07/22/2018-patient potassium level is 3.1 today. She is on p.o. potassium supplementation but refusing the medication. Plan to give K rider 40 mEq today. To Recheck the labs tomorrow morning. 07/23/2018 potassium level is 4.0 today. Patient was given a K rider IV yesterday. Hypokalemia is resolved. 07/24/2018-potassium level today is 4.0 hypokalemia is resolved. 07/25/2018-potassium level today is 4.3 hypokalemia was resolved. (4) Chronic kidney disease (CKD) Is this a current diagnosis for this admission?: Yes Plan: 07/18/2018 admission creatinine is 1.88 previous creatinine 2 months ago was 1.57. Acute on chronic renal insufficiency probably secondary to prerenal status. She was started on IV fluids normal saline at 50 cc/h. 07/19/2018 admission creatinine is 1.88 and it came down to 1.37 today. Acute kidney injury is resolving. -patient admission creatinine is 1.88 improved to 1.39 with IV fluids. Acute kidney injury is resolving. 07/21/2018 creatinine at the time of admission is 1.88 it was improved to 1.02 today with IV fluids acute kidney injury probably prerenal is resolved. 07/22/2018-patient admission creatinine is 1.88. Today's labs indicate crea tinine is 1.02. Acute kidney injury probably prerenal is resolved. Patient is off the IV fluids right now. 07/23/2018-patient's admission creatinine is 1.88 and it was 1.03 today. Acute kidney injury probably due to prerenal causes is resolved. 07/24/2018-patient creatinine today is 1.03. Acute kidney injury probably prerenal resolved. 07/25/2018-at the time of admission creatinine is 1.88 it is stable around 1.0 for the last 2 days, acute kidney injury is resolved. (5) Rhabdomyolysis Is this a current diagnosis for this admission?: Yes (6) Smoker Is this a current diagnosis for this admission?: Yes (7) Dementia Is this a current diagnosis for this admission?: Yes Plan: 07/20/2018-patient may have dementia it may explain the confusion and agitation. She was started on memantine 5 mg p.o. twice daily today. Is to continue the present management. 07/21/2018-patient probably has advanced dementia contributing to altered mental status/encephalopathy. 07/22/2018-patient has advanced dementia on memantine 5 mg p.o. twice daily plan is to continue the present management. 07/23/2018 patient has advanced dementia she is on memantine 5 mg p.o. twice a day. Plan is to increase the dose to 10 mg twice a day. Waiting for the placement. 07/24/2018-dementia initially on memantine 5 mg p.o. twice a day dose was increased to 10 mg p.o. twice daily. No complications. Plan is to continue the present management. 07/25/2018-patient has advanced dementia. She was started on memantine 10 mg p.o. twice daily. Plan is to continue the present management. She is waiting for long term placement. Physical therapy consult was requested, occupational therapy was requested. - Time Time Spent with patient: 15-24 minutes Medications reviewed and adjusted accordingly: Yes Anticipated discharge: SNF
[2018-07-25] MEDS: MEMANTINE HCL 10 MG TABLET PO SCH ×2 (11:23→21:34)
[2018-07-25] MEDS: METOPROLOL TARTRATE 50 MG TABLET PO SCH ×2 (11:23→21:34)
[2018-07-25] MEDS: ENOXAPARIN SODIUM INJ 30 MG/0.3 ML DISP.SYRIN SUBCUT SCH (11:23)
[2018-07-25] MEDS: DOCUSATE SODIUM 100 MG/10 ML UDC PO SCH ×3 (11:23→17:27)
[2018-07-25] MEDS: FAMOTIDINE 20 MG TABLET PO SCH ×2 (11:24→21:34)
[2018-07-25] MEDS: LISINOPRIL 10 MG TABLET PO SCH (11:24)
[2018-07-25] MEDS: FUROSEMIDE 40 MG TABLET PO SCH ×2 (11:24→17:27)
--- NOTE | 2018-07-25 11:31 | ST Inp Modified Barium Swallow ---
Medical Diagnosis - Medical Diagnoses Medical Diagnosis Description & ICD-10 Code(s): altered mental status, dysphagia - ICD-10 Tx Diagnosis Coding (1) Dysphagia ICD-10 Code(s): R13.10 - DYSPHAGIA, UNSPECIFIED ST Inpatient [facility] - General Date: 07/25/18 Date of Onset: 07/25/18 - date of order - History History Obtained From: Other - EMR -: Medical - per EMR: patient was admitted 07/18/18 with complaint of change inmental status. Prior medical history includes hypertension and dementia. Medications: Medications Reviewed Allergies: No known allergies - Subjective Current Nutritional Means: PO Current PO Diet: Pureed, Thickened liquids Current Symptoms: Coughing Pain: Patient reports, 0/5 - Objective Assessment: Upright, Left Lateral - Food Trials Food Trials Used: Thin liquids, [place] thick liquids, Pureed The Patient: Required Assist - Assessment Labial Function: Within Normal Limits Lingual Function: Within Normal Limits Mandibular Function: Within Normal Limits Dentition: Partial Velo-Pharyngeal Function: Unremarkable - Pharyngeal Stage Initiation of Pharyngeal Stage: Delayed Reflex Delay Time (seconds): 8 - oral holding seen after the initial swallow was seen Decreased Laryngeal Elevation: No Reduced Velo-Pharyngeal Closure: no Reduced Pressure Generation: No Reduced Tongue Base Retraction: No Pre-Swallowing Pooling in Valleculae: Moderate Pre-Swallowing Pooling in Pyriforms: Moderate Reduced Thyro-Hyiod Approximation: No Reduced Epiglottic Excursion: No Reduced Pharyngeal Peristalsis: No Post Swallow Residuals in Valleculae: None Post Swallow Residuals in Pyriforms: None - Impression/Summary Laryngeal Penetration: Yes - with thin liquid Tracheal Aspiration: yes - with thin liquid, swallow delay resulted in thin liquid freely dripping over tongue base into pharynx. Significant coughing seen after swallow trigger. Although no barium was seen to enter airway, patient remains at high risk, and is likely aspirating due to deficits with the swallow. Patient Presents With: Oral-Pharyngeal dysph., Mild-Moderate Risk of Aspiration: Moderate Risk Due To: oral holding of food and liquid, delayed swallow reflex - Recommendations Solid Diet Recommendations: Pureed Liquid Diet Recommendations: [place]-Thick Strict Aspitarion Precautions: Yes Dysphagia Therapy with ARCHITECTURE INTERN: No Recommended Techniques: Fully Upright During Meal, Check Mouth for Pocketing, Med Crushed in Applesauce, Small Bites and Sips, Alternate Bites/Sips Supervision: Constant, requires assistance - Time Total Time: 25 Total Timed Minutes: 25
--- NOTE | 2018-07-25 11:39 | RADIOLOGY REPORT (SQ) ---
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 TECHNIQUE: Axial images acquired through the brain without intravenous contrast. Images reviewed wi th bone, brain and subdural windows. Additional sagittal and coronal reconstructions were generated. Images stored on PACS. All CT scanners at this facility use dose modulation, iterative reconstruction, and/or weight based d osing when appropriate to reduce radiation dose to as low as reasonably achievable (ALARA). [facility]: Dose Right [facility]: CareDose [facility]: Dose Right [facility]: Teradose 4D [facility]: Osprey Spill Control RADIATION DOSE: CT Rad equipment meets quality standard of care and radiation dose reduction techniq ues were employed. CTDIvol: 48.6 mGy. DLP: 880 mGy-cm.mGy. LIMITATIONS: None. FINDINGS: VENTRICLES: Prominent. CEREBRUM: No masses. No hemorrhage. No midline shift. Old right frontal infarct. Areas of low den sity in the white matter most likely due to chronic micro-vascular ischemic change. No evidence for acute infarction. CEREBELLUM: No masses. No hemorrhage. No alteration of density. No evidence for acute infarction. EXTRAAXIAL SPACES: Age-related involutional change. No fluid collections. No masses. ORBITS AND GLOBE: No intra- or extraconal masses. Normal contour of globe without masses. CALVARIUM: No fracture. PARANASAL SINUSES: No fluid or mucosal thickening. SOFT TISSUES: No mass or hematoma. OTHER: No other significant finding. IMPRESSION: CHRONIC CHANGES OF ATROPHY AND MICROVASCULAR ISCHEMIA. NO ACUTE PROCESS. EVIDENCE OF ACUTE STROKE: NO. TECHNICAL DOCUMENTATION: JOB ID: [id number] Quality ID # [id number]: Final reports with documentation of one or more dose reduction techniques (e.g., Au tomated exposure control, adjustment of the mA and/or kV according to patient size, use of iterative reconstruction technique) 2010 [email or web address]- All Rights Reserved Reading location - IP/workstation name: [email or web address]
[2018-07-26] MEDS: LISINOPRIL 10 MG TABLET PO SCH (11:30)
[2018-07-26] MEDS: ENOXAPARIN SODIUM INJ 30 MG/0.3 ML DISP.SYRIN SUBCUT SCH (11:30)
[2018-07-26] MEDS: MEMANTINE HCL 10 MG TABLET PO SCH ×2 (11:30→23:07)
[2018-07-26] MEDS: METOPROLOL TARTRATE 50 MG TABLET PO SCH ×2 (11:31→23:07)
[2018-07-26] MEDS: FAMOTIDINE 20 MG TABLET PO SCH ×2 (11:32→23:07)
[2018-07-26] MEDS: DOCUSATE SODIUM 100 MG/10 ML UDC PO SCH ×2 (11:32→18:08)
[2018-07-26] MEDS: FUROSEMIDE 40 MG TABLET PO SCH ×2 (11:32→18:08)
--- NOTE | 2018-07-26 12:26 | PDOC PROGRESS REPORT ---
Subjective Progress Note for:: 07/26/18 Subjective:: 07/18/[id number]-eghc-old female with history of hypertension brought to the emergency room by the family members with complaints of change in mental status. She was seen last Wednesday with normal behavior and stepdaughter went to see the pt today and noticed the blinds are not open, she felt something is wrong she opened the dooe went into the house immediately stepped onto a pool of water , started calling her mom come to out of the restroom and found her mom at the doorstep of the bedroom with pants down and not properly wearing the clothes when questioned what happened , patient stating blankly at her, looking confused and agitated. So the stepdaughter called for help and during that time patient fell one time without injuring herself. And the family members also noticed patient is unable to following the instructions. They took the patient stepdaughters home and still found to be confused and agitated also. Did not notice any nausea vomiting diarrhea . No fever cough cold was reported. Appetite was poor. because of the confusion and agitation and anxiety family brought her to the emergency room for further evaluation. By the time i went to see the patient patient was in ER, mittens were placed because pt is pulled out the nasal cannula pulled out the IV lines so as a preventive measure hands are covered with mittens. Patient is unable to give a history at all except for laughing. Stepdaughter able to provide the information of what exactly happened. CT head was negative during the ER evaluation. Chest x-ray was also negative. Urine drug screen was negative. Patient lives alone family is requesting for placement. 07/19/2018 no acute events in the last 24 hours. She is still confused. But she is not agitated or anxious like yesterday. Afebrile. All the workup so far is negative. 07/20/2018-patient was confused and agitated yesterday evening may have a sundown syndrome. She was given metoprolol IV 1 dose last night because of the high blood pressure. Patient is afebrile. Patient is calm and comfortable in the bed. Still confused. may be She has dementia. 07/21/2018-she is comfortable in the sleeping in the bed not in distress. I discussed the plan of care with the nurse Mimi, no acute events in the last 24 hours. Patient able to feed herself. Patient was admitted with altered mental status stroke was ruled out. Altered mental status/encephalopathy probably secondary to advanced dementia. 07/22/2018 patient is comfortably sleeping in the bed not in distress. Patient potassium is 3.1 today she is on 40 mg p.o. potassium for the nurse told me patient is not taking it. Be going to give a K rider IV today. Blood pressure is 90/74 patient is asymptomatic as per the nurse. Waiting for approval from [facility] for placement. Patient is afebrile. No acute events in the last 24 hours. 07/23/2018 comfortably sleeping in the bed I spoke to the nurse Lisseth gillette, according to her patient is refusing to take her medications since yesterday. She has a low-grade fever in the last 24 hours T-max is 99.3. No acute events in the last 24 hours. Awaiting placement. 07/24/2018 no acute events in last 24 hours. Patient is afebrile. Still confused. Probably it is secondary to advanced dementia. She is waiting for the placement. T-max is 98. 07/25/2018-patient is comfortably sleeping in the bed nurse told me family concerned about patient having the right hand weakness. As per the family patient able to feed herself now she has difficulty holding the spoon under the also concerned about her speech and swallowing problems speech therapy was done this morning the recommended pured diet and nectar thick nectar thickened liquids. So far MRI of the brain and CT head carotid Doppler came back negative. I am going to arrange for CT head without contrast today. To rule out any stroke. Neurochecks are negative for stroke. 07/26/2018-this 83-year-old female admitted for altered mental status/acute encephalopathy. Altered mental status probably secondary to advanced dementia. Family is concerned about weakness of the right home they noticed yesterday. We did a CT head without contrast which was negative for acute changes. On examination today requested the patient left upper arm she able to lift it out but she unable to squeeze my hand. I am not suspecting any stroke. May be part of the generalized weakness. Maybe due to lacunar infarcts. Physical therapy w as done today waiting for the approval from [employer] for placement. Reason For Visit: ALTERED MENTAL STATUS Physical Exam Vital Signs: Temp Pulse Resp BP Pulse Ox 98.1 F 72 16 156/64 H 94 07/26/18 07:20 07/26/18 07:20 07/26/18 07:20 07/26/18 07:20 07/26/18 07:20 Intake & Output 07/25/18 07/26/18 07/27/18 06:59 06:59 06:59 Intake Total 275 350 Balance 275 350 Weight 67.9 kg 66.6 kg General appearance: PRESENT: no acute distress Head exam: PRESENT: atraumatic Eye exam: PRESENT: PERRLA Mouth exam: PRESENT: dry mucosa Neck exam: ABSENT: carotid bruit, JVD, lymphadenopathy, thyromegaly Respiratory exam: PRESENT: decreased breath sounds Cardiovascular exam: PRESENT: systolic murmur, tachycardia GI/Abdominal exam: PRESENT: normal bowel sounds, soft. ABSENT: distended, guarding, mass, organolmegaly, rebound, tenderness Neurological exam: PRESENT: alert, CN II-XII grossly intact, other - Patient is alert and awake but she is not communicative. Not in distress. Psychiatric exam: PRESENT: flat affect Results Laboratory Results: 07/25/18 06:14 07/25/18 06:19 07/18/18 07/18/18 07/18/18 11:25 11:25 19:58 Creatine Kinase 663 H 466 H CK-MB (CK-2) 13.20 H Troponin I 0.038 NT-Pro-B Natriuret Pep 07/19/18 07/22/18 07/25/18 05:10 05:19 06:19 Creatine Kinase 64 CK-MB (CK-2) Troponin I NT-Pro-B Natriuret Pep 3540 H 840 H Impressions: Head MRI 07/18/18 00:00 IMPRESSION: Limited due to extensive motion however no convincing evidence for an acute intracranial abnormality. 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 copyright 2011 [employer]- All Rights Reserved Chest X-Ray 07/18/18 10:37 IMPRESSION: Cardiomegaly without acute abnormality of the lungs in AP projection. Carotid Doppler Study 07/19/18 00:00 IMPRESSION: NO HEMODYNAMICALLY SIGNIFICANT STENOSIS. Head CT 07/25/18 00:00 IMPRESSION: CHRONIC CHANGES OF ATROPHY AND MICROVASCULAR ISCHEMIA. NO ACUTE PROCESS. EVIDENCE OF ACUTE STROKE: NO. Modified Barium Swallow 07/25/18 00:00 IMPRESSION: PROBABLE ASPIRATION WITH THIN BARIUM.PLEASE SEE SPEECH PATHOLOGIST REPORT FOR OTHER FINDINGS AND RECOMMENDATIONS. Assessment & Plan - Diagnosis (1) Altered mental status Qualifiers: Altered mental status type: unspecified Qualified Code(s): R41.82 - Altered mental status, unspecified Is this a current diagnosis for this admission?: Yes Plan: 07/18/2018-plan for the altered mental status he is to put her on I am ICU she is a full code aspiration, fall, seizure precautions were requested. MRI of the brain without contrast was requested. Neurochecks were requested. Patient was placed on Ativan 0.5 mg IV every 4-6 as needed for agitation. PT consult psychiatric social worker supervisor consult was requested. Altered mental status probably secondary to nonspecific causes. Elizondo's catheter was placed heart rate on IV fluids normal saline at 50 cc/h carotid Doppler was requested. Patient was placed on bedrest. pt is a full code. 07/19/2018 altered mental status/encephalopathy due to unknown etiology. CT head was negative MRI of the brain was negative carotid Doppler was negative and the blood work came back negative so far. Neurochecks are negative. Skull therapy consult was requested probably patient may need to go to a rehab facility. 07/20/2018 altered mental status/encephalopathy due to unknown etiology probably she has underlying dementia. Started on memantine 5 mg p.o. twice daily today. Patient is still confused and agitated. Probably is safe for her to go to [facility] facility. 07/21/2018-patient was admitted with altered mental status confusion/ encephalopathy most likely secondary to advanced dementia. Patient was started on memantine 5 mg p.o. twice a day. Patient is comfortably sleeping in the bed today. No complaints of anxiety or agitation. Patient was able to feed herself. plan is to place the pt in [facility]. 07/22/2018-patient is admitted with altered mental status/encephalopathy. In my opinion most likely secondary to underlying advanced dementia. As I mentioned above patient is on memantine 5 mg p.o. twice a day. Waiting for a [employer] approval for placement. 07/23/2018-patient has advanced dementia probably causing altered mental status/encephalopathy. Patient is refusing the medications and refusing to eat since yesterday. Hopefully family members will help her to take her medicatio ns. Patient lives alone now. We waiting for the placement. In the meantime we will continue the present management. CT head was negative for acute changes. 07/24/2018 patient was admitted with altered mental status/acute encephalopathy probably secondary to advanced dementia. She is on memantine 10 mg p.o. twice daily. Plan is to continue the present management. 07/25/2018- Patient was admitted with altered mental status/acute encephalopathy probably secondary to advanced dementia. Patient is presently on 10 mg of memantine twice a day. Plan is to continue the present management. Patient mental status is at her baseline. 07/26/2018-patient is admitted with altered mental status/acute encephalopathy likely secondary to advanced dementia. CT head MRI done both are negative for acute strokes. Presently she is on memantine 10 mg p.o. twice daily, the nurses are telling me she is sleeping all day. Plan is to cut down the memantine to 5 mg twice a day. (2) Hypertension Is this a current diagnosis for this admission?: Yes Plan: 07/18/2018-patient blood pressure is 185/72. Patient is on blood pressure medications at home we do not have that information. Started on lisinopril 10 mg p.o. daily amlodipine 5 mg p.o. daily. wiill do daily measurements of the blood pressures. 07/19/2018-blood pressure today is 182/73. Patient is presently on amlodipine 2.5 mg p.o. daily, lisinopril 10 mg p.o. daily, metoprolol 12.5 mg p.o. twice daily. IV fluids discontinued today. Amlodipine was discontinued patient was put back on nifedipine 60 mg p.o. twice a day. 07/20/2018 blood pressure today is 178/75. She is on lisinopril 10 mg daily nifedipine 60 mg p.o. twice daily. I increased the lisinopril to 40 mg p.o. daily. Going to close Franck monitor the blood pressure measurements. She is also on metoprolol 100 mg p.o. daily. 07/21/2018-blood pressure today is 158/75 improved compared to yesterday. Ada hernandez is presently on lisinopril 40 mg p.o. daily, nifedipine 60 mg p.o. twice a day, metoprolol 100 mg p.o. daily. Plan is to continue the present management. BNP was elevated at 3450, to start on Lasix 20 mg p.o. daily. 07/22/2018-blood pressure today is 90/74. I requested the nurse to check the juliet arnett blood pressure. Usually blood pressures are relatively high. If the blood pressure is low then will hold her blood pressure medications for today. 07/23/2018-patient's blood pressure today is 148/60 relatively controlled well with a heart rate of 79. Patient is presently on lisinopril 40 mg p.o. daily, nifedipine 60 mg p.o. twice a day, metoprolol 100 mg p.o. daily. Plan is to continue the present management. 07/24/2018 patient blood pressure today is 153/61. With heart rate of 81. On lisinopril 40 mg daily, nifedipine 60 mg twice a day, metoprolol 100 mg p.o. daily plan is to continue the present management. 07/25/2018-patient blood pressure today is 162/68 with heart rate of 75. We plan to switch the diet to pured diet with nectar thickened liquids. Procardia cannot be crushed so we we are plan to discontinue Procardia ,and patient is also on metoprolol extended release it was changed to Lopressor 50 mg twice a day so that it can be crushed and given to the patient. Lasix dose was increased from 20 mg twice a day to 40 mg twice a day. 07/26/2018-patient's blood pressure today 156//64 heart rate of 78. Patient has difficulty in swallowing the pills ,switched her medications to so that we can crush and give it to the patient. Patient is presently on Lopressor 50 mg twice daily lisinopril 40 mg daily Lasix 40 mg twice daily, nifedipine 60 mg daily. Plan is to continue the present management. 1 (3) Hypokalemia Is this a current diagnosis for this admission?: Yes (4) Chronic kidney disease (CKD) Is this a current diagnosis for this admission?: Yes Plan: 07/18/2018 admission creatinine is 1.88 previous creatinine 2 months ago was 1.57. Acute on chronic renal insufficiency probably secondary to prerenal status. She was started on IV fluids normal saline at 50 cc/h. 07/19/2018 admission creatinine is 1.88 and it came down to 1.37 today. Acute kidney injury is resolving. 1 ,019-patient admission creatinine is 1.88 improved to 1.39 with IV fluids. Acute kidney injury is resolving. 07/21/2018 creatinine at the time of admission is 1.88 it was improved to 1.02 today with IV fluids acute kidney injury probably prerenal is resolved. 07/22/2018-patient admission creatinine is 1.88. Today's labs indicate creatinine is 1.02. Acute kidney injury probably prerenal is resolved. Patient is off the IV fluids right now. 07/23/2018-patient's admission creatinine is 1.88 and it was 1.03 today. Acute kidney injury probably due to prerenal causes is resolved. 07/24/2018-patient creatinine today is 1.03. Acute kidney injury probably prere nal resolved. 07/25/2018-at the time of admission creatinine is 1.88 it is stable around 1.0 for the last 2 days, acute kidney injury is resolved. 07/26/2018-patient's creatinine is around 1.03. Acute kidney injury is resolved. (5) Rhabdomyolysis Is this a current diagnosis for this admission?: Yes (6) Smoker Is this a current diagnosis for this admission?: Yes (7) Dementia Is this a current diagnosis for this admission?: Yes Plan: 07/20/2018-patient may have dementia it may explain the confusion and agitation. She was started on memantine 5 mg p.o. twice daily today. Is to continue the present management. 07/21/2018-patient probably has advanced dementia contributing to altered mental status/encephalopathy. 07/22/2018-patient has advanced dementia on memantine 5 mg p.o. twice daily plan is to continue the present management. 07/23/2018 patient has advanced dementia she is on memantine 5 mg p.o. twice a day. Plan is to increase the dose to 10 mg twice a day. Waiting for the placement. 07/24/2018-dementia initially on memantine 5 mg p.o. twice a day dose was increased to 10 mg p.o. twice daily. No complications. Plan is to continue the present management. 07/25/2018-patient has advanced dementia. She was started on memantine 10 mg p.o. twice daily. Plan is to continue the present management. She is waiting for longterm placement. Physical therapy consult was requested, occupational therapy was requested. 07/26/2018-patient has advanced dementia. Patient is sleepy all day for the last couple of days as per the nurses. Plan is to decrease the memantine from 10 mg twice daily to 5 mg p.o. twice daily patient is also on Xanax 1 mg every 4 as needed I am going to decrease it 2.5 mg every 4 as needed. - Time Time Spent with patient: 15-24 minutes Medications reviewed and adjusted accordingly: Yes Anticipated discharge: SNF
[2018-07-26] MEDS ORDERED: LORAZEPAM INJ 2 MG/1 ML VIAL IV PRN (12:27)
[2018-07-27 06:21] LABS: ABSOLUTE EOSINOPHILS # (AUTO) 0.2 10^3/uL (0.0-0.6); ABSOLUTE LYMPHOCYTES (AUTO) 2.3 10^3/uL (0.5-4.7); ABSOLUTE MONOCYTES (AUTO) 0.6 10^3/uL (0.1-1.4); BASOPHILS % (AUTO) 0.5 % (0-2); EOSINOPHILS % (AUTO) 2.9 % (0-6); HEMATOCRIT 35.7 % (36.0-47.0); HEMOGLOBIN 12.1 g/dL (12.0-15.5); LYMPHOCYTES % (AUTO) 28.6 % (13-45); MEAN CORPUSCULAR VOLUME 80 fl (80-97); MONOCYTES % (AUTO) 7.1 % (3-13); PLATELET COUNT 274 10^3/uL (150-450); RED BLOOD COUNT 4.49 10^6/uL (3.72-5.28); RED CELL DISTRIBUTION WIDTH 15.7 % (11.5-14.0); SEGMENTED NEUTROPHILS % (AUTO) 60.9 % (42-78); TOTAL CELLS COUNTED % (AUTO) 100 %; WHITE BLOOD COUNT 8.2 10^3/uL (4.0-10.5)
[2018-07-27 06:44] LABS: ALANINE AMINOTRANSFERASE 34 U/L (9-52); ALBUMIN 3.3 g/dL (3.5-5.0); ALKALINE PHOSPHATASE 87 U/L (38-126); ANION GAP 9 (5-19); ASPARTATE AMINO TRANSFERASE 21 U/L (14-36); BILIRUBIN,DIRECT 0.2 mg/dL (0.0-0.4); BILIRUBIN,TOTAL 0.5 mg/dL (0.2-1.3); BLOOD UREA NITROGEN 34 mg/dL (7-20); CALCIUM 9.5 mg/dL (8.4-10.2); CARBON DIOXIDE 28 mmol/L (22-30); CHLORIDE 109 mmol/L (98-107); GLUCOSE 98 mg/dL (75-110); POTASSIUM 4.1 mmol/L (3.6-5.0); SODIUM 145.8 mmol/L (137-145); TOTAL PROTEIN 6.4 g/dL (6.3-8.2)
[2018-07-27] MEDS: MEMANTINE HCL 10 MG TABLET PO SCH ×2 (12:40→22:46)
[2018-07-27] MEDS: LISINOPRIL 10 MG TABLET PO SCH (12:40)
[2018-07-27] MEDS: FAMOTIDINE 20 MG TABLET PO SCH ×2 (12:40→22:46)
[2018-07-27] MEDS: DOCUSATE SODIUM 100 MG/10 ML UDC PO SCH ×2 (12:40→17:29)
[2018-07-27] MEDS: METOPROLOL TARTRATE 50 MG TABLET PO SCH ×2 (12:40→22:46)
[2018-07-27] MEDS: ENOXAPARIN SODIUM INJ 30 MG/0.3 ML DISP.SYRIN SUBCUT SCH (12:41)
[2018-07-27] MEDS: FUROSEMIDE 40 MG TABLET PO SCH ×2 (12:41→17:29)
--- NOTE | 2018-07-27 12:52 | PDOC PROGRESS REPORT ---
Subjective Progress Note for:: 07/27/18 Subjective:: Patient is seen resting in bed. She does awaken to her name. She does not answer questions at this time. Her stepdaughter is at the bedside as well. She states she is been extremely confused at home. She is not safe to live by herself any longer since her father . This is an 83-year-old female admitted for altered mental status/acute encephalopathy. Altered mental status probably secondary to advanced dementia. Family is concerned about weakness of the right home they noticed yesterday. We did a CT head without contrast which was negative for acute changes. On examination today requested the patient left upper arm she able to lift it out b ut she unable to squeeze my hand. I am not suspecting any stroke. May be part of the generalized weakness. Maybe due to lacunar infarcts. Physical therapy was done today waiting for the approval from [facility] for placement Reason For Visit: ALTERED MENTAL STATUS Physical Exam Vital Signs: Temp Pulse Resp BP Pulse Ox 98.8 F 69 18 154/57 H 96 07/27/18 07:19 07/27/18 07:19 07/27/18 07:19 07/27/18 07:19 07/27/18 07:19 Intake & Output 07/26/18 07/27/18 07/28/18 06:59 06:59 06:59 Intake Total 350 250 Balance 350 250 Weight 66.6 kg 66.8 kg General appearance: PRESENT: no acute distress, well-developed, well-nourished Head exam: PRESENT: atraumatic, normocephalic Eye exam: PRESENT: conjunctiva pink, EOMI, PERRLA. ABSENT: scleral icterus Ear exam: PRESENT: normal external ear exam Teeth exam: PRESENT: poor dentation Neck exam: ABSENT: carotid bruit, JVD, lymphadenopathy, thyromegaly Respiratory exam: PRESENT: clear to auscultation marija. ABSENT: rales, rhonchi, wheezes Cardiovascular exam: PRESENT: RRR. ABSENT: diastolic murmur, rubs, systolic murmur Pulses: PRESENT: normal dorsalis pedis pul Vascular exam: PRESENT: normal capillary refill GI/Abdominal exam: PRESENT: normal bowel sounds, soft. ABSENT: distended, guarding, mass, organolmegaly, rebound, tenderness Rectal exam: PRESENT: deferred Extremities exam: PRESENT: full ROM. ABSENT: calf tenderness, clubbing, pedal edema Musculoskeletal exam: PRESENT: ambulatory Neurological exam: PRESENT: alert, altered, awake, oriented to person, CN II-XII grossly intact. ABSENT: motor sensory deficit Psychiatric exam: PRESENT: flat affect Focused psych exam: PRESENT: delusional Skin exam: PRESENT: dry, intact, warm. ABSENT: cyanosis, rash Results Laboratory Results: 07/27/18 05:10 07/27/18 05:10 07/27/18 07/27/18 05:10 05:10 WBC 8.2 RBC 4.49 Hgb 12.1 Hct 35.7 L MCV 80 MCH 27.0 MCHC 34.0 RDW 15.7 H Plt Count 274 Seg Neutrophils % 60.9 Lymphocytes % 28.6 Monocytes % 7.1 Eosinophils % 2.9 Basophils % 0.5 Absolute Neutrophils 5.0 Absolute Lymphocytes 2.3 Absolute Monocytes 0.6 Absolute Eosinophils 0.2 Absolute Basophils 0.0 Sodium 145.8 H Potassium 4.1 Chloride 109 H Carbon Dioxide 28 Anion Gap 9 BUN 34 H Creatinine 1.24 Est GFR ( Amer) 50 L Est GFR (Non-Af Amer) 41 L Glucose 98 Calcium 9.5 Magnesium 2.0 Total Bilirubin 0.5 AST 21 ALT 34 Alkaline Phosphatase 87 Total Protein 6.4 Albumin 3.3 L 07/18/18 07/18/18 07/18/18 11:25 11:25 19:58 Creatine Kinase 663 H 466 H CK-MB (CK-2) 13.20 H Troponin I 0.038 NT-Pro-B Natriuret Pep 07/19/18 07/22/18 07/25/18 05:10 05:19 06:19 Creatine Kinase 64 CK-MB (CK-2) Troponin I NT-Pro-B Natriuret Pep 3540 H 840 H Impressions: Head MRI 07/18/18 00:00 IMPRESSION: Limited due to extensive motion however no convincing evidence for an acute intracranial abnormality. 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 copyright 2011 [employer]- All Rights Reserved Chest X-Ray 07/18/18 10:37 IMPRESSION: Cardiomegaly without acute abnormality of the lungs in AP projection. Carotid Doppler Study 07/19/18 00:00 IMPRESSION: NO HEMODYNAMICALLY SIGNIFICANT STENOSIS. Head CT 07/25/18 00:00 IMPRESSION: CHRONIC CHANGES OF ATROPHY AND MICROVASCULAR ISCHEMIA. NO ACUTE PROCESS. EVIDENCE OF ACUTE STROKE: NO. Modified Barium Swallow 07/25/18 00:00 IMPRESSION: PROBABLE ASPIRATION WITH THIN BARIUM.PLEASE SEE SPEECH PATHOLOGIST REPORT FOR OTHER FINDINGS AND RECOMMENDATIONS. Assessment & Plan - Diagnosis (1) Altered mental status Qualifiers: Altered mental status type: unspecified Qualified Code(s): R41.82 - Altered mental status, unspecified Is this a current diagnosis for this admission?: Yes Plan: Patient is admitted with altered mental status/acute encephalopathy likely secondary to advanced dementia. CT head MRI done both are negative for acute strokes. Presently she is on memantine 10 mg p.o. twice daily, the nurses are telling me she is sleeping all day. Plan is to cut down the memantine to 5 mg twice a day. (2) Dementia Is this a current diagnosis for this admission?: Yes Plan: As above #1 (3) Chronic kidney disease (CKD) Qualifiers: Chronic kidney disease stage: stage 3 (moderate) Qualified Code(s): N18.3 - Chronic kidney disease, stage 3 (moderate) Is this a current diagnosis for this admission?: Yes Plan: Avoid nephrotoxic medications and dosages. (4) Dysphagia Qualifiers: Dysphagia type: oropharyngeal phase Qualified Code(s): R13.12 - Dysphagia, oropharyngeal phase Is this a current diagnosis for this admission?: Yes Plan: Speech therapy is following. Diet has been modified. (5) Hypertension Qualifiers: Hypertension type: essential hypertension Qualified Code(s): I10 - Essential (primary) hypertension Is this a current diagnosis for this admission?: Yes Plan: She is presently normotensive on current medications. (6) Smoker Is this a current diagnosis for this admission?: Yes Plan: No signs of nicotine withdrawal. - Time Time Spent with patient: 25-34 minutes Total Critical Time (Minutes): 20 Medications reviewed and adjusted accordingly: Yes Anticipated discharge: SNF Within: when bed available - Inpatient Certification Based on my medical assessment, after consideration of the patient's comorbidi ties, presenting symptoms, or acuity I expect that the services needed warrant INPATIENT care.: Yes I certify that my determination is in accordance with my understanding of [facility] requirements for reasonable and necessary INPATIENT services [42 CFR 412.3e].: Yes Medical Necessity: Significant Comorbidiites Make Outpatient Treatment Too Risky, Need for Neurological Checks, Risk of Complication if Not Cared For in Hospital
--- NOTE | 2018-07-28 09:26 | PDOC TRANSFER SUMMARY ---
General - Admit/Disc Date/PCP Admission Date/Primary Care Provider: 07/18/18 15:27 Discharge Date: 07/28/18 - Discharge Diagnosis (1) Altered mental status Is this a current diagnosis for this admission?: Yes Summary: Patient with history of dementia, old lacunar infarcts with worsening confusion. MRI, CT ,carotid duplex all were negative for new disease (2) Dementia Is this a current diagnosis for this admission?: Yes Summary: As above, continue namenda (3) Chronic kidney disease (CKD) Is this a current diagnosis for this admission?: Yes Summary: Creatinine stable (4) Dysphagia Is this a current diagnosis for this admission?: Yes Summary: Dietary recommendations per speech therapy (5) Hypertension Is this a current diagnosis for this admission?: Yes Summary: Normotensive on current medications (6) Smoker Is this a current diagnosis for this admission?: Yes Summary: Continue nicotine patch - Additional Information Resuscitation Status: Full Code Discharge Diet: Regular, Other (Comments) - mechanical soft Discharge Activity: Activity As Tolerated Prescriptions: Lisinopril [Zestril] 40 mg PO DAILY #30 tablet Home Medications: Acetaminophen [Tylenol 325 mg Tablet] 650 mg PO Q4HP PRN tablet 07/28/18 Bisacodyl [Dulcolax 10 mg Supp.rect] 10 mg [place] DAILYP PRN supp.rect 07/28/18 Docusate Sodium [Colace Udc 100 mg/10 ml Oral Soln] 100 mg PO BID udc 07/28/18 Famotidine [Pepcid 20 mg Tablet] 20 mg PO Q12 tablet 07/28/18 Lisinopril [Zestril] 40 mg PO DAILY #30 tablet 07/28/18 Memantine HCl [Namenda 10 mg Tablet] 5 mg PO Q12 tablet 07/28/18 Nicotine [Nicoderm 14 mg/24 Hr Transdermal Patch] 1 each TD DAILYP PRN patch.td24 07/28/18 History of Present Illness Admission Date/PCP: 07/18/18 15:27 Patient complains of: Worsening confusion History of Present Illness: LLOYD SOL is a 83 year old female with history of hypertension brought to the emergency room by the family members with complaints of change in mental status. She was seen last Wednesday with normal behavior and stepdaughter went to see the pt today and noticed the blinds are not open, she felt something is wrong she opened the door and went into the house and immediately stepped into a pool of wate. Daughter started calling her mom come to out of the restroom and found her mom at the doorstep of the bedroom with pants down . The patient was staring blankly at her, looking confused and agitated. So the stepdaughter called for help and during that time patient fell one time without injuring herself. She was unable to follow any instructions. Did not notice any nausea, vomiting or diarrhea . They denied any upper respiratory infections recently. Appetite was poor. Because of the confusion and agitation and anxiety family brought her to the emergency room for further evaluation. Stepdaughter able to provide the information of what exactly happened. CT head was negative during the ER evaluation. Chest x-ray was also negative. Urine drug screen was negative. Patient lives alone family is requesting for placement. She was referred to the hospitalist service for admission Hospital Course Hospital Course: Patient was admitted to the hospitalist service on telemetry. She underwent an MRI of the head which showed old lacunar infarcts and small vessel disease but no new infarcts. Carotid duplex were done which showed no significant changes either. She was seen by speech therapy they recommended putting her medications in ice cream or applesauce crushed. She was seen by physical therapy. They rec ommend skilled rehab post discharge. Takes 2 assist for her to ambulate be moved to the chair. Her stepdaughter is her medical power of assistant attorney general. She was diuresed initially. Diuretics were stopped. He appears euvolemic at the present time. Blood pressures been well controlled. Will continue current medications she will follow-up with primary care provider at [facility]. She will be transferred to [facility] today. Physical Exam Vital Signs: Temp Pulse Resp BP Pulse Ox 98.3 F 72 20 178/70 H 93 07/28/18 08:00 07/28/18 08:00 07/28/18 08:00 07/28/18 08:00 07/28/18 08:00 Intake & Output 07/27/18 07/28/18 07/29/18 06:59 06:59 06:59 Intake Total 250 100 Balance 250 100 Weight 66.8 kg 66.4 kg General appearance: PRESENT: no acute distress, well-developed, well-nourished Head exam: PRESENT: atraumatic, normocephalic Eye exam: PRESENT: conjunctiva pink, EOMI, PERRLA. ABSENT: scleral icterus Ear exam: PRESENT: normal external ear exam Mouth exam: PRESENT: dry mucosa Teeth exam: PRESENT: edentulous Neck exam: ABSENT: carotid bruit, JVD, lymphadenopathy, thyromegaly Respiratory exam: PRESENT: clear to auscultation marija. ABSENT: rales, rhonchi, wheezes Cardiovascular exam: PRESENT: RRR. ABSENT: diastolic murmur, rubs, systolic murmur Pulses: PRESENT: normal dorsalis pedis pul GI/Abdominal exam: PRESENT: normal bowel sounds, soft. ABSENT: distended, guarding, mass, organolmegaly, rebound, tenderness Rectal exam: PRESENT: deferred Extremities exam: PRESENT: full ROM. ABSENT: calf tenderness, clubbing, pedal edema Musculoskeletal exam: PRESENT: full ROM, normal inspection Neurological exam: PRESENT: alert, awake, oriented to person, CN II-XII grossly intact. ABSENT: motor sensory deficit Psychiatric exam: PRESENT: flat affect Skin exam: PRESENT: dry, intact, warm. ABSENT: cyanosis, rash Results Laboratory Results: 07/27/18 05:10 07/27/18 05:10 07/18/18 07/18/18 07/18/18 11:25 11:25 19:58 Creatine Kinase 663 H 466 H CK-MB (CK-2) 13.20 H Troponin I 0.038 NT-Pro-B Natriuret Pep 07/19/18 07/22/18 07/25/18 05:10 05:19 06:19 Creatine Kinase 64 CK-MB (CK-2) Troponin I NT-Pro-B Natriuret Pep 3540 H 840 H Impressions: Head MRI 07/18/18 00:00 IMPRESSION: Limited due to extensive motion however no convincing evidence for an acute intracranial abnormality. 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 copyright 2011 [employer]- All Rights Reserved Chest X-Ray 07/18/18 10:37 IMPRESSION: Cardiomegaly without acute abnormality of the lungs in AP projection. Carotid Doppler Study 07/19/18 00:00 IMPRESSION: NO HEMODYNAMICALLY SIGNIFICANT STENOSIS. Head CT 07/25/18 00:00 IMPRESSION: CHRONIC CHANGES OF ATROPHY AND MICROVASCULAR ISCHEMIA. NO ACUTE PROCESS. EVIDENCE OF ACUTE STROKE: NO. Modified Barium Swallow 07/25/18 00:00 IMPRESSION: PROBABLE ASPIRATION WITH THIN BARIUM.PLEASE SEE SPEECH PATHOLOGIST REPORT FOR OTHER FINDINGS AND RECOMMENDATIONS. Transfer Plan - Disposition Transfer Plan: [facility] - Time Spent with Patient Time spent with patient: Less than 30 Minutes Qualifiers - * PATIENT BEING DISCHARGED WITH ANY OF THE FOLLOWING DIAGNOSIS: No Plan Discharge Plan: [facility] Time Spent: Less than 30 Minutes
[2018-07-28] MEDS: MEMANTINE HCL 10 MG TABLET PO SCH (09:55)
[2018-07-28] MEDS: LISINOPRIL 10 MG TABLET PO SCH (09:55)
[2018-07-28] MEDS: METOPROLOL TARTRATE 50 MG TABLET PO SCH (09:55)
[2018-07-28] MEDS: DOCUSATE SODIUM 100 MG/10 ML UDC PO SCH (09:55)
[2018-07-28] MEDS: FAMOTIDINE 20 MG TABLET PO SCH (09:56)
[2018-07-28] MEDS: ENOXAPARIN SODIUM INJ 30 MG/0.3 ML DISP.SYRIN SUBCUT SCH (09:56)
[2018-07-28 16:20] VITALS: BP 148/57
== END 2018-07-28 17:53 | DRG 684 ==
LOC: ER 10:34 → EH 15:27 → OBSVTOIN 15:27 → 3S 19:30
PROVIDERS: ADMIT Internal Medicine; ATTEND Internal Medicine
DX: N17.9 Acute kidney failure, unspecified (principal); I12.9 Hypertensive chronic kidney disease with stage 1 through stage 4 chronic kidney disease, or unspecified chronic kidney disease; F03.90 Unspecified dementia, unspecified severity, without behavioral disturbance, psychotic disturbance, mood disturbance, and anxiety; Z60.2 Problems related to living alone; F41.9 Anxiety disorder, unspecified; E87.6 Hypokalemia; T79.6XXA Traumatic ischemia of muscle, initial encounter; W19.XXXA Unspecified fall, initial encounter; F17.210 Nicotine dependence, cigarettes, uncomplicated; N18.3 Chronic kidney disease, stage 3 (moderate); R13.12 Dysphagia, oropharyngeal phase; Z91.81 History of falling; Z78.1 Physical restraint status; Z23 Encounter for immunization; Z79.899 Other long term (current) drug therapy
CPT/HCPCS: 36415; 51701; 70450; 70551; 71045; 74230; 80053; 80061; 80307; 81001; 82550; 82553; 82962; 83036; 83735; 83880; 84443; 84484; 85025; 85610; 85730; 87040; 87086; 90686; 93005; 93010; 93306; 93880; 99285; J1650; J2060; J3480; J7030; S0028

== ENCOUNTER 2019-05-11 12:38 | Emergency (ER) | payer MEDICARE, MEDICAID ==
[2019-05-11 14:25] LABS: ABSOLUTE EOSINOPHILS # (AUTO) 0.2 10^3/uL (0.0-0.6); ABSOLUTE LYMPHOCYTES (AUTO) 2.1 10^3/uL (0.5-4.7); ABSOLUTE MONOCYTES (AUTO) 0.4 10^3/uL (0.1-1.4); ABSOLUTE NEUT (AUTO) 5.2 10^3/uL (1.7-8.2); BASOPHILS % (AUTO) 0.5 % (0-2); EOSINOPHILS % (AUTO) 2.3 % (0-6); HEMATOCRIT 38.2 % (36.0-47.0); HEMOGLOBIN 12.8 g/dL (12.0-15.5); LYMPHOCYTES % (AUTO) 26.4 % (13-45); MEAN CORPUSCULAR HEMOGLOBIN 27.1 pg (27.0-33.4); MEAN CORPUSCULAR HGB CONC 33.6 g/dL (32.0-36.0); MEAN CORPUSCULAR VOLUME 81 fl (80-97); MONOCYTES % (AUTO) 5.5 % (3-13); PLATELET COUNT 223 10^3/uL (150-450); RED BLOOD COUNT 4.74 10^6/uL (3.72-5.28); RED CELL DISTRIBUTION WIDTH 15.3 % (11.5-14.0); SEGMENTED NEUTROPHILS % (AUTO) 65.3 % (42-78); TOTAL CELLS COUNTED % (AUTO) 100 %
[2019-05-11 14:35] LABS: ALBUMIN 3.6 g/dL (3.5-5.0); ALKALINE PHOSPHATASE 81 U/L (38-126); ANION GAP 7 (5-19); ASPARTATE AMINO TRANSFERASE 20 U/L (14-36); BILIRUBIN,DIRECT 0.1 mg/dL (0.0-0.4); BILIRUBIN,TOTAL 0.5 mg/dL (0.2-1.3); BLOOD UREA NITROGEN 23 mg/dL (7-20); CALCIUM 9.6 mg/dL (8.4-10.2); CARBON DIOXIDE 32 mmol/L (22-30); CHLORIDE 102 mmol/L (98-107); GLUCOSE 88 mg/dL (75-110); POTASSIUM 4.4 mmol/L (3.6-5.0)
[2019-05-11] MEDS ORDERED: HYDRALAZINE HCL INJ/PF 20 MG/1 ML SDV IV ONE (15:48)
[2019-05-11 16:00] LABS: APPEARANCE,URINE CLEAR; BILIRUBIN,URINE NEGATIVE (NEGATIVE); COLOR,URINE YELLOW; GLUCOSE, URINE NEGATIVE (NEGATIVE); KETONES,URINE NEGATIVE (NEGATIVE); LEUKOCYTE ESTERASE,URINE NEGATIVE (NEGATIVE); NITRITE,URINE NEGATIVE (NEGATIVE); PROTEIN,URINE 100 mg/dL (NEGATIVE); UROBILINOGEN,URINE NEGATIVE mg/dL (<2.0)
[2019-05-11 17:42] VITALS: BP 152/63
--- NOTE | 2019-05-11 18:39 | ER Document Report ---
Entered by DEVANG MAJOR SCRIBE 05/11/19 1357 Acting as scribe for:MINOR SCHWAB MD ED General - General Chief Complaint: Facial Swelling Stated Complaint: POSSIBLE ALLERGIC REACTION Time Seen by Provider: 05/11/19 13:40 Notes: Patient is an 83 year old female arriving via EMS to the emergency department today from her [place] [facility] [place], [facility], for upper lip swelling. Family member at bedside states that she does not know when this swelling began. Relative does mention that the patient had a similar episode of lip swelling about x3 years ago and she is not sure what caused this at that time. Patient does take Lisinopril. TRAVEL OUTSIDE OF THE [place] IN LAST 30 DAYS: No - Related Data Allergies/Adverse Reactions: No Known Allergies Allergy (Verified 06/07/18 13:38) Home Medications: Lisinopril, Allopurinol, Celexa, Prednisone, Colchcine, Docusate Sodium, Namenda, Pepcid, Dulcolax, Tramadol Past Medical History - General Information source: Patient - Social History Smoking Status: Current Every Day Smoker Cigarette use (# per day): Yes Chew tobacco use (# tins/day): No Frequency of alcohol use: None Drug Abuse: None [facility] with[facility] Family History: Reviewed & Not Pertinent Patient has suicidal ideation: No Patient has homicidal ideation: No - Past Medical History Cardiac Medical History: Reports: Hx Hypertension - Lisinopril - Immunizations Hx Diphtheria, Pertussis, Tetanus Vaccination: Yes Review of Systems - Review of Systems Constitutional: No symptoms reported EENT: See HPI, Mouth swelling - upper lip Cardiovascular: No symptoms reported Respiratory: No symptoms reported Gastrointestinal: No symptoms reported Genitourinary: No symptoms reported Female Genitourinary: No symptoms reported Musculoskeletal: No symptoms reported Skin: No symptoms reported Hematologic/Lymphatic: No symptoms reported Neurological/Psychological: No symptoms reported -: Yes All other systems reviewed and negative Physical Exam - Vital signs Vitals: Temp Pulse Resp BP Pulse Ox 98.7 F 67 12 208/94 H 97 05/11/19 12:40 05/11/19 12:40 05/11/19 12:40 05/11/19 12:40 05/11/19 12:40 - Notes Notes: Physical Exam: General: Alert, appears well. HEENT: Normocephalic. Atraumatic. PERRL. Extraocular movements intact. Oropharynx clear. No throat swelling, posterior pharynx swelling, tongue swelling, or uvula swelling. Upper lip is swollen, right slightly larger than left. Area is not firm or tender. Neck: Supple. Non-tender. Respiratory: No respiratory distress. Clear and equal breath sounds bilaterally. Cardiovascular: Regular rate and rhythm. Abdominal: Normal Inspection. Non-tender. No distension. Normal Bowel Sounds. Back: No gross abnormalities. Extremities: Moves all four extremities. Upper extremities: Normal inspection. Normal ROM. Lower extremities: Normal inspection. No edema. Normal ROM. Neurological: Dementia. Normal speech. Psychological: Normal affect. Normal Mood. Skin: Warm. Dry. Normal color. Course - Re-evaluation Re-evalutation: 05/11/19 16:56 The patient's blood pressure was running in the 1 9200 systolic range this afternoon despite receiving her regular medications [place]. She was given hydralazine 20 mg IV and her pressure came down into the 150 systolic range. She will be discharged with instructions to stop lisinopril as this may be the reason for the swollen lip. She will be prescribed hydralazine 50 mg every 8 hours and to follow-up with her primary care provider to decide about w hat blood pressure medication to use on a permanent basis. - Vital Signs Vital signs: Temp Pulse Resp BP Pulse Ox 98.2 F 67 18 152/63 H 98 05/11/19 17:31 05/11/19 12:40 05/11/19 16:33 05/11/19 17:31 05/11/19 17:31 - Laboratory Result Diagrams: 05/11/19 12:47 05/11/19 12:47 Laboratory results interpreted by me: 05/11/19 05/11/19 05/11/19 12:47 12:47 15:35 RDW 15.3 H Carbon Dioxide 32 H BUN 23 H Est GFR ( Amer) 57 L Est GFR (MDRD) Non-Af 47 L Urine Protein 100 H Discharge - Discharge Clinical Impression: Angioedema Qualifiers: Encounter type: initial encounter Qualified Code(s): T78.3XXA - Angioneurotic edema, initial encounter High blood pressure disorder Qualifiers: Hypertension type: essential hypertension Qualified Code(s): I10 - Essential (primary) hypertension Condition: Stable Disposition: HOME, SELF-CARE Additional Instructions: Angioedema Angioedema is an allergic swelling of the soft tissues of the body. The lips and mouth are most commonly involved. Medicication allergy is a common cause, especially LUZ MARINA inhibitor medicine (used for blood pressure control). Food, even something you've eaten frequently, can cause angioedema. In many cases it's not obvious what caused the swelling. Acute treatment may include adrenalin and antihistamines. If the cause is known, you must avoid this food or medicine in the future. If angioedema affects your air passages, it can be life-threatening. Return at once if you develop shortness of breath, faintness, severe pain, inability to swallow, or if swelling worsens.swelling worsens. Stop taking the Lisinopril. Start taking the Hydralazine as prescribed to this evening. Follow-up with your primary care provider tomorrow to discuss long-term management of your blood pressure. RETURN TO THE EMERGENCY ROOM IF ANY NEW OR WORSENING SYMPTOMS. Prescriptions: Hydralazine HCl [Apresoline 50 mg Tablet] 50 mg PO Q6 #30 tablet Scribe Attestation: 05/11/19 15:44 I personally performed the services described in the documentation, reviewed and edited the documentation which was dictated to the scribe in my presence, and it accurately records my words and actions. I personally performed the services described in the documentation, reviewed and edited the documentation which was dictated to the scribe in my presence, and it accurately records my words and actions.
== END 2019-05-11 17:43 | disposition home or self-care (01) ==
LOC: ER 12:38
DX: T78.3XXA Angioneurotic edema, initial encounter (principal); F17.210 Nicotine dependence, cigarettes, uncomplicated; I10 Essential (primary) hypertension; Z79.52 Long term (current) use of systemic steroids; Z79.899 Other long term (current) drug therapy; Z79.891 Long term (current) use of opiate analgesic
CPT/HCPCS: 36415; 85025; 80053; 81001; J0360

== ENCOUNTER 2020-01-29 14:43 | Emergency (ER) | payer MEDICARE ==
--- NOTE | 2020-01-29 15:17 | RADIOLOGY REPORT (SQ) ---
EXAM DESCRIPTION: CHEST SINGLE VIEW IMAGES COMPLETED DATE/TIME: 01/29/2020 3:02 pm REASON FOR STUDY: bed 2 stroke alert COMPARISON: 07/18/2018 EXAM PARAMETERS: NUMBER OF VIEWS: One view. TECHNIQUE: Single frontal radiographic view of the chest acquired. RADIATION DOSE: NA LIMITATIONS: None. FINDINGS: LUNGS AND PLEURA: No opacities, masses or pneumothorax. No pleural effusion. MEDIASTINUM AND HILAR STRUCTURES: Slight fullness along the right upper mediastinal border is unchang ed and may represent tortuous great vessels. HEART AND VASCULAR STRUCTURES: Heart normal in size. Normal vasculature. BONES: No acute findings. HARDWARE: None in the chest. OTHER: No other significant finding. IMPRESSION: NO ACUTE RADIOGRAPHIC FINDING IN THE CHEST. TECHNICAL DOCUMENTATION: JOB ID: [id number] 2010 [employer]- All Rights Reserved Reading location - IP/workstation name: [email or web address]
[2020-01-29 15:20] LABS: ABSOLUTE EOSINOPHILS # (AUTO) 0.2 10^3/uL (0.0-0.6); ABSOLUTE LYMPHOCYTES (AUTO) 1.7 10^3/uL (0.5-4.7); ABSOLUTE MONOCYTES (AUTO) 0.6 10^3/uL (0.1-1.4); BASOPHILS % (AUTO) 0.6 % (0-2); EOSINOPHILS % (AUTO) 3.1 % (0-6); HEMATOCRIT 36.5 % (36.0-47.0); HEMOGLOBIN 12.3 g/dL (12.0-15.5); LYMPHOCYTES % (AUTO) 22.3 % (13-45); MEAN CORPUSCULAR HEMOGLOBIN 27.6 pg (27.0-33.4); MEAN CORPUSCULAR HGB CONC 33.8 g/dL (32.0-36.0); MEAN CORPUSCULAR VOLUME 82 fl (80-97); MONOCYTES % (AUTO) 7.4 % (3-13); PLATELET COUNT 211 10^3/uL (150-450); RED BLOOD COUNT 4.47 10^6/uL (3.72-5.28); RED CELL DISTRIBUTION WIDTH 15.3 % (11.5-14.0); SEGMENTED NEUTROPHILS % (AUTO) 66.6 % (42-78); TOTAL CELLS COUNTED % (AUTO) 100 %; WHITE BLOOD COUNT 7.4 10^3/uL (4.0-10.5)
[2020-01-29] MEDS ORDERED: LABETALOL HCL INJ 20 MG/4 ML DISP.SYRIN IV ONE ×3 (15:21→16:31)
--- NOTE | 2020-01-29 15:25 | RADIOLOGY REPORT (SQ) ---
EXAM DESCRIPTION: CTA HEAD IMAGES COMPLETED DATE/TIME: 01/29/2020 3:00 pm REASON FOR STUDY: bed 2 stroke alert COMPARISON: None. TECHNIQUE: Axial images acquired through the brain without and with intravenous contrast. Images re viewed with bone, brain and subdural windows. Additional sagittal and coronal reconstructions were g enerated. Images stored on PACS. CT angio [place] of [place] was performed. Thin section postcontrast CT images were reviewed with maxim um intensity projected images of the [place] of [place] in multiple orientations. All CT scanners at this facility use dose modulation, iterative reconstruction, and/or weight based d osing when appropriate to reduce radiation dose to as low as reasonably achievable (ALARA). [facility]: Dose Right [facility]: CareDose [facility]: Dose Right [facility]: Teradose 4D [facility]: [employer] CONTRAST TYPE AND DOSE: 70 mL Omnipaque 350 RENAL FUNCTION: Not performed. RADIATION DOSE: CT Rad equipment meets quality standard of care and radiation dose reduction techniq ues were employed. CTDIvol: 53.2 mGy. DLP: 1044 mGy-cm.. LIMITATIONS: None. FINDINGS: VENTRICLES: Ventricles are prominent consistent with generalize atrophy. CEREBRUM: No masses. No hemorrhage. No midline shift. No evidence for acute infarction. There is d ecreased attenuation throughout the periventricular subcortical white matter consistent with small ve ssel disease. No evidence of an acute intracranial event. CEREBELLUM: Areas of encephalomalacia consistent with old infarcts. No acute findings. EXTRA-AXIAL SPACES: No fluid collections. No enhancing lesions. ORBITS AND GLOBE: No intra- or extraconal masses. Normal contour of globe without masses. CALVARIUM: No fracture. PARANASAL SINUSES: No fluid or mucosal thickening. SOFT TISSUES: No mass or hematoma. OTHER: No other significant finding. CTA COW: [place] OF [place]: The anterior, middle, posterior cerebral arteries are all patent. No evidence of a neurysm or focal stenosis. POSTERIOR CIRCULATION: The distal vertebral arteries are patent as is the basilar artery. No aneurysm . OTHER: No other significant finding. IMPRESSION: 1. Diffuse cerebral atrophy and small-vessel ischemic changes. Old right frontal lobe i nfarct. 2. No CTA evidence of focal stenosis aneurysm or vessel occlusion. EVIDENCE OF ACUTE STROKE: NO. TECHNICAL DOCUMENTATION: JOB ID: [id number] Quality ID # [id number]: Final reports with documentation of one or more dose reduction techniques (e.g., Au tomated exposure control, adjustment of the mA and/or kV according to patient size, use of iterative reconstruction technique) 2010 [employer]- All Rights Reserved Reading location - IP/workstation name: [email or web address]
--- NOTE | 2020-01-29 15:25 | RADIOLOGY REPORT (SQ) ---
EXAM DESCRIPTION: CTA NECK IMAGES COMPLETED DATE/TIME: 01/29/2020 3:00 pm REASON FOR STUDY: STROKE ALERT COMPARISON: None. TECHNIQUE: Axial dynamic scanning technique with dynamic contrast enhancement through the extra-aircraft armorer nial carotid and vertebral arteries. Multiplanar reconstruction. 3-D MIPS and Volume-rendered imag es acquired at the workstation and saved to PACS. Images are reviewed in soft tissue, bone, lung w indows. All CT scanners at this facility use dose modulation, iterative reconstruction, and/or weight based d osing when appropriate to reduce radiation dose to as low as reasonably achievable (ALARA). [facility]: Dose Right [facility]: CareDose [facility]: Dose Right [facility]: Teradose 4D [facility]: [employer] CONTRAST TYPE AND DOSE: contrast/concentration: Isovue 350.00 mmol/ml; Total Contrast Delivered: 70. 0 ml; Total Saline Delivered: 75.0 ml RENAL FUNCTION: Not performed. LIMITATIONS: None. FINDINGS: AORTIC ARCH: Normal three-vessel origin. Bilateral subclavian arteries are patent. No d issection. RIGHT CAROTIDS: Patent common, internal and external carotid arteries without suggestion of significa nt stenosis. Moderate calcified plaque. No dissection. Tortuous proximal right ICA. RIGHT VERTEBRAL: Patent. No dissection. LEFT CAROTIDS: Patent common, internal and external carotid arteries without suggestion of significan t stenosis. Moderate calcified plaque. No dissection. Tortuous proximal ICA. LEFT VERTEBRAL: Patent. No dissection. OTHER: Multiple bilateral thyroid nodules. OTHER: 3-D reconstructions confirm findings. IMPRESSION: Tortuous ICAs bilaterally. No high-grade stenosis. COMMENT: Quality ID #[id number]: Measurements of distal internal carotid diameter were used as the denomina tor for stenosis measurement. TECHNICAL DOCUMENTATION: JOB ID: [id number] Quality ID # [id number]: Final reports with documentation of one or more dose reduction techniques (e.g., Au tomated exposure control, adjustment of the mA and/or kV according to patient size, use of iterative reconstruction technique) 2010 [employer]- All Rights Reserved Reading location - IP/workstation name: [email or web address]
[2020-01-29 15:28] LABS: INTERNATIONAL RATION (INR) 0.99; PROTHROMBIN TIME 13.3 SEC (11.4-15.4)
[2020-01-29 15:29] LABS: PARTIAL THROMBOPLASTIN TIME 22.2 SEC (23.5-35.8)
--- NOTE | 2020-01-29 15:36 | ER Document Report ---
ED General - General Chief Complaint: S/S of Possible Stroke Stated Complaint: POSSIBLE STROKE Time Seen by Provider: 01/29/20 14:53 TRAVEL OUTSIDE OF THE [place] IN LAST 30 DAYS: No - HPI Notes: Patient is an 84-year-old female who presents to the emergency department for evaluation via EMS from the [place] [facility]. alf reports that she was seen normal last at 12:15 PM. At 1245 they noted left-sided weakness and inattention. She was sent to the emergency department. She arrived at the emergency department at 1440. She was initially greeted by a physician, sent for CT scan of the head. Given report of the deficits, I did order CTA of the head and neck. The patient herself denies any pain, but history is difficult, given the fact that she has a baseline dementia, and is also exhibiting dysarthria and moderate aphasia. - Related Data Allergies/Adverse Reactions: No Known Allergies Allergy (Verified 06/07/18 13:38) Past Medical History - General Information source: Patient, Emergency Med Personnel, Outside Facility Records - Social History Smoking Status: Former Smoker Family History: Reviewed & Not Pertinent - Past Medical History Cardiac Medical History: Reports: Hx Hypertension - Lisinopril Renal/ Medical History: Denies: Hx Peritoneal Dialysis Psychiatric Medical History: Reports: Hx Dementia Denies: Hx Depression - Immunizations Hx Diphtheria, Pertussis, Tetanus Vaccination: Yes Review of Systems - Review of Systems -: Yes ROS unobtainable due to patient's medical condition Physical Exam - Vital signs Vitals: Temp 99.0 F 01/29/20 14:43 - Notes Notes: This is a pleasant 84-year-old female who appears her stated age, no acute distress. She is lying comfortably in bed 2. Head is normocephalic and atraumatic, pupils are equal round, reactive to light. Oral mucosa is moist. Uvula is midline. Heart is regular rate and rhythm, lungs are clear to auscultation bilaterally. Abdomen soft, nontender, normoactive bowel sounds. Skin is warm and dry. Extremities without cyanosis, clubbing, edema. Patient is awake and alert. She is disoriented to person and time, oriented to place. She has a profound dysarthria and a moderate expressive a aphasia noted. I am unsure as to how different this is from her baseline. She has a left-sided facial palsy. She is unable to shrug her left shoulder. She is able to lightly move her left fingers, but has no movement against gravity on the left upper extremity. She has slight effort against gravity on the left lower extremity. She is hyperreflexive on the left. She has no gaze palsy, but a complete left- sided inattention. Patient unable to follow commands with [id number]. Her rapid alternating movements are intact on the right. Patient unable to follow commands with [id number]. Course - Re-evaluation Re-evalutation: 01/29/20 15:34 Patient presents to the emergency department for evaluation of signs consistent with an acute stroke. She presented to this facility at 1440, which is 2 hours and 25 minutes after her last known well. She had CT scan of the head, CTA of the head and neck, all found to be unremarkable. Unfortunately, at the 3-hour and 10-minute taye, I still did not have CBC and coagulation studies back on th is patient. Given her age, this does put her outside of the window for TPA, although I will consult with neurology at [facility] regarding this. Patient's blood pressure did become moderately elevated, with a systolic over 190, but she is currently 173/80. Labetalol had been ordered but not administered. We will continue to monitor. 01/29/20 16:[address] Sheets, on-call stroke neurologist at [facility], at 1605. We talked at length about the patient's presentation, her NIH, her age, and any indications/contraindications to TPA. He states that agent is still a relative contraindication in the administration of TPA in the 3 to 4-1/2-hour window, and does believe that in this patient it is a reasonable therapy. Decision was made to proceed with alteplase. I spoke with Magda, a physician assistant customer service manager long winder tender in the neuro ICU for [facility]. She accepted this patient on behalf of Dr. David ramirez. She does advised that blood pressure should be kept below 180/105. Patient has already received labetalol. I spoke at length with the patient's daughter. We discussed the indication for this medications. We discussed all of the contraindications, and I again verified with her that the patient has no contraindications to the administration of this medication. We talked at length about the possible complications from this medication, and the patient's daughter has agreed to proceed with thrombolytic therapy. Patient is currently stable. Her blood pressure is currently 183/88. We will start patient on a second antihypertensive. We will continue to monitor. 01/29/20 16:33 I went back into evaluate patient after administration of alteplase. Patient's dysarthria has improved, as well as her aphasia. She continues to have flaccid paralysis of left upper extremity. Unfortunately, her blood pressure became systolic 222. She was administered labetalol 20 mg IV, her blood pressure came down to 199/102. This is still not within goal. Decision was made to hang Cardene for more aggressive blood pressure control. Patient remains otherwise stable. 01/29/20 17:19 Patient has received TPA, is on Cardene drip. Her blood pressure is being managed appropriately. She does have a mild improvement in her aphasia and dysarthria, still has flaccid paralysis in the left upper extremity. EMS is here for transport, she is currently stable, and will be taken to [facility] for [facility]. - Vital Signs Vital signs: Temp Pulse Resp BP Pulse Ox 98.9 F 88 17 187/68 H 99 01/29/20 17:43 01/29/20 17:43 01/29/20 17:43 01/29/20 17:43 01/29/20 17:43 - Laboratory Result Diagrams: 01/29/20 15:08 01/29/20 15:08 Laboratory results interpreted by me: 01/29/20 01/29/20 01/29/20 15:08 15:08 15:18 RDW 15.3 H APTT 22.2 L Chloride 109 H BUN 36 H Creatinine 1.38 H Est GFR ( Amer) 44 L Est GFR (MDRD) Non-Af 36 L Glucose 167 H Albumin 3.3 L Urine Protein Urine Blood Ur Leukocyte Esterase 01/29/20 16:20 RDW APTT Chloride BUN Creatinine Est GFR ( Amer) Est GFR (MDRD) Non-Af Glucose Albumin Urine Protein 100 H Urine Blood SMALL H Ur Leukocyte Esterase LARGE H - Diagnostic Test Radiology reviewed: Reports reviewed Radiology results interpreted by me: 01/29/20 15:36 Neck CTA 01/29/20 00:00 IMPRESSION: Tortuous ICAs bilaterally. No high-grade stenosis. Chest X-Ray 01/29/20 14:44 IMPRESSION: NO ACUTE RADIOGRAPHIC FINDING IN THE CHEST. Head CTA 01/29/20 14:44 IMPRESSION: 1. Diffuse cerebral atrophy and small-vessel ischemic changes. Old right frontal lobe infarct. 2. No CTA evidence of focal stenosis aneurysm or vessel occlusion. EVIDENCE OF ACUTE STROKE: NO. - EKG Interpretation by Me Additional EKG results interpreted by me: 01/29/20 15:36 Sinus mechanism with a rate of 82 bpm. Left axis deviation. Anterolateral T wave inversions consistent with ischemia versus strain. No change compared to prior study of June 2018. Critical Care Note - Critical Care Note Total time excluding time spent on procedures (mins): 45 Discharge - Discharge Clinical Impression: Ischemic cerebrovascular accident (CVA) Condition: Stable Disposition: [facility] Admitting Provider: Dr. Palmer
[2020-01-29 15:39] LABS: ALBUMIN 3.3 g/dL (3.5-5.0); ALKALINE PHOSPHATASE 76 U/L (38-126); ANION GAP 5 (5-19); ASPARTATE AMINO TRANSFERASE 25 U/L (14-36); BILIRUBIN,TOTAL 0.3 mg/dL (0.2-1.3); BLOOD UREA NITROGEN 36 mg/dL (7-20); CARBON DIOXIDE 26 mmol/L (22-30); CHLORIDE 109 mmol/L (98-107); CREATINE KINASE 31 U/L (30-135); GLUCOSE 167 mg/dL (75-110); POTASSIUM 4.4 mmol/L (3.6-5.0); TOTAL PROTEIN 6.4 g/dL (6.3-8.2)
[2020-01-29 15:51] LABS: CREATINE KINASE MB 0.53 ng/mL (<4.55)
[2020-01-29 15:52] LABS: TROPONIN I < 0.012 ng/mL
[2020-01-29] MEDS ORDERED: ALTEPLASE INJ 100 MG VIAL ONE (16:06)
[2020-01-29] MEDS ORDERED: ALTEPLASE INJ 100 MG VIAL IV ONE (16:31)
[2020-01-29] MEDS ORDERED: NICARDIPINE HCL RTU, ISO-OS 20 MG/200 ML RTUINJ IV PRN (16:32)
[2020-01-29 16:41] LABS: APPEARANCE,URINE SLIGHTLY-CLOUDY; BILIRUBIN,URINE NEGATIVE (NEGATIVE); COLOR,URINE YELLOW; GLUCOSE, URINE NEGATIVE (NEGATIVE); KETONES,URINE NEGATIVE (NEGATIVE); LEUKOCYTE ESTERASE,URINE LARGE (NEGATIVE); NITRITE,URINE NEGATIVE (NEGATIVE); PROTEIN,URINE 100 mg/dL (NEGATIVE); URINE SPECIFIC GRAVITY 1.047; UROBILINOGEN,URINE NEGATIVE mg/dL (<2.0)
--- NOTE | 2020-01-29 17:13 | EKG REPORT ---
SEVERITY:- ABNORMAL ECG - SINUS RHYTHM LEFT VENTRICULAR HYPERTROPHY ABNORMAL T, CONSIDER ISCHEMIA, ANT-LAT LEADS : Confirmed by: Bienvenido Weber MD 29-Jan-2020 17:11:41
[2020-01-29 17:47] VITALS: BP 187/68
== END 2020-01-29 17:28 | disposition short-term general hospital (02) ==
LOC: ER 14:43
DX: I63.9 Cerebral infarction, unspecified (principal); G81.94 Hemiplegia, unspecified affecting left nondominant side
CPT/HCPCS: 93005; 96376; 99291; 51702; 96375; 96365; 36415; 82553; 82550; 85025; 85610; 85730; 80053; 81001; 84484; 71045; 70496; 70498; 93010; J3490 ×2; J2997

== ENCOUNTER 2020-05-03 01:24 | Inpatient (IN) | payer MEDICARE, MEDICAID ==
[2020-05-03] MEDS ORDERED: LEVOFLOXACIN 750 MG/D5W RTU 750 MG/150 ML RTUPB IV ONE (02:18)
[2020-05-03 02:31] LABS: VENOUS BLOOD BASE EXCESS 10.5 mmol/L; VENOUS BLOOD HCO3 35.1 mmol/L (20-32); VENOUS BLOOD PCO2 45.6 mmHg (35-63); VENOUS BLOOD PH 7.5 (7.30-7.42)
[2020-05-03 02:33] LABS: ABSOLUTE BASOPHILS # (AUTO) 0.1 10^3/uL (0.0-0.2); ABSOLUTE LYMPHOCYTES (AUTO) 1.7 10^3/uL (0.5-4.7); ABSOLUTE MONOCYTES (AUTO) 0.9 10^3/uL (0.1-1.4); BASOPHILS % (AUTO) 0.4 % (0-2); HEMATOCRIT 46.7 % (36.0-47.0); HEMOGLOBIN 15.3 g/dL (12.0-15.5); LYMPHOCYTES % (AUTO) 10.6 % (13-45); MEAN CORPUSCULAR HGB CONC 32.7 g/dL (32.0-36.0); MEAN CORPUSCULAR VOLUME 89 fl (80-97); MONOCYTES % (AUTO) 5.5 % (3-13); PLATELET COUNT 157 10^3/uL (150-450); RED BLOOD COUNT 5.25 10^6/uL (3.72-5.28); RED CELL DISTRIBUTION WIDTH 18.2 % (11.5-14.0); SEGMENTED NEUTROPHILS % (AUTO) 83.5 % (42-78); TOTAL CELLS COUNTED % (AUTO) 100 %; WHITE BLOOD COUNT 15.5 10^3/uL (4.0-10.5)
[2020-05-03 02:37] LABS: INTERNATIONAL RATION (INR) 1.32; PARTIAL THROMBOPLASTIN TIME 27.7 SEC (23.5-35.8); PROTHROMBIN TIME 16.5 SEC (11.4-15.4)
[2020-05-03 02:48] LABS: ALBUMIN 3.4 g/dL (3.5-5.0); ALKALINE PHOSPHATASE 88 U/L (38-126); ASPARTATE AMINO TRANSFERASE 43 U/L (14-36); BILIRUBIN,DIRECT 0.3 mg/dL (0.0-0.4); BILIRUBIN,TOTAL 0.5 mg/dL (0.2-1.3); CALCIUM 9.4 mg/dL (8.4-10.2); CHLORIDE 118 mmol/L (98-107); CREATINE KINASE 96 U/L (30-135); GLUCOSE 347 mg/dL (75-110); PHOSPHORUS 2.7 mg/dL (2.5-4.5); POTASSIUM 3.1 mmol/L (3.6-5.0); TOTAL PROTEIN 6.6 g/dL (6.3-8.2)
[2020-05-03] MEDS ORDERED: ADENOSINE INJ/PF 6 MG/2 ML SDV IV ONE (02:56)
--- NOTE | 2020-05-03 02:56 | ER Document Report ---
ED General - General Chief Complaint: Altered Mental Status Stated Complaint: AMS Notes: 84-year-old female with stroke with residual aphasia, dementia, hypertension, sm oking, CKD, rhabdo as per prior chart brought in for altered mental status for past several days from [facility]. As per EMS she was diagnosed with a UTI May 01 and started on ceftriaxone. Patient apparently takes 3 L nasal cannula at baseline, was satting well with EMS and tachypneic to 28 and had fever of 103 which to give Tylenol for. Note from physician evaluation on April 29 says that patient had persistent leukocytosis after discharge from hospital for CHF exacerbation. patient had echo in June 2018 that showed normal ejection fraction and no diastolic failure. Per [facility] paperwork, patient was started on Lasix 20 mg daily on 04/13/2020 also started on hydrochlorothiazide on 03/09/2020 and patient also on Eliquis 2.5 mg twice daily for "DVT prevention" which was started on 03/09/2020. Patient started on memantine on 04/24/2020. Started on Humalog 05/01/2020. Paperwork also has a urine culture that was collected on April 29 that grew greater than 100,000 CFU's of Pseudomonas which was sensitive to cefepime and Levaquin. Unable to obtain history from nonverbal patient. TRAVEL OUTSIDE OF THE [place] IN LAST 30 DAYS: No - Related Data Allergies/Adverse Reactions: LUZ MARINA Inhibitors Allergy (Verified 05/03/20 05:17) lisinopril Allergy (Verified 05/03/20 05:17) Past Medical History - General Information source: Transfer Record, Emergency Med Personnel, [facility] Records, Outside Facility Records - Social History Smoking Status: Unknown if Ever Smoked Family History: Other - pt unable - Past Medical History Cardiac Medical History: Reports: Hx Hypertension - Lisinopril Renal/ Medical History: Denies: Hx Peritoneal Dialysis Psychiatric Medical History: Reports: Hx Dementia Denies: Hx Depression - Immunizations Hx Diphtheria, Pertussis, Tetanus Vaccination: Yes Review of Systems - Review of Systems -: Yes ROS unobtainable due to patient's medical condition - Nonverbal Physical Exam - Vital signs Vitals: Resp Pulse Ox 27 H 95 05/03/20 01:39 05/03/20 01:39 - Notes Notes: PHYSICAL EXAMINATION: GENERAL: Ill-appearing nonverbal lethargic elderly woman HEAD: Atraumatic, normocephalic. EYES: Pupils equal round and appropriate constriction, sclera anicteric, conjunctiva are normal. ENT: nares patent, dry mucous membranes. NECK: Normal range of motion, supple without lymphadenopathy LUNGS: Mildly tachypneic, good air movement, few scattered rhonchi bilaterally, no wheezing HEART: Tachycardic with regular rhythm, systolic murmur greatest over lower left sternal border ABDOMEN: Soft, nontender, no guarding, PEG tube in place EXTREMITIES: Normal range of motion, no pitting or edema. No cyanosis. NEUROLOGICAL: Lethargic, nonverbal, protecting airway, normal tone SKIN: Warm, Dry, stage I left heel decubitus ulcer, stage II right heel decubitus ulcer, healed sacral decubitus ulcer Course - Re-evaluation Re-evalutation: 05/03/20 03:36 Patient presents with what is likely been many days of altered mental status. Judging by the medications that were started in patient's facility patient has probably been altered since likely April 24 when memantine was started and then still April 29 when UTI was collected. Patient's UA was culture positive for Pseudomonas, canceled my cefepime order as culture was sensitive to Levaquin. Patient has been repeatedly going into SVT but has not been sustained, she converts to sinus rhythm or sinus tachycardia before interventions can be given. Patient with rate dependent ST elevation on EKG but given severe sepsis and severe dehydration likely causing demand ischemia and ST elevations being reversible and intermittent patient is not a candidate for PCI at this time. I have contacted MECHANICAL SYSTEMS CONTROL ENGINEER Jo Cline who is covering ICU for ICU admission for this patient. Given that patient had echo that previously showed normal ejection fraction and patient is significantly dehydrated clinically I have ordered a full sepsis crystalloid bolus which has already improved patient 's heart rate when she is not in SVT. Will continue to monitor closely. 05/03/20 04:41 AZUCENA Cline is accepted patient to ICU. I ordered Lovenox and aspirin for patient's NSTEMI and will start patient on Cardizem drip for recurrent paroxysmal SVT. Patient's blood pressure and respiratory status have remained stable. - Vital Signs Vital signs: Temp Pulse Resp BP Pulse Ox 99.0 F 68 14 120/55 L 100 05/04/20 05:52 05/04/20 05:52 05/04/20 05:52 05/04/20 05:52 05/04/20 05:52 - Laboratory Result Diagrams: 05/04/20 05:20 05/04/20 05:20 Laboratory results interpreted by me: 05/03/20 05/03/20 05/03/20 01:50 02:06 02:06 WBC 15.5 H RDW 18.2 H Lymph % (Auto) 10.6 L Absolute Neuts (auto) 13.0 H Seg Neutrophils % 83.5 H PT 16.5 H VBG pH VBG HCO3 Sodium Potassium Chloride Carbon Dioxide BUN Creatinine Est GFR ( Amer) Est GFR (MDRD) Non-Af Glucose POC Glucose 323 H Serum Osmolality Lactic Acid Magnesium AST ALT Albumin Urine Protein Ur Leukocyte Esterase Urine Ascorbic Acid 05/03/20 05/03/20 05/03/20 02:06 02:06 02:06 WBC RDW Lymph % (Auto) Absolute Neuts (auto) Seg Neutrophils % PT VBG pH 7.50 H VBG HCO3 35.1 H Sodium 169.8 H* Potassium 3.1 L Chloride 118 H Carbon Dioxide 40 H* BUN 183 H Creatinine 2.35 H Est GFR ( Amer) 24 L Est GFR (MDRD) Non-Af 20 L Glucose 347 H POC Glucose Serum Osmolality Lactic Acid 3.0 H Magnesium 3.5 H AST 43 H ALT 42 H Albumin 3.4 L Urine Protein Ur Leukocyte Esterase Urine Ascorbic Acid 05/03/20 05/03/20 05/03/20 02:06 02:37 03:27 WBC RDW Lymph % (Auto) Absolute Neuts (auto) Seg Neutrophils % PT VBG pH VBG HCO3 Sodium Potassium Chloride Carbon Dioxide BUN Creatinine Est GFR ( Amer) Est GFR (MDRD) Non-Af Glucose POC Glucose 276 H Serum Osmolality 442 H Lactic Acid Magnesium AST ALT Albumin Urine Protein >=500 H Ur Leukocyte Esterase MODERATE H Urine Ascorbic Acid 40 H 05/03/20 05:36 WBC RDW Lymph % (Auto) Absolute Neuts (auto) Seg Neutrophils % PT VBG pH VBG HCO3 Sodium Potassium Chloride Carbon Dioxide BUN Creatinine Est GFR ( Amer) Est GFR (MDRD) Non-Af Glucose POC Glucose Serum Osmolality Lactic Acid Magnesium AST ALT Albumin Urine Protein 100 H Ur Leukocyte Esterase Urine Ascorbic Acid 40 H - EKG Interpretation by Me Additional EKG results interpreted by me: 05/03/20 06:32 Initial EKG sinus tachycardia, no significant ST depressions or elevations, precordial and aVL in 2 T wave inversions, no prior available Second EKG sinus tachycardia, no significant ST depressions or elevations, precordial T wave inversions, no significant change from initial EKG 3rd EKG heart rate 189, SVT, diffuse ST elevations, dynamic from prior EKGs Fourth EKG sinus tachycardia, diffuse T wave inversions, submillimeter ST elevations in precordial leads Critical Care Note - Critical Care Note Total time excluding time spent on procedures (mins): 75 - Spent time repeatedly reassessing patient with severe sepsis, repeated paroxysmal SVT, obtaining collateral information, and consulting with publishing manager Discharge - Discharge Clinical Impression: Severe sepsis, Severe dehydration, SVT (supraventricular tachycardia), NSTEMI (non-ST elevated myocardial infarction), Acute hypernatremia Urinary tract infection Qualifiers: Urinary tract infection type: acute cystitis Hematuria presence: without hematuria Qualified Code(s): N30.00 - Acute cystitis without hematuria Altered mental status Qualifiers: Altered mental status type: delirium Qualified Code(s): R41.0 - Disorientation, unspecified Disposition: ADMITTED INPATIENT Admitting Provider: [facility] Admitted: ICU
[2020-05-03 03:04] LABS: APPEARANCE,URINE CLOUDY; BILIRUBIN,URINE NEGATIVE (NEGATIVE); COLOR,URINE YELLOW; GLUCOSE, URINE NEGATIVE (NEGATIVE); KETONES,URINE NEGATIVE (NEGATIVE); LEUKOCYTE ESTERASE,URINE MODERATE (NEGATIVE); NITRITE,URINE NEGATIVE (NEGATIVE); PROTEIN,URINE >=500 mg/dL (NEGATIVE); URINE SPECIFIC GRAVITY 1.019; UROBILINOGEN,URINE NEGATIVE mg/dL (<2.0)
[2020-05-03 03:06] LABS: ANION GAP 12 (5-19); BLOOD UREA NITROGEN 183 mg/dL (7-20)
[2020-05-03 03:07] LABS: CARBON DIOXIDE 40 mmol/L (22-30)
[2020-05-03] MEDS: RINGERS LACTATED IV PRN ×2 (03:12→04:13)
[2020-05-03] MEDS ORDERED: CEFEPIME 2 GM/D5W RTU 2 GM/50 ML RTUPB IV ONE (03:16)
[2020-05-03] MEDS ORDERED: POTASSI CL 20 MEQ/50 ML RIDER 20 MEQ/50 ML RTUPB IV ONE (03:17)
--- NOTE | 2020-05-03 03:43 | RADIOLOGY REPORT (SQ) ---
CHEST X-RAY 1 VIEW on 05/03/2020 at 2:54 AM CLINICAL INDICATION: Altered mental status, sepsis COMPARISON: 01/29/2020 FINDINGS: There is mild elevation of the right hemidiaphragm. There are bibasilar opacities likely representing atelectasis. Vascular calcification is noted in the aorta. Biapical scarring is noted. The lungs are otherwise clear. Heart is upper limits normal for size. Pulmonary vascularity is within normal limits. IMPRESSION: Bibasilar atelectasis or scarring with otherwise no acute disease.
--- NOTE | 2020-05-03 03:43 | RADIOLOGY REPORT (SQ) ---
CT head without contrast on 05/03/2020 at 2:50 AM CLINICAL INDICATION: Altered mental status TECHNIQUE: Multiple axial images are obtained throughout the head without the administration of contrast. This exam was performed according to our departmental dose-optimization program, which includes automated exposure control, adjustment of the mA and/or kV according to patient size and/or use of iterative reconstruction technique. Total DLP is 963.96 mGy*cm. COMPARISON: 07/25/2018 FINDINGS: There is generalized cerebral atrophy. There is low-density in the periventricular white matter consistent with chronic small vessel ischemic changes. There is encephalomalacia in the right frontal and parietal lobes consistent with old right MCA territory infarcts. There is also old right basal ganglia lacunar infarct. No definite CT evidence of acute infarct is noted. There is no hemorrhage. There are no abnormal extra-axial fluid collections. There is no mass, mass effect or midline shift. No bony abnormality is noted. IMPRESSION: Atrophy and chronic small vessel ischemic changes with old right-sided infarcts and no acute intracranial abnormality.
[2020-05-03] MEDS ORDERED: ENOXAPARIN SODIUM INJ 80 MG/0.8 ML DISP.SYRIN SUBCUT ONE (04:02)
[2020-05-03] MEDS ORDERED: ASPIRIN 81 MG TABLET, CHEWABLE PEG ONE (04:02)
[2020-05-03 04:04] LABS: A TYPE INFLUENZA AG NEGATIVE (NEGATIVE); B INFLUENZA AG NEGATIVE (NEGATIVE)
[2020-05-03] MEDS: DILTIAZEM HCL/D5W 125 MG/125 ML RTUINJ IV PRN ×2 (04:53→18:24)
[2020-05-03] MEDS ORDERED: ACETAMINOPHEN 325 MG TABLET PO PRN (05:31)
[2020-05-03] MEDS ORDERED: DEXTROSE 5%-1/2 NORMAL SALINE 1,000 ML IV PRN (05:31)
[2020-05-03 06:06] LABS: APPEARANCE,URINE CLEAR; BILIRUBIN,URINE NEGATIVE (NEGATIVE); COLOR,URINE YELLOW; GLUCOSE, URINE NEGATIVE (NEGATIVE); KETONES,URINE NEGATIVE (NEGATIVE); LEUKOCYTE ESTERASE,URINE NEGATIVE (NEGATIVE); NITRITE,URINE NEGATIVE (NEGATIVE); PROTEIN,URINE 100 mg/dL (NEGATIVE); URINE SPECIFIC GRAVITY 1.016; UROBILINOGEN,URINE NEGATIVE mg/dL (<2.0)
[2020-05-03] MEDS ORDERED: NORMAL SALINE 1000 ML 1,000 ML IV ONE (08:26)
--- NOTE | 2020-05-03 09:45 | EKG REPORT ---
SEVERITY:- ABNORMAL ECG - SINUS TACHYCARDIA LVH WITH SECONDARY REPOLARIZATION ABNORMALITY : Confirmed by: Kwabena Santos MD 03-May-2020 09:44:19
--- NOTE | 2020-05-03 09:46 | EKG REPORT ---
SEVERITY:- ABNORMAL ECG - SINUS TACHYCARDIA LEFT VENTRICULAR HYPERTROPHY : Confirmed by: Kwabena Santos MD 03-May-2020 09:45:33
--- NOTE | 2020-05-03 09:46 | EKG REPORT ---
SEVERITY:- ABNORMAL ECG - SUPRAVENTRICULAR TACHYCARDIA LEFT VENTRICULAR HYPERTROPHY ST ELEVATION, PROBABLE ANTEROLATERAL INJURY NONSPECIFIC T ABNORMALITIES, INFERIOR LEADS : Confirmed by: Kwabena Santos MD 03-May-2020 09:45:25
--- NOTE | 2020-05-03 09:46 | EKG REPORT ---
SEVERITY:- ABNORMAL ECG - SINUS TACHYCARDIA LEFT VENTRICULAR HYPERTROPHY RATE RELATED REPOLARIZATION ABNORMALITY LIKELY PERSISTS : Confirmed by: Kwabena Santos MD 03-May-2020 09:45:18
--- NOTE | 2020-05-03 09:51 | CRITICAL CARE ADMISSION REPORT ---
<SEVERO BURR - Last Filed: 05/03/20 07:53> HPI Date:: 05/03/20 Reason for ICU Reason:: SVT, AMS Admission Date/Time & PCP: Admission Date/Time: 05/03/20 05:42 Primary Care Provider: BRITTON HERNANDEZ MD HPI: 84-year-old female with stroke with residual aphasia, dementia, hypertension, smoking, CKD, rhabdo as per prior chart brought in for altered mental status for past several days from [facility]. As per EMS she was diagnosed with a UTI May 01 and started on ceftriaxone. Patient apparently takes 3 L nasal cannula at baseline, was satting well with EMS and tachypneic to 28 and had fever of 103 which to give Tylenol for. Note from physician evaluation on April 29 says that patient had persistent leukocytosis after discharge from hospital for CHF exacerbation. patient had echo in June 2018 that showed normal ejection fraction and no diastolic failure. Per [facility] paperwork, patient was started on Lasix 20 mg daily on 04/13/2020 also started on hydrochlorothiazide on 03/09/2020 and patient also on Eliquis 2.5 mg twice daily for "DVT prevention" which was started on 03/09/2020. Patient started on memantine on 04/24/2020. Started on Humalog 05/01/2020. Paperwork also has a urine culture that was collected on April 29 that grew greater than 100,000 CFU's of Pseudomonas which was sensitive to cefepime and Levaquin. Unable to obtain history from nonverbal patient. - Diagnosis/Plan (2) Altered mental status Qualifiers: Altered mental status type: delirium Qualified Code(s): R41.0 - Disorientation, unspecified Is this a current diagnosis for this admission?: Yes Plan: AMS secondary to urinary infection, dehydration (3) NSTEMI (non-ST elevated myocardial infarction) Is this a current diagnosis for this admission?: Yes Plan: Lovenox, ASA. Monitor CK/troponin (4) SVT (supraventricular tachycardia) Is this a current diagnosis for this admission?: Yes Plan: Diltiazam IV to control rate. Mag/K+ level (5) Severe dehydration Is this a current diagnosis for this admission?: Yes Past Medical History Cardiac Medical History: Reports: Hypertension - Lisinopril Psychiatric Medical History: Reports: Dementia Denies: Depression Social/Family History - Social History Smoking Status: Unknown if Ever Smoked Frequency of Alcohol Use: None Hx Recreational Drug Use: No Drugs: None Hx Prescription Drug Abuse: No - Medication/Allergies Home Medications: Albuterol Sulfate [Proair Hfa Inhalation Aerosol 8.5 gm Mdi] 2 puff IH Q4HP PRN 05/03/20 Allopurinol [Zyloprim 100 mg Tablet] 100 mg PEG QPM 05/03/20 Amino Acids/Protein Hydrolys [Pro-Stat Awc Liquid Packet] 2 pkt PEG DAILY PRN 05/03/20 Amlodipine Besylate [Norvasc 10 mg Tablet] 10 mg PEG DAILY 05/03/20 Apixaban [Eliquis 2.5 mg Tablet] 2.5 mg PEG BID 05/03/20 Aspirin [Aspirin 81 mg Chewable Tablet] 81 mg PEG DAILY 05/03/20 Atorvastatin Calcium [Lipitor 40 mg Tablet] 40 mg PEG QPM 05/03/20 Ceftriaxone 1 gm/D5w RTU [Rocephin RTU 1 gm/D5w 50 ml Premix] 1 gm IV Q2PM MDD FOR 5 DAYS STARTING 05/0105/03/20 Cholecalciferol (Vitamin D3) [Vitamin D3 1000 Unit Tablet] 2,000 unit PEG DAILY 05/03/20 Citalopram Hydrobromide [Citalopram HBr] 5 mg PEG DAILY 05/03/20 Docusate Sodium [Colace Udc 100 mg/10 ml Oral Soln] 100 mg PEG BID 05/03/20 Famotidine [Pepcid 20 mg Tablet] 20 mg PEG BID 05/03/20 Furosemide [Lasix 20 mg Tablet] 20 mg PEG DAILY 05/03/20 Hydralazine HCl [Apresoline 50 mg Tablet] 100 mg PEG Q8 05/03/20 Hydrochlorothiazide [Hydrodiuril 25 mg Tablet] 25 mg PEG QPM 05/03/20 Insulin Lispro [Humalog Insulin 100 Unit/1 ml 3 ml Vial] 0 unit SUBCUT .SLD SCALE 05/03/20 Memantine HCl [Namenda 10 mg Tablet] 10 mg PEG BID 05/03/20 Multivitamin with Minerals [One Daily Plus Minerals] 1 each PEG QPM 05/03/20 Sennosides [Senna] 17.2 mg PEG QPM 05/03/20 Allergies/Adverse Reactions: LUZ MARINA Inhibitors Allergy (Verified 05/03/20 05:17) lisinopril Allergy (Verified 05/03/20 05:17) Physical Exam Vital Signs: Temp Pulse Resp BP Pulse Ox 98.5 F 16 112/65 94 05/03/20 06:45 05/03/20 07:00 05/03/20 07:00 05/03/20 07:00 Intake & Output 05/02/20 05/03/20 05/04/20 06:59 06:59 06:59 Intake Total 4400 Balance 4400 Weight 69.9 kg Weight/Height Weight 69.9 kg Height 5 ft 6 in Laboratory/Radiographs Laboratory Results: 05/03/20 02:06 05/03/20 02:06 05/03/20 05/03/20 05/03/20 02:06 02:06 02:06 WBC 15.5 H RBC 5.25 Hgb 15.3 Hct 46.7 MCV 89 MCH 29.0 MCHC 32.7 RDW 18.2 H Plt Count 157 Seg Neutrophils % 83.5 H VBG pH VBG pCO2 VBG HCO3 VBG Base Excess Sodium 169.8 H* Potassium 3.1 L Chloride 118 H Carbon Dioxide 40 H* Anion Gap 12 BUN 183 H Creatinine 2.35 H Est GFR ( Amer) 24 L Glucose 347 H Serum Osmolality Lactic Acid 3.0 H Calcium 9.4 Phosphorus 2.7 Magnesium 3.5 H Total Bilirubin 0.5 AST 43 H Alkaline Phosphatase 88 Ammonia Total Protein 6.6 Albumin 3.4 L TSH Urine Color Urine Appearance Urine pH Ur Specific [place] Urine Protein Urine Glucose (UA) Urine Ketones Urine Blood Urine Nitrite Ur Leukocyte Esterase Urine WBC (Auto) Urine RBC (Auto) Urine Osmolality 05/03/20 05/03/20 05/03/20 02:06 02:06 02:06 WBC RBC Hgb Hct MCV MCH MCHC RDW Plt Count Seg Neutrophils % VBG pH 7.50 H VBG pCO2 45.6 VBG HCO3 35.1 H VBG Base Excess 10.5 Sodium Potassium Chloride Carbon Dioxide Anion Gap BUN Creatinine Est GFR ( Amer) Glucose Serum Osmolality 442 H Lactic Acid Calcium Phosphorus Magnesium Total Bilirubin AST Alkaline Phosphatase Ammonia Total Protein Albumin TSH 0.65 Urine Color Urine Appearance Urine pH Ur Specific [place] Urine Protein Urine Glucose (UA) Urine Ketones Urine Blood Urine Nitrite Ur Leukocyte Esterase Urine WBC (Auto) Urine RBC (Auto) Urine Osmolality 05/03/20 05/03/20 05/03/20 02:37 02:37 03:12 WBC RBC Hgb Hct MCV MCH MCHC RDW Plt Count Seg Neutrophils % VBG pH VBG pCO2 VBG HCO3 VBG Base Excess Sodium Potassium Chloride Carbon Dioxide Anion Gap BUN Creatinine Est GFR ( Amer) Glucose Serum Osmolality Lactic Acid Calcium Phosphorus Magnesium Total Bilirubin AST Alkaline Phosphatase Ammonia 13.4 Total Protein Albumin TSH Urine Color YELLOW Urine Appearance CLOUDY Urine pH 5.0 Ur Specific [place] 1.019 Urine Protein >=500 H Urine Glucose (UA) NEGATIVE Urine Ketones NEGATIVE Urine Blood NEGATIVE Urine Nitrite NEGATIVE Ur Leukocyte Esterase MODERATE H Urine WBC (Auto) 38 Urine RBC (Auto) 5 Urine Osmolality 578 05/03/20 05:36 WBC RBC Hgb Hct MCV MCH MCHC RDW Plt Count Seg Neutrophils % VBG pH VBG pCO2 VBG HCO3 VBG Base Excess Sodium Potassium Chloride Carbon Dioxide Anion Gap BUN Creatinine Est GFR ( Amer) Glucose Serum Osmolality Lactic Acid Calcium Phosphorus Magnesium Total Bilirubin AST Alkaline Phosphatase Ammonia Total Protein Albumin TSH Urine Color YELLOW Urine Appearance CLEAR Urine pH 7.0 Ur Specific [place] 1.016 Urine Protein 100 H Urine Glucose (UA) NEGATIVE Urine Ketones NEGATIVE Urine Blood NEGATIVE Urine Nitrite NEGATIVE Ur Leukocyte Esterase NEGATIVE Urine WBC (Auto) 2 Urine RBC (Auto) 1 Urine Osmolality 05/03/20 05/03/20 02:06 02:06 Creatine Kinase 96 Troponin I 0.517 Impressions: Chest X-Ray 05/03/20 01:59 IMPRESSION: Bibasilar atelectasis or scarring with otherwise no acute disease. Head CT 05/03/20 01:59 IMPRESSION: Atrophy and chronic small vessel ischemic changes with old right-sided infarcts and no acute intracranial abnormality. Critical Time -: The care of a critically ill patient is dynamic. This note represents a static moment in the admission process. Orders and treatments may be given simultaneously and urgently, and time is not branch service representative of the treatment process. This patient requires Critical Care secondary to life threatening organ or limb dysfunction. Without Critical Care services, the patient is at risk for increased mortality and morbidity. <GUY HWANG - Last Filed: 05/03/20 12:52> HPI Time:: 09:37 Admission Date/Time & PCP: Admission Date/Time: 05/03/20 05:42 Primary Care Provider: BRITTON HERNANDEZ MD History obtained from:: Review of the record; discussion with ER staff - Diagnosis/Plan (1) Severe sepsis Is this a current diagnosis for this admission?: Yes (2) Urinary tract infection Qualifiers: Urinary tract infection type: acute cystitis Hematuria presence: without hematuria Qualified Code(s): N30.00 - Acute cystitis without hematuria Is this a current diagnosis for this admission?: Yes Plan: * Per verbal report, the patient is known to have Pseudomonas urinary tract infection. * Continue cefepime/levofloxacin. Repeat cultures. (3) NSTEMI (non-ST elevated myocardial infarction) Is this a current diagnosis for this admission?: Yes Plan: * Start heparin infusion. * Agree with aspirin. * Trend troponin. * Add metoprolol 5 mg IV every 6 hours. (4) Acute hypernatremia Is this a current diagnosis for this admission?: Yes Plan: * Monitor sodium every 4 hours. Target correction rate 12 mEq over 24 hours (2 mEq every 4 hours). * IV fluid resuscitation with normal saline only. (5) Acute renal failure superimposed on stage 3 chronic kidney disease Qualifiers: Acute renal failure type: unspecified Chronic kidney disease stage 3 subtype: stage 3a (GFR 45-59) Qualified Code(s): N17.9 - Acute kidney failure, unspecified; N18.31 - Chronic kidney disease, stage 3a Is this a current diagnosis for this admission?: Yes (6) Altered mental status Qualifiers: Altered mental status type: delirium Qualified Code(s): R41.0 - Disorientation, unspecified Is this a current diagnosis for this admission?: Yes (7) SVT (supraventricular tachycardia) Is this a current diagnosis for this admission?: Yes (8) Severe dehydration Is this a current diagnosis for this admission?: Yes (9) Dementia Qualifiers: Dementia type: unspecified type Is this a current diagnosis for this admission?: Yes (10) Hypokalemia Is this a current diagnosis for this admission?: Yes Past Medical History Cardiac Medical History: Reports: Hypertension Neurological Medical History: Reports: Other - aphasia Renal/ Medical History: Reports: Chronic Kidney Disease Musculoskeltal Medical History: Reports: Other - rhabdomyolysis Psychiatric Medical History: Reports: Dementia Social/Family History - Social History Smoking Status: Former Smoker Review of Systems ROS unobtainable: Due to mental status Physical Exam Vital Signs: Temp Pulse Resp BP Pulse Ox 97.3 F 75 14 107/74 95 05/03/20 07:54 05/03/20 07:54 05/03/20 07:54 05/03/20 07:54 05/03/20 07:54 Intake & Output 05/02/20 05/03/20 05/04/20 06:59 06:59 06:59 Intake Total 4400 Balance 4400 Weight 69.9 kg Weight/Height Weight 69.9 kg Height 1.68 m General appearance: PRESENT: no acute distress, well-developed, well-nourished Head exam: PRESENT: atraumatic, normocephalic Mouth exam: PRESENT: moist, tongue midline Neck exam: ABSENT: carotid bruit, JVD, lymphadenopathy, thyromegaly Respiratory exam: PRESENT: rales. ABSENT: rhonchi, wheezes Cardiovascular exam: PRESENT: RRR, tachycardia. ABSENT: diastolic murmur, rubs, systolic murmur Pulses: PRESENT: normal dorsalis pedis pul GI/Abdominal exam: PRESENT: normal bowel sounds, soft. ABSENT: distended, guarding, mass, organolmegaly, rebound, tenderness Extremities exam: PRESENT: full ROM, pedal edema. ABSENT: calf tenderness, clubbing Neurological exam: PRESENT: awake, reflexes normal, CN II-XII grossly intact, aphasic Psychiatric exam: ABSENT: agitated, anxious Skin exam: PRESENT: dry, warm, other - Right heel deep tissue injury; stage II sacral decubitus. ABSENT: cyanosis, rash Laboratory/Radiographs Laboratory Results: 05/03/20 02:06 05/03/20 02:06 05/03/20 05/03/20 05/03/20 02:06 02:06 02:06 WBC 15.5 H RBC 5.25 Hgb 15.3 Hct 46.7 MCV 89 MCH 29.0 MCHC 32.7 RDW 18.2 H Plt Count 157 Seg Neutrophils % 83.5 H VBG pH VBG pCO2 VBG HCO3 VBG Base Excess Sodium 169.8 H* Potassium 3.1 L Chloride 118 H Carbon Dioxide 40 H* Anion Gap 12 BUN 183 H Creatinine 2.35 H Est GFR ( Amer) 24 L Glucose 347 H Serum Osmolality Lactic Acid 3.0 H Calcium 9.4 Phosphorus 2.7 Magnesium 3.5 H Total Bilirubin 0.5 AST 43 H Alkaline Phosphatase 88 Ammonia Total Protein 6.6 Albumin 3.4 L TSH Urine Color Urine Appearance Urine pH Ur Specific [place] Urine Protein Urine Glucose (UA) Urine Ketones Urine Blood Urine Nitrite Ur Leukocyte Esterase Urine WBC (Auto) Urine RBC (Auto) Urine Osmolality 05/03/20 05/03/20 05/03/20 02:06 02:06 02:06 WBC RBC Hgb Hct MCV MCH MCHC RDW Plt Count Seg Neutrophils % VBG pH 7.50 H VBG pCO2 45.6 VBG HCO3 35.1 H VBG Base Excess 10.5 Sodium Potassium Chloride Carbon Dioxide Anion Gap BUN Creatinine Est GFR ( Amer) Glucose Serum Osmolality 442 H Lactic Acid Calcium Phosphorus Magnesium Total Bilirubin AST Alkaline Phosphatase Ammonia Total Protein Albumin TSH 0.65 Urine Color Urine Appearance Urine pH Ur Specific [place] Urine Protein Urine Glucose (UA) Urine Ketones Urine Blood Urine Nitrite Ur Leukocyte Esterase Urine WBC (Auto) Urine RBC (Auto) Urine Osmolality 05/03/20 05/03/20 05/03/20 02:37 02:37 03:12 WBC RBC Hgb Hct MCV MCH MCHC RDW Plt Count Seg Neutrophils % VBG pH VBG pCO2 VBG HCO3 VBG Base Excess Sodium Potassium Chloride Carbon Dioxide Anion Gap BUN Creatinine Est GFR ( Amer) Glucose Serum Osmolality Lactic Acid Calcium Phosphorus Magnesium Total Bilirubin AST Alkaline Phosphatase Ammonia 13.4 Total Protein Albumin TSH Urine Color YELLOW Urine Appearance CLOUDY Urine pH 5.0 Ur Specific [place] 1.019 Urine Protein >=500 H Urine Glucose (UA) NEGATIVE Urine Ketones NEGATIVE Urine Blood NEGATIVE Urine Nitrite NEGATIVE Ur Leukocyte Esterase MODERATE H Urine WBC (Auto) 38 Urine RBC (Auto) 5 Urine Osmolality 578 05/03/20 05:36 WBC RBC Hgb Hct MCV MCH MCHC RDW Plt Count Seg Neutrophils % VBG pH VBG pCO2 VBG HCO3 VBG Base Excess Sodium Potassium Chloride Carbon Dioxide Anion Gap BUN Creatinine Est GFR ( Amer) Glucose Serum Osmolality Lactic Acid Calcium Phosphorus Magnesium Total Bilirubin AST Alkaline Phosphatase Ammonia Total Protein Albumin TSH Urine Color YELLOW Urine Appearance CLEAR Urine pH 7.0 Ur Specific [place] 1.016 Urine Protein 100 H Urine Glucose (UA) NEGATIVE Urine Ketones NEGATIVE Urine Blood NEGATIVE Urine Nitrite NEGATIVE Ur Leukocyte Esterase NEGATIVE Urine WBC (Auto) 2 Urine RBC (Auto) 1 Urine Osmolality 05/03/20 05/03/20 02:06 02:06 Creatine Kinase 96 Troponin I 0.517 Impressions: Chest X-Ray 05/03/20 01:59 IMPRESSION: Bibasilar atelectasis or scarring with otherwise no acute disease. Head CT 05/03/20 01:59 IMPRESSION: Atrophy and chronic small vessel ischemic changes with old right-sided infarcts and no acute intracranial abnormality. All labs, radiographs, diagnostic studies and EKGs were personally reviewed: Yes In addition, reports of radiographic and diagnostic studies were read: Yes Critical Time Critical Time (minutes): 90 -: The care of a critically ill patient is dynamic. This note represents a static moment in the admission process. Orders and treatments may be given simultaneously and urgently, and time is not branch service representative of the treatment process. This patient requires Critical Care secondary to life threatening organ or limb dysfunction. Without Critical Care services, the patient is at risk for increased mortality and morbidity.
[2020-05-03] MEDS ORDERED: ENOXAPARIN SODIUM INJ 40 MG/0.4 ML DISP.SYRIN SUBCUT SCH (10:00)
[2020-05-03 10:03] LABS: ANION GAP 8 (5-19); CALCIUM 8.4 mg/dL (8.4-10.2); CARBON DIOXIDE 38 mmol/L (22-30); CHLORIDE 117 mmol/L (98-107); POTASSIUM 3.7 mmol/L (3.6-5.0)
[2020-05-03 10:16] LABS: BLOOD UREA NITROGEN 163 mg/dL (7-20); GLUCOSE 409 mg/dL (75-110)
[2020-05-03 10:18] LABS: CREATINE KINASE MB 7.18 ng/mL (<4.55)
[2020-05-03 10:38] LABS: TROPONIN I 0.42 ng/mL
[2020-05-03 10:57] LABS: INTERNATIONAL RATION (INR) 1.38; PROTHROMBIN TIME 17.2 SEC (11.4-15.4)
[2020-05-03 10:58] LABS: PARTIAL THROMBOPLASTIN TIME 34.1 SEC (23.5-35.8)
[2020-05-03] MEDS: METOPROLOL TARTRATE PF/INJ 5 MG/5 ML SDV IV SCH ×3 (12:46→22:59)
[2020-05-03] MEDS: PANTOPRAZOLE SODIUM 40 MG VIAL IV SCH (12:47)
[2020-05-03] MEDS ORDERED: HEPARIN SOD (PORCINE) 1,000 UNIT/ML 10 ML VIAL IV PRN (12:49)
[2020-05-03] MEDS: HEPARIN SODIUM,PORCINE/D5W 25,000 UNIT/250 ML RTUINJ IV PRN (13:24)
[2020-05-03] MEDS ORDERED: DEXTROSE 40% GEL 15 GM TUBE PO PRN ×2 (15:12)
[2020-05-03] MEDS ORDERED: DEXTROSE 50%-WATER 25 GM/50 ML DISP.SYRIN IV PRN ×2 (15:12)
[2020-05-03] MEDS ORDERED: GLUCAGON,HUMAN RECOMB 1 MG INJ IM PRN (15:12)
[2020-05-03] MEDS ORDERED: INSULIN LISPRO 100 UNIT/ML 3 ML VIAL ONE (15:33)
[2020-05-03] MEDS: INSULIN LISPRO 100 UNIT/ML 3 ML VIAL SUBCUT SCH (15:33)
[2020-05-03 16:51] LABS: TROPONIN I 0.331 ng/mL
[2020-05-03] MEDS ORDERED: INSULIN, REGULAR 100 UNIT/100 ML NORMAL SALINE IV PRN ×2 (18:00)
[2020-05-03 20:03] LABS: CREATINE KINASE MB 8.99 ng/mL (<4.55); TROPONIN I 0.272 ng/mL
[2020-05-03] MEDS ORDERED: CEFEPIME 2 GM/D5W RTU 2 GM/50 ML RTUPB IV SCH (22:00)
[2020-05-03] MEDS: CEFEPIME 1 GM/D5W RTU 1 GM/50 ML RTUPB IV SCH (23:00)
[2020-05-03] MEDS ORDERED: NORMAL SALINE 1000 ML 500 ML IV PRN (23:40)
[2020-05-04] MEDS: INSULIN LISPRO 100 UNIT/ML 3 ML VIAL SUBCUT SCH ×4 (00:34→18:23)
[2020-05-04 01:58] LABS: ANION GAP 7 (5-19); CALCIUM 8.6 mg/dL (8.4-10.2); CARBON DIOXIDE 33 mmol/L (22-30); CHLORIDE 127 mmol/L (98-107); GLUCOSE 252 mg/dL (75-110); PHOSPHORUS 2.4 mg/dL (2.5-4.5)
[2020-05-04 02:04] LABS: POTASSIUM 2.9 mmol/L (3.6-5.0)
[2020-05-04 02:05] LABS: BLOOD UREA NITROGEN 146 mg/dL (7-20)
[2020-05-04] MEDS: POTASSI CL 20 MEQ/50 ML RIDER 20 MEQ/50 ML RTUPB IV SCH ×3 (04:10→10:01)
[2020-05-04] MEDS: METOPROLOL TARTRATE PF/INJ 5 MG/5 ML SDV IV SCH ×2 (04:11→09:41)
[2020-05-04 05:56] LABS: ALBUMIN 2.8 g/dL (3.5-5.0); ALKALINE PHOSPHATASE 65 U/L (38-126); ANION GAP 6 (5-19); ASPARTATE AMINO TRANSFERASE 34 U/L (14-36); BILIRUBIN,DIRECT 0.3 mg/dL (0.0-0.4); BILIRUBIN,TOTAL 0.6 mg/dL (0.2-1.3); CALCIUM 8.6 mg/dL (8.4-10.2); CARBON DIOXIDE 36 mmol/L (22-30); CHLORIDE 127 mmol/L (98-107); GLUCOSE 79 mg/dL (75-110); PHOSPHORUS 2.8 mg/dL (2.5-4.5); POTASSIUM 3.1 mmol/L (3.6-5.0); TOTAL PROTEIN 5.6 g/dL (6.3-8.2)
[2020-05-04 06:08] LABS: BLOOD UREA NITROGEN 131 mg/dL (7-20)
[2020-05-04 06:11] LABS: ABSOLUTE LYMPHOCYTES (AUTO) 1.7 10^3/uL (0.5-4.7); ABSOLUTE MONOCYTES (AUTO) 0.8 10^3/uL (0.1-1.4); ABSOLUTE NEUT (AUTO) 10.1 10^3/uL (1.7-8.2); BASOPHILS % (AUTO) 0.3 % (0-2); EOSINOPHILS % (AUTO) 0.2 % (0-6); HEMATOCRIT 35.5 % (36.0-47.0); LYMPHOCYTES % (AUTO) 13.4 % (13-45); MEAN CORPUSCULAR HEMOGLOBIN 29.2 pg (27.0-33.4); MEAN CORPUSCULAR HGB CONC 33.1 g/dL (32.0-36.0); MEAN CORPUSCULAR VOLUME 88 fl (80-97); MONOCYTES % (AUTO) 6.2 % (3-13); RED BLOOD COUNT 4.02 10^6/uL (3.72-5.28); RED CELL DISTRIBUTION WIDTH 17.8 % (11.5-14.0); SEGMENTED NEUTROPHILS % (AUTO) 79.9 % (42-78); TOTAL CELLS COUNTED % (AUTO) 100 %; WHITE BLOOD COUNT 12.7 10^3/uL (4.0-10.5)
[2020-05-04 06:16] LABS: HEMOGLOBIN 11.7 g/dL (12.0-15.5)
[2020-05-04 06:17] LABS: PLATELET COUNT 93 10^3/uL (150-450)
--- NOTE | 2020-05-04 09:36 | RADIOLOGY REPORT (SQ) ---
EXAM DESCRIPTION: CHEST SINGLE VIEW IMAGES COMPLETED DATE/TIME: 05/04/2020 5:59 am REASON FOR STUDY: Pneumonia COMPARISON: 05/03/2020 EXAM PARAMETERS: NUMBER OF VIEWS: One view. TECHNIQUE: Single frontal radiographic view of the chest acquired. RADIATION DOSE: NA LIMITATIONS: None. FINDINGS: LUNGS AND PLEURA: Left pleural reaction. Minimal opacity at the right base. MEDIASTINUM AND HILAR STRUCTURES: Calcified hilar nodes. HEART AND VASCULAR STRUCTURES: Heart normal in size. Normal vasculature. BONES: No acute findings. HARDWARE: None in the chest. OTHER: No other significant finding. IMPRESSION: Left pleural effusion/reaction. Minimal opacity at the right base. TECHNICAL DOCUMENTATION: JOB ID: [id number] [employer]- All Rights Reserved Reading location - IP/workstation name: [email or web address]
[2020-05-04] MEDS: CEFEPIME 1 GM/D5W RTU 1 GM/50 ML RTUPB IV SCH ×2 (09:39→22:18)
[2020-05-04] MEDS: PANTOPRAZOLE SODIUM 40 MG VIAL IV SCH (09:44)
[2020-05-04] MEDS: ASPIRIN 81 MG TABLET, CHEWABLE PO SCH (09:57)
[2020-05-04] MEDS ORDERED: ENOXAPARIN SODIUM INJ 30 MG/0.3 ML DISP.SYRIN SUBCUT SCH (10:00)
[2020-05-04] MEDS ORDERED: LEVOFLOXACIN 750 MG/D5W RTU 750 MG/150 ML RTUPB IV SCH (10:00)
[2020-05-04] MEDS ORDERED: METOPROLOL TARTRATE PF/INJ 5 MG/5 ML SDV IV PRN (10:27)
[2020-05-04] MEDS: LEVOFLOXACIN 500 MG/D5W RTU 500 MG/100 ML RTUPB IV SCH (10:27)
[2020-05-04] MEDS: METOPROLOL TARTRATE 25 MG TABLET GT SCH ×2 (13:37→22:18)
[2020-05-04] MEDS ORDERED: POTASSIUM CHLORIDE 20 MEQ PACKET GT ONE (14:30)
--- NOTE | 2020-05-04 17:28 | PDOC CRITICAL CARE PROG REPORT ---
General Date:: 05/04/20 ICU Day:: 2 Hospital Day:: 2 Resuscitation Status: Do Not Resuscitate Events in the past 12 to 24 Hours:: This 84-year-old -[place] female reformed smoker, long-term resident was admitted to [facility] on 05/03/2020 after presenting with altered mental status over period of several days at the long-term. She was reportedly diagnosed with Pseudomonas urinary tract infection on 05/01/2020 and was started on ceftriaxone. She is noted to have a history of stroke and neurologic residua (aphasia, dementia, immobility). 05/04: Hemodynamically stable. On and off Cardizem infusion in the interim for SVT. Troponins were found to be elevated, for which beta-blockade was initiated. This appears to have greatly reduced her need for diltiazem. Yesterday, she was moaning and groaning continuously. Today, she is awake, appears alert and visually tracks. Does not follow commands. She is not moaning or groaning anymore. Respirations are unlabored; SpO2 98% on room air. Sodium 169. Review of systems relevant to events:: Neurologic: Toxic encephalopathy, post stroke residua (aphasia, dementia, immobility) Genitourinary: Urinary tract infection (Pseudomonas) Skin: Right heel deep tissue injury, stage II sacral decubitus Reason for ICU Addmission:: SVT, AMS - Medications: Medications reviewed and adjusted accordingly: Yes Physical Exam Vital Signs: Temp Pulse Resp BP Pulse Ox 99.0 F 68 14 120/55 L 100 05/04/20 05:52 05/04/20 05:52 05/04/20 05:52 05/04/20 05:52 05/04/20 05:52 Intake & Output 05/03/20 05/04/20 05/05/20 06:59 06:59 06:59 Intake Total 4400 2363 Output Total 1950 Balance 4400 413 Weight 69.9 kg 72.9 kg Weight/Height Weight 72.9 kg Height 1.68 m General appearance: PRESENT: no acute distress, well-developed, well-nourished Head exam: PRESENT: atraumatic, normocephalic Eye exam: PRESENT: conjunctiva pink, EOMI. ABSENT: periorbital swelling, scleral icterus Mouth exam: PRESENT: dry mucosa, tongue midline Neck exam: ABSENT: carotid bruit, JVD, lymphadenopathy, thyromegaly Respiratory exam: PRESENT: rales. ABSENT: rhonchi, wheezes Cardiovascular exam: PRESENT: RRR. ABSENT: diastolic murmur, rubs, systolic murmur Pulses: PRESENT: normal dorsalis pedis pul GI/Abdominal exam: PRESENT: normal bowel sounds, soft. ABSENT: distended, guarding, mass, organolmegaly, rebound, tenderness Extremities exam: PRESENT: full ROM. ABSENT: calf tenderness, clubbing, pedal edema Neurological exam: PRESENT: alert, awake, aphasic Psychiatric exam: ABSENT: agitated, anxious Skin exam: PRESENT: dry, warm, other - Right heel deep tissue injury; stage II sacral decubitus Laboratory/Radiographs Laboratory Results: 05/04/20 05:20 05/03/20 05/03/20 05/03/20 08:00 15:30 16:07 WBC RBC Hgb Hct MCV MCH MCHC RDW Plt Count Seg Neutrophils % Sodium 163.4 H 161.8 H Potassium 3.7 Chloride 117 H Carbon Dioxide 38 H Anion Gap 8 BUN 163 H D Creatinine 1.66 H Est GFR ( Amer) 36 L Glucose 409 H* Lactic Acid 2.0 Calcium 8.4 Ionized Calcium Michael Phosphorus Magnesium Total Bilirubin AST Alkaline Phosphatase Total Protein Albumin 05/03/20 05/03/20 05/04/20 19:15 21:40 01:00 WBC RBC Hgb Hct MCV MCH MCHC RDW Plt Count Seg Neutrophils % Sodium 161.7 H 164.6 H 166.6 H Potassium 2.9 L* Chloride 127 H Carbon Dioxide 33 H Anion Gap 7 BUN 146 H Creatinine 1.47 H Est GFR ( Amer) 41 L Glucose 252 H Lactic Acid Calcium 8.6 Ionized Calcium Michael Phosphorus 2.4 L Magnesium 3.1 H Total Bilirubin AST Alkaline Phosphatase Total Protein Albumin 05/04/20 05/04/20 05/04/20 05:20 05:20 05:20 WBC 12.7 H RBC 4.02 Hgb 11.7 L D Hct 35.5 L MCV 88 MCH 29.2 MCHC 33.1 RDW 17.8 H Plt Count 93 L Seg Neutrophils % 79.9 H Sodium 169.0 H Potassium 3.1 L Chloride 127 H Carbon Dioxide 36 H Anion Gap 6 BUN 131 H Creatinine 1.45 H Est GFR ( Amer) 42 L Glucose 79 Lactic Acid Calcium 8.6 Ionized Calcium Michael 1.10 L Phosphorus 2.8 Magnesium 3.1 H Total Bilirubin 0.6 AST 34 Alkaline Phosphatase 65 Total Protein 5.6 L Albumin 2.8 L 05/03/20 05/03/20 05/03/20 02:06 02:06 08:00 Creatine Kinase 96 CK-MB (CK-2) 7.18 H Troponin I 0.517 0.420 NT-Pro-B Natriuret Pep 05/03/20 05/03/20 05/04/20 16:07 19:15 05:20 Creatine Kinase CK-MB (CK-2) 10.00 H 8.99 H Troponin I 0.331 0.272 NT-Pro-B Natriuret Pep 4980 H Impressions: Head CT 05/03/20 01:59 IMPRESSION: Atrophy and chronic small vessel ischemic changes with old right-sided infarcts and no acute intracranial abnormality. Chest X-Ray 05/04/20 05:00 IMPRESSION: Left pleural effusion/reaction. Minimal opacity at the right base. All labs, radiographs, diagnostic studies and EKGs were personally reviewed: Yes In addition, reports of radiographic and diagnostic studies were read: Yes Assessment and Plan - Diagnosis (1) Severe sepsis Is this a current diagnosis for this admission?: Yes Plan: * Continue cefepime/levofloxacin for Pseudomonas urinary tract infection. (2) Urinary tract infection Qualifiers: Urinary tract infection type: acute cystitis Hematuria presence: without hematuria Qualified Code(s): N30.00 - Acute cystitis without hematuria Is this a current diagnosis for this admission?: Yes (3) NSTEMI (non-ST elevated myocardial infarction) Is this a current diagnosis for this admission?: Yes Plan: * Continue heparin infusion. * Aspirin 81 mg p.o. daily. * Change metoprolol to 5 mg IV every 6 hours as needed. * Start Lopressor 25 mg PEG twice daily. (4) Acute hypernatremia Is this a current diagnosis for this admission?: Yes Plan: * Monitor sodium every 4 hours. * Target correction rate 12 mEq over 24 hours (2 mEq every 4 hours). * Start free water flushes (150 mL every 4 hours). (5) Acute renal failure superimposed on stage 3 chronic kidney disease Qualifiers: Acute renal failure type: unspecified Chronic kidney disease stage 3 subtype: stage 3a (GFR 45-59) Qualified Code(s): N17.9 - Acute kidney failure, unspecified; N18.31 - Chronic kidney disease, stage 3a Is this a current diagnosis for this admission?: Yes Plan: * Avoid nephrotoxic medications. * Renal dosing of medications. (6) Severe dehydration Is this a current diagnosis for this admission?: Yes (7) Altered mental status Qualifiers: Altered mental status type: delirium Qualified Code(s): R41.0 - Disorientation, unspecified Is this a current diagnosis for this admission?: Yes (8) SVT (supraventricular tachycardia) Is this a current diagnosis for this admission?: Yes (9) Dementia Qualifiers: Dementia type: unspecified type Is this a current diagnosis for this admission?: Yes (10) Hypokalemia Is this a current diagnosis for this admission?: Yes Critical Time Critical Time (minutes): 60 Level of Care: ICU -: 1. The care of a critical patient is a dynamic process. This note is a passenger relations representative synopsis but static in nature. The timeframe for treatments given in order is not necessarily the actual time these treatments may have been done. 2. This patient requires critical care secondary to ongoing requirements for therapy not offered or safe outside the critical care environment. Transfer to a lower level of care will result in altered life or limb morbidity and mortality. 3. Multidisciplinary rounds completed. 4. ABCDE bundle addressed.
[2020-05-04 18:23] LABS: POTASSIUM 3.5 mmol/L (3.6-5.0)
[2020-05-04] MEDS ORDERED: MIDAZOLAM 2 MG/2 ML INJ IV ONE (22:00)
[2020-05-04] MEDS: HEPARIN SODIUM,PORCINE/D5W 25,000 UNIT/250 ML RTUINJ IV PRN (22:17)
[2020-05-05] MEDS ORDERED: MIDAZOLAM 2 MG/2 ML INJ ONE (00:27)
[2020-05-05] MEDS: INSULIN LISPRO 100 UNIT/ML 3 ML VIAL SUBCUT SCH ×4 (00:33→18:20)
[2020-05-05] MEDS ORDERED: VANCOMYCIN HCL INJ 1000 MG VIAL IV ONE (05:59)
[2020-05-05] MEDS ORDERED: PHARMACY COMMUNICATION ORDER MC NR (06:15)
[2020-05-05] MEDS ORDERED: VANCOMYCIN HCL INJ 1000 MG VIAL IV PRN (06:45)
[2020-05-05] MEDS ORDERED: VANCOMYCIN HCL 1,500 MG in DEXTROSE 5%-WATER 250 ML IV ONE ×2 (06:45→08:00)
[2020-05-05 06:55] LABS: ABSOLUTE BASOPHILS # (AUTO) 0.1 10^3/uL (0.0-0.2); ABSOLUTE EOSINOPHILS # (AUTO) 0.1 10^3/uL (0.0-0.6); ABSOLUTE LYMPHOCYTES (AUTO) 1.4 10^3/uL (0.5-4.7); ABSOLUTE MONOCYTES (AUTO) 0.5 10^3/uL (0.1-1.4); ABSOLUTE NEUT (AUTO) 8.7 10^3/uL (1.7-8.2); BASOPHILS % (AUTO) 0.5 % (0-2); EOSINOPHILS % (AUTO) 1.1 % (0-6); HEMATOCRIT 35.2 % (36.0-47.0); HEMOGLOBIN 11.5 g/dL (12.0-15.5); MEAN CORPUSCULAR HEMOGLOBIN 29.4 pg (27.0-33.4); MEAN CORPUSCULAR HGB CONC 32.8 g/dL (32.0-36.0); MEAN CORPUSCULAR VOLUME 90 fl (80-97); RED BLOOD COUNT 3.92 10^6/uL (3.72-5.28); RED CELL DISTRIBUTION WIDTH 17.6 % (11.5-14.0); SEGMENTED NEUTROPHILS % (AUTO) 80.4 % (42-78); TOTAL CELLS COUNTED % (AUTO) 100 %; WHITE BLOOD COUNT 10.8 10^3/uL (4.0-10.5)
[2020-05-05 07:27] LABS: ALBUMIN 2.7 g/dL (3.5-5.0); ALKALINE PHOSPHATASE 74 U/L (38-126); ANION GAP 7 (5-19); ASPARTATE AMINO TRANSFERASE 53 U/L (14-36); BILIRUBIN,DIRECT 0.2 mg/dL (0.0-0.4); BILIRUBIN,TOTAL 0.5 mg/dL (0.2-1.3); BLOOD UREA NITROGEN 102 mg/dL (7-20); CARBON DIOXIDE 35 mmol/L (22-30); CHLORIDE 126 mmol/L (98-107); GLUCOSE 264 mg/dL (75-110); PHOSPHORUS 3.2 mg/dL (2.5-4.5); POTASSIUM 3.4 mmol/L (3.6-5.0); TOTAL PROTEIN 5.5 g/dL (6.3-8.2)
[2020-05-05 07:39] LABS: PLATELET COUNT 94 10^3/uL (150-450)
[2020-05-05] MEDS ORDERED: POTASSI CL 40 MEQ/D5-1/2NS 1L 40 MEQ/1,000 ML RTUINJ IV PRN (07:39)
[2020-05-05] MEDS ORDERED: NORMAL SALINE 1000 ML 500 ML IV PRN (07:40)
[2020-05-05] MEDS: LEVOFLOXACIN 500 MG/D5W RTU 500 MG/100 ML RTUPB IV SCH (08:16)
--- NOTE | 2020-05-05 09:19 | RADIOLOGY REPORT (SQ) ---
EXAM DESCRIPTION: CHEST SINGLE VIEW IMAGES COMPLETED DATE/TIME: 05/05/2020 5:47 am REASON FOR STUDY: Pneumonia COMPARISON: 05/04/2020 EXAM PARAMETERS: NUMBER OF VIEWS: One view. TECHNIQUE: Single frontal radiographic view of the chest acquired. RADIATION DOSE: NA LIMITATIONS: None. FINDINGS: LUNGS AND PLEURA: Persistent left pleural reaction. Improved aeration of the right lung b ase. MEDIASTINUM AND HILAR STRUCTURES: No masses. Contour normal. HEART AND VASCULAR STRUCTURES: Heart normal in size. Normal vasculature. BONES: No acute findings. HARDWARE: None in the chest. OTHER: No other significant finding. IMPRESSION: Minimal improvement. TECHNICAL DOCUMENTATION: JOB ID: [id number] [employer]- All Rights Reserved Reading location - IP/workstation name: [email or web address]
[2020-05-05] MEDS: CEFEPIME 1 GM/D5W RTU 1 GM/50 ML RTUPB IV SCH ×2 (10:17→22:20)
[2020-05-05] MEDS: APIXABAN 2.5 MG TABLET GT SCH ×2 (10:17→18:25)
[2020-05-05] MEDS: METOPROLOL TARTRATE 25 MG TABLET GT SCH ×2 (10:17→22:20)
[2020-05-05] MEDS: PANTOPRAZOLE SODIUM 40 MG VIAL IV SCH (10:17)
[2020-05-05] MEDS: ASPIRIN 81 MG TABLET, CHEWABLE PO SCH (10:19)
[2020-05-05 11:18] LABS: ANION GAP 6 (5-19); BLOOD UREA NITROGEN 93 mg/dL (7-20); CALCIUM 8.7 mg/dL (8.4-10.2); CARBON DIOXIDE 34 mmol/L (22-30); CHLORIDE 126 mmol/L (98-107); GLUCOSE 288 mg/dL (75-110); POTASSIUM 3.3 mmol/L (3.6-5.0)
[2020-05-05] MEDS ORDERED: POTASSIUM CHLORIDE 20 MEQ PACKET GT ONE (12:00)
[2020-05-05] MEDS ORDERED: VANCOMYCIN HCL 1,000 MG in DEXTROSE 5%-WATER 250 ML IV SCH (18:00)
--- NOTE | 2020-05-05 19:22 | PDOC CRITICAL CARE PROG REPORT ---
General Date:: 05/05/20 ICU Day:: 3 Hospital Day:: 3 Resuscitation Status: Do Not Resuscitate Events in the past 12 to 24 Hours:: This 84-year-old -[place] female reformed smoker, long term resident was admitted to [facility] on 05/03/2020 after presenting with altered mental status over period of several days at the long term. She was reportedly diagnosed with Pseudomonas urinary tract infection on 05/01/2020 and was started on ceftriaxone. She is noted to have a history of stroke and neurologic residua (aphasia, dementia, immobility). 05/04: Hemodynamically stable. On and off Cardizem infusion in the interim for SVT. Troponins were found to be elevated, for which beta-blockade was initiated. This appears to have greatly reduced her need for diltiazem. Yesterday, she was moaning and groaning continuously. Today, she is awake, appears alert and visually tracks. Does not follow commands. She is not moaning or groaning anymore. Respirations are unlabored; SpO2 98% on room air. Sodium 169. 05/05: Hemodynamically stable. Off Cardizem infusion. Troponin has been steadily downtrending. Now, back to moaning and groaning. However, she is awake, alert and does follow commands. Respirations are unlabored. Sodium 168. Creatinine 1.25. proBNP 4980>4000. Urine cultures show no growth to date (previously isolated Pseudomonas). Started on cefepime/levofloxacin. Blood cultures isolating gram-positive cocci in chains and gram-positive rods in 1 of 2 bottles. It is likely a contaminant. Nonetheless, the patient was started on vancomycin overnight. Review of systems relevant to events:: Neurologic: Toxic encephalopathy, post stroke residua (aphasia, dementia, immobility) Genitourinary: Urinary tract infection (Pseudomonas) Skin: Right heel deep tissue injury, stage II sacral decubitus Reason for ICU Addmission:: SVT, AMS - Medications: Medications reviewed and adjusted accordingly: Yes Physical Exam Vital Signs: Temp Pulse Resp BP Pulse Ox 97.7 F 72 12 128/65 H 100 05/05/20 06:47 05/05/20 05:41 05/05/20 06:47 05/05/20 06:47 05/05/20 06:47 Intake & Output 1105/05/20 05/06/20 06:59 06:59 06:59 Intake Total 2368 1596 Output Total 0718 1625 200 Balance 413 -29 -200 Weight 72.9 kg 70.8 kg Weight/Height Weight 70.8 kg Height 1.68 m General appearance: PRESENT: no acute distress, well-developed, well-nourished Head exam: PRESENT: atraumatic, normocephalic Eye exam: PRESENT: conjunctiva pink, EOMI, PERRLA. ABSENT: periorbital swelling, scleral icterus Mouth exam: PRESENT: dry mucosa, tongue midline Neck exam: ABSENT: carotid bruit, JVD, lymphadenopathy, thyromegaly Respiratory exam: PRESENT: rales, symmetrical, unlabored. ABSENT: prolonged expiratory phas, rhonchi, tachypnea, wheezes Cardiovascular exam: PRESENT: RRR. ABSENT: diastolic murmur, rubs, systolic murmur Pulses: PRESENT: normal dorsalis pedis pul GI/Abdominal exam: PRESENT: normal bowel sounds, soft. ABSENT: distended, guarding, mass, organolmegaly, rebound, tenderness Gentrourinary exam: PRESENT: indwelling catheter Extremities exam: PRESENT: full ROM. ABSENT: calf tenderness, clubbing, pedal edema Musculoskeletal exam: PRESENT: normal inspection Neurological exam: PRESENT: alert, awake, reflexes normal, CN II-XII grossly intact, motor sensory deficit - Left hemiparesis, aphasic Psychiatric exam: ABSENT: agitated, anxious Skin exam: PRESENT: other - Right heel deep tissue injury; stage II sacral decubitus Tubes/Lines: PRESENT: Peg Tube Laboratory/Radiographs Laboratory Results: 05/05/20 06:28 05/05/20 06:28 05/04/20 05/04/20 05/04/20 09:55 09:55 15:05 WBC RBC Hgb Hct MCV MCH MCHC RDW Plt Count Seg Neutrophils % Sodium 171.4 H* 168.8 H Potassium 3.1 L Chloride Carbon Dioxide Anion Gap BUN Creatinine Est GFR ( Amer) Glucose Calcium Phosphorus Magnesium Total Bilirubin AST Alkaline Phosphatase Total Protein Albumin 05/04/20 05/04/20 05/05/20 18:00 22:00 02:00 WBC RBC Hgb Hct MCV MCH MCHC RDW Plt Count Seg Neutrophils % Sodium 166.9 H 168.1 H 165.8 H Potassium 3.5 L Chloride Carbon Dioxide Anion Gap BUN Creatinine Est GFR ( Amer) Glucose Calcium Phosphorus Magnesium Total Bilirubin AST Alkaline Phosphatase Total Protein Albumin 05/05/20 05/05/20 06:28 06:28 WBC 10.8 H RBC 3.92 Hgb 11.5 L Hct 35.2 L MCV 90 MCH 29.4 MCHC 32.8 RDW 17.6 H Plt Count 94 L Seg Neutrophils % 80.4 H Sodium 168.4 H Potassium 3.4 L Chloride 126 H Carbon Dioxide 35 H Anion Gap 7 BUN 102 H Creatinine 1.25 Est GFR ( Amer) 49 L Glucose 264 H Calcium 9.0 Phosphorus 3.2 Magnesium 3.2 H Total Bilirubin 0.5 AST 53 H Alkaline Phosphatase 74 Total Protein 5.5 L Albumin 2.7 L 05/03/20 03:12 Blood Blood Culture (PCR) - Final 05/03/20 05/03/20 05/03/20 02:06 02:06 08:00 Creatine Kinase 96 CK-MB (CK-2) 7.18 H Troponin I 0.517 0.420 NT-Pro-B Natriuret Pep 05/03/20 05/03/20 05/04/20 16:07 19:15 05:20 Creatine Kinase CK-MB (CK-2) 10.00 H 8.99 H Troponin I 0.331 0.272 NT-Pro-B Natriuret Pep 4980 H 05/05/20 06:28 Creatine Kinase CK-MB (CK-2) Troponin I NT-Pro-B Natriuret Pep 4000 H Impressions: Head CT 05/03/20 01:59 IMPRESSION: Atrophy and chronic small vessel ischemic changes with old right-sided infarcts and no acute intracranial abnormality. Chest X-Ray 05/05/20 05:00 IMPRESSION: Minimal improvement. All labs, radiographs, diagnostic studies and EKGs were personally reviewed: Yes In addition, reports of radiographic and diagnostic studies were read: Yes Assessment and Plan - Diagnosis (1) Severe sepsis Is this a current diagnosis for this admission?: Yes Plan: * Improving. * Continue cefepime/levofloxacin for Pseudomonas urinary tract infection. * Started on vancomycin overnight. Blood cultures likely reflect contamination. Should be able to stop vancomycin on the fourth day (after doses on 05/07) in the absence of compelling indication for continued use. (2) Urinary tract infection Qualifiers: Urinary tract infection type: acute cystitis Hematuria presence: without hematuria Qualified Code(s): N30.00 - Acute cystitis without hematuria Is this a current diagnosis for this admission?: Yes (3) NSTEMI (non-ST elevated myocardial infarction) Is this a current diagnosis for this admission?: Yes Plan: * Stop heparin infusion. Restart home Eliquis. * Aspirin 81 mg p.o. daily. * Change metoprolol to 5 mg IV every 6 hours as needed. * Continue Lopressor 25 mg PEG twice daily. (4) Acute hypernatremia Is this a current diagnosis for this admission?: Yes Plan: * Monitor sodium every 4 hours. * Target correction rate 12 mEq over 24 hours (2 mEq every 4 hours). * Continue free water flushes (150 mL every 4 hours). * Start IV fluids: D5-1/2NS+40 mEq KCl @ 75 mL/h. (5) Acute renal failure superimposed on stage 3 chronic kidney disease Qualifiers: Acute renal failure type: unspecified Chronic kidney disease stage 3 subtype: stage 3a (GFR 45-59) Qualified Code(s): N17.9 - Acute kidney failure, unspecified; N18.31 - Chronic kidney disease, stage 3a Is this a current diagnosis for this admission?: Yes Plan: * Avoid nephrotoxic medications. * Renal dosing of medications. (6) Severe dehydration Is this a current diagnosis for this admission?: Yes (7) Altered mental status Qualifiers: Altered mental status type: delirium Qualified Code(s): R41.0 - Disorientation, unspecified Is this a current diagnosis for this admission?: Yes Plan: Improving. Dementia at baseline. (8) SVT (supraventricular tachycardia) Is this a current diagnosis for this admission?: Yes (9) Dementia Qualifiers: Dementia type: unspecified type Is this a current diagnosis for this admission?: Yes (10) Hypokalemia Is this a current diagnosis for this admission?: Yes Plan: Replete. Critical Time Critical Time (minutes): 60 Level of Care: ICU -: 1. The care of a critical patient is a dynamic process. This note is a rep resentative synopsis but static in nature. The timeframe for treatments given in order is not necessarily the actual time these treatments may have been done. 2. This patient requires critical care secondary to ongoing requirements for therapy not offered or safe outside the critical care environment. Transfer to a lower level of care will result in altered life or limb morbidity and mortality. 3. Multidisciplinary rounds completed. 4. ABCDE bundle addressed.
[2020-05-05] MEDS ORDERED: 1/2 NORMAL SALINE 1,000 ML IV PRN (20:41)
[2020-05-05] MEDS: POTASSI CL 20 MEQ/1/2NS 1L 20 MEQ/1,000 ML RTUINJ IV PRN (21:17)
[2020-05-05] MEDS ORDERED: INSULIN GLARGINE,HUM.REC.ANLOG 1,000 UNIT/10 ML VIAL (PYX) SUBCUT ONE (22:17)
[2020-05-05] MEDS: INSULIN GLARGINE,HUM.REC.ANLOG 1,000 UNIT/10 ML VIAL SUBCUT SCH (22:20)
[2020-05-06] MEDS: INSULIN LISPRO 100 UNIT/ML 3 ML VIAL SUBCUT SCH ×9 (00:16→23:57)
[2020-05-06 02:36] LABS: ABSOLUTE EOSINOPHILS # (AUTO) 0.1 10^3/uL (0.0-0.6); ABSOLUTE LYMPHOCYTES (AUTO) 1.4 10^3/uL (0.5-4.7); ABSOLUTE MONOCYTES (AUTO) 0.4 10^3/uL (0.1-1.4); ABSOLUTE NEUT (AUTO) 8.5 10^3/uL (1.7-8.2); BASOPHILS % (AUTO) 0.1 % (0-2); HEMATOCRIT 32.6 % (36.0-47.0); HEMOGLOBIN 10.6 g/dL (12.0-15.5); LYMPHOCYTES % (AUTO) 13.2 % (13-45); MEAN CORPUSCULAR HEMOGLOBIN 29.5 pg (27.0-33.4); MEAN CORPUSCULAR HGB CONC 32.6 g/dL (32.0-36.0); MEAN CORPUSCULAR VOLUME 91 fl (80-97); MONOCYTES % (AUTO) 4.2 % (3-13); RED BLOOD COUNT 3.59 10^6/uL (3.72-5.28); RED CELL DISTRIBUTION WIDTH 17.7 % (11.5-14.0); SEGMENTED NEUTROPHILS % (AUTO) 81.5 % (42-78); TOTAL CELLS COUNTED % (AUTO) 100 %; WHITE BLOOD COUNT 10.4 10^3/uL (4.0-10.5)
[2020-05-06 02:49] LABS: ALBUMIN 2.4 g/dL (3.5-5.0); ALKALINE PHOSPHATASE 67 U/L (38-126); ASPARTATE AMINO TRANSFERASE 65 U/L (14-36); BILIRUBIN,DIRECT 0.2 mg/dL (0.0-0.4); BILIRUBIN,TOTAL 0.5 mg/dL (0.2-1.3); CALCIUM 8.7 mg/dL (8.4-10.2); CARBON DIOXIDE 34 mmol/L (22-30); CHLORIDE 124 mmol/L (98-107); GLUCOSE 329 mg/dL (75-110); PHOSPHORUS 2.5 mg/dL (2.5-4.5); POTASSIUM 4.1 mmol/L (3.6-5.0); TOTAL PROTEIN 4.8 g/dL (6.3-8.2)
[2020-05-06 02:53] LABS: ANION GAP 3 (5-19); BLOOD UREA NITROGEN 66 mg/dL (7-20)
[2020-05-06 02:56] LABS: PLATELET COUNT 92 10^3/uL (150-450)
[2020-05-06 07:27] LABS: BLOOD UREA NITROGEN 62 mg/dL (7-20); CARBON DIOXIDE 32 mmol/L (22-30); CHLORIDE 127 mmol/L (98-107); GLUCOSE 190 mg/dL (75-110); POTASSIUM 4.1 mmol/L (3.6-5.0)
[2020-05-06 07:38] LABS: ANION GAP 4 (5-19)
--- NOTE | 2020-05-06 08:45 | RADIOLOGY REPORT (SQ) ---
EXAM DESCRIPTION: CHEST SINGLE VIEW IMAGES COMPLETED DATE/TIME: 05/06/2020 5:44 am REASON FOR STUDY: Pneumonia COMPARISON: Multiple chest films since 01/29/2020, most recently 05/15/2020 CT angio neck 01/29/2020 EXAM PARAMETERS: NUMBER OF VIEWS: One view. TECHNIQUE: Single frontal radiographic view of the chest acquired. RADIATION DOSE: NA LIMITATIONS: None. FINDINGS: LUNGS AND PLEURA: No opacities, masses or pneumothorax. No pleural effusion. MEDIASTINUM AND HILAR STRUCTURES: There is fullness along the right thoracic inlet from a right lower pole thyroid mass and adjacent brachiocephalic artery. HEART AND VASCULAR STRUCTURES: Stable borderline cardiomegaly BONES: Diffuse thoracic spondylotic change HARDWARE: None in the chest. OTHER: No other significant finding. IMPRESSION: No acute infiltrates TECHNICAL DOCUMENTATION: JOB ID: [id number] 2010 [employer]- All Rights Reserved Reading location - IP/workstation name: [email or web address]
[2020-05-06] MEDS: ASPIRIN 81 MG TABLET, CHEWABLE PO SCH (09:22)
[2020-05-06] MEDS: CEFEPIME 1 GM/D5W RTU 1 GM/50 ML RTUPB IV SCH ×2 (09:22→21:00)
[2020-05-06] MEDS: PANTOPRAZOLE SODIUM 40 MG VIAL IV SCH (09:22)
[2020-05-06] MEDS: APIXABAN 2.5 MG TABLET GT SCH (09:22)
[2020-05-06] MEDS: METOPROLOL TARTRATE 25 MG TABLET GT SCH ×2 (09:23→21:01)
[2020-05-06] MEDS: LEVOFLOXACIN 500 MG/D5W RTU 500 MG/100 ML RTUPB IV SCH (09:30)
[2020-05-06] MEDS: POTASSI CL 20 MEQ/1/2NS 1L 20 MEQ/1,000 ML RTUINJ IV PRN ×2 (09:31→20:58)
[2020-05-06 10:24] LABS: ANION GAP 5 (5-19); BLOOD UREA NITROGEN 60 mg/dL (7-20); CALCIUM 8.8 mg/dL (8.4-10.2); CARBON DIOXIDE 28 mmol/L (22-30); CHLORIDE 128 mmol/L (98-107); GLUCOSE 183 mg/dL (75-110); POTASSIUM 4.3 mmol/L (3.6-5.0)
--- NOTE | 2020-05-06 11:12 | PDOC CRITICAL CARE PROG REPORT ---
General Date:: 05/06/20 Hospital Day:: 3 Resuscitation Status: Do Not Resuscitate Events in the past 12 to 24 Hours:: On different antibiotics. Afebrile and beginning to awaken. Review of systems relevant to events:: CV, neurological. Reason for ICU Addmission:: SVT, AMS - Medications: Medications reviewed and adjusted accordingly: Yes Vasopressors:: None Sedation:: None Physical Exam Vital Signs: Temp Pulse Resp BP Pulse Ox 98.6 F 71 13 131/56 H 100 05/06/20 10:00 05/06/20 07:00 05/06/20 10:00 05/06/20 09:47 05/06/20 10:00 Intake & Output 05/05/20 05/06/20 05/07/20 06:59 06:59 06:59 Intake Total 1646 1190 1147 Output Total 1625 1375 115 Balance 21 -185 1032 Weight 70.8 kg 72 kg Weight/Height Weight 72 kg Height 5 ft 6 in General appearance: PRESENT: no acute distress Head exam: PRESENT: atraumatic, normocephalic Eye exam: PRESENT: conjunctiva pink, EOMI, PERRLA. ABSENT: scleral icterus Ear exam: PRESENT: normal external ear exam Mouth exam: PRESENT: moist, tongue midline Respiratory exam: PRESENT: clear to auscultation marija. ABSENT: rales, rhonchi, wheezes Cardiovascular exam: PRESENT: RRR. ABSENT: diastolic murmur, rubs, systolic murmur GI/Abdominal exam: PRESENT: normal bowel sounds, soft, other - PEG site clean. ABSENT: distended, guarding, mass, organolmegaly, rebound, tenderness Rectal exam: PRESENT: deferred Gentrourinary exam: PRESENT: indwelling catheter Extremities exam: PRESENT: full ROM. ABSENT: calf tenderness, clubbing, pedal edema Neurological exam: PRESENT: altered, CN II-XII grossly intact, aphasic, other - She will look and make eye contact but does not speak. Skin exam: PRESENT: dry, intact, warm. ABSENT: cyanosis, rash Tubes/Lines: PRESENT: Peg Tube Laboratory/Radiographs Laboratory Results: 05/06/20 02:00 05/06/20 09:55 05/05/20 05/05/20 05/05/20 10:28 10:28 14:25 WBC RBC Hgb Hct MCV MCH MCHC RDW Plt Count Seg Neutrophils % Sodium 166.2 H 166.2 H 165.6 H Potassium 3.3 L Chloride 126 H Carbon Dioxide 34 H Anion Gap 6 BUN 93 H Creatinine 1.16 Est GFR ( Amer) 54 L Glucose 288 H Calcium 8.7 Phosphorus Magnesium Total Bilirubin AST Alkaline Phosphatase Total Protein Albumin 05/05/20 05/05/20 05/06/20 18:30 22:06 02:00 WBC RBC Hgb Hct MCV MCH MCHC RDW Plt Count Seg Neutrophils % Sodium 164.4 H 164.6 H 161.1 H Potassium 4.1 Chloride 124 H Carbon Dioxide 34 H Anion Gap 3 L BUN 66 H D Creatinine 1.08 Est GFR ( Amer) 58 L Glucose 329 H Calcium 8.7 Phosphorus 2.5 Magnesium 2.7 H Total Bilirubin 0.5 AST 65 H Alkaline Phosphatase 67 Total Protein 4.8 L Albumin 2.4 L 05/06/20 05/06/20 05/06/20 02:00 06:40 09:55 WBC 10.4 RBC 3.59 L Hgb 10.6 L Hct 32.6 L MCV 91 MCH 29.5 MCHC 32.6 RDW 17.7 H Plt Count 92 L Seg Neutrophils % 81.5 H Sodium 163.0 H 161.3 H Potassium 4.1 4.3 Chloride 127 H 128 H Carbon Dioxide 32 H 28 Anion Gap 4 L 5 BUN 62 H 60 H Creatinine 1.03 0.99 Est GFR ( Amer) > 60 > 60 Glucose 190 H 183 H Calcium 9.0 8.8 Phosphorus Magnesium Total Bilirubin AST Alkaline Phosphatase Total Protein Albumin 05/03/20 03:12 Blood Blood Culture (PCR) - Final 05/03/20 02:37 Catheterized Urine Urine Culture - Final NO GROWTH 2 DAYS 05/03/20 05/03/20 05/03/20 02:06 02:06 08:00 Creatine Kinase 96 CK-MB (CK-2) 7.18 H Troponin I 0.517 0.420 NT-Pro-B Natriuret Pep 05/03/20 05/03/20 05/04/20 16:07 19:15 05:20 Creatine Kinase CK-MB (CK-2) 10.00 H 8.99 H Troponin I 0.331 0.272 NT-Pro-B Natriuret Pep 4980 H 05/05/20 05/06/20 06:28 02:00 Creatine Kinase CK-MB (CK-2) Troponin I NT-Pro-B Natriuret Pep 4000 H 6250 H Impressions: Head CT 05/03/20 01:59 IMPRESSION: Atrophy and chronic small vessel ischemic changes with old right-sided infarcts and no acute intracranial abnormality. Chest X-Ray 05/06/20 05:00 IMPRESSION: No acute infiltrates EKG: SR at 74 now. All labs, radiographs, diagnostic studies and EKGs were personally reviewed: Yes In addition, reports of radiographic and diagnostic studies were read: Yes Assessment and Plan - Diagnosis (1) Acute hypernatremia Is this a current diagnosis for this admission?: Yes Plan: Level is 161.Started at 168. Would like to see it at < 150. I'm sure this is impacting her mental status which seems to be improving (2) Altered mental status Qualifiers: Altered mental status type: delirium Qualified Code(s): R41.0 - Disorientation, unspecified Is this a current diagnosis for this admission?: Yes Plan: This is multifactorial and due to hypernatremia, dementia, old stroke, recent UTI. (3) Severe dehydration Is this a current diagnosis for this admission?: Yes Plan: Improving with rehydration but her BUN is still quite high. (4) Urinary tract infection Qualifiers: Urinary tract infection type: acute cystitis Hematuria presence: without hematuria Qualified Code(s): N30.00 - Acute cystitis without hematuria Is this a current diagnosis for this admission?: Yes Plan: Not in most recent urine culture, but by report a pseudomonas UTI not sensitive to the antibiotics she was on does explain fever. (5) Dementia Qualifiers: Dementia type: unspecified type Is this a current diagnosis for this admission?: Yes Plan: We're still not sure of baseline MS. However, with a PEG I doubt it is normal. Plan Summary: At this point she does not require ICU placement but with a sodium of 162, she will not be sent back to the SNF for a few days. Critical Time Critical Time (minutes): 35 Level of Care: IMCU Anticipated discharge: SNF Anticipated DC Timeframe: Other -: 1. The care of a critical patient is a dynamic process. This note is a employment representative synopsis but static in nature. The timeframe for treatments given in order is not necessarily the actual time these treatments may have been done. 2. This patient requires critical care secondary to ongoing requirements for therapy not offered or safe outside the critical care environment. Transfer to a lower level of care will result in altered life or limb morbidity and mortality. 3. Multidisciplinary rounds completed. 4. ABCDE bundle addressed.
[2020-05-06] MEDS: MULTIVITAMIN ORAL LIQUID 60 ML PEG SCH (14:26)
[2020-05-06] MEDS: HYDRALAZINE HCL 50 MG TABLET PEG SCH ×2 (14:28→21:01)
[2020-05-06 15:07] LABS: BLOOD UREA NITROGEN 53 mg/dL (7-20); CALCIUM 8.7 mg/dL (8.4-10.2); CARBON DIOXIDE 31 mmol/L (22-30); GLUCOSE 198 mg/dL (75-110); POTASSIUM 3.8 mmol/L (3.6-5.0)
[2020-05-06 15:13] LABS: ANION GAP 5 (5-19); CHLORIDE 124 mmol/L (98-107)
[2020-05-06] MEDS: MEMANTINE HCL 10 MG TABLET PEG SCH (17:59)
[2020-05-06] MEDS: DOCUSATE SODIUM 100 MG/10 ML UDC PEG SCH (17:59)
[2020-05-06] MEDS: FAMOTIDINE 20 MG TABLET PEG SCH (17:59)
[2020-05-06] MEDS: APIXABAN 2.5 MG TABLET PEG SCH (17:59)
[2020-05-06] MEDS: ATORVASTATIN CALCIUM 40 MG TABLET PEG SCH (17:59)
[2020-05-06] MEDS ORDERED: (PENDING PHARMACY ID) (Sennosides [Senna] 17.2 MG) PEG SCH (18:00)
[2020-05-06] MEDS ORDERED: (PENDING PHARMACY ID) (Multivitamin With Minerals [One Daily Plus Minerals] 1 EACH) PEG SCH (18:00)
[2020-05-06 19:31] LABS: ANION GAP 5 (5-19); BLOOD UREA NITROGEN 52 mg/dL (7-20); CALCIUM 8.7 mg/dL (8.4-10.2); CARBON DIOXIDE 30 mmol/L (22-30); CHLORIDE 123 mmol/L (98-107); GLUCOSE 183 mg/dL (75-110)
[2020-05-06] MEDS: INSULIN GLARGINE,HUM.REC.ANLOG 1,000 UNIT/10 ML VIAL SUBCUT SCH (21:01)
[2020-05-06] MEDS: SENNOSIDES/DOCUSATE 8.6-50 MG 1 EACH TABLET PEG SCH (21:02)
[2020-05-06 23:23] LABS: ANION GAP 5 (5-19); BLOOD UREA NITROGEN 49 mg/dL (7-20); CALCIUM 8.5 mg/dL (8.4-10.2); CARBON DIOXIDE 30 mmol/L (22-30); CHLORIDE 121 mmol/L (98-107); GLUCOSE 165 mg/dL (75-110); POTASSIUM 3.9 mmol/L (3.6-5.0)
[2020-05-07] MEDS: INSULIN LISPRO 100 UNIT/ML 3 ML VIAL SUBCUT SCH ×6 (03:53→23:02)
[2020-05-07] MEDS: HYDRALAZINE HCL 50 MG TABLET PEG SCH ×3 (05:48→21:52)
[2020-05-07 05:57] LABS: BLOOD UREA NITROGEN 48 mg/dL (7-20); CALCIUM 8.7 mg/dL (8.4-10.2); CARBON DIOXIDE 31 mmol/L (22-30); CHLORIDE 122 mmol/L (98-107); GLUCOSE 153 mg/dL (75-110)
[2020-05-07 06:02] LABS: ANION GAP 4 (5-19)
--- NOTE | 2020-05-07 08:07 | PDOC CRITICAL CARE PROG REPORT ---
General Date:: 05/07/20 Hospital Day:: 4 Resuscitation Status: Do Not Resuscitate Events in the past 12 to 24 Hours:: Getting more responsive but still not awake. Review of systems relevant to events:: Neurologic. Reason for ICU Addmission:: SVT, AMS - Medications: Medications reviewed and adjusted accordingly: Yes Vasopressors:: None Sedation:: None Physical Exam Vital Signs: Temp Pulse Resp BP Pulse Ox 98.4 F 67 13 139/55 H 100 05/07/20 06:00 05/06/20 19:00 05/07/20 06:00 05/07/20 05:47 05/07/20 05:00 Intake & Output 05/06/20 05/07/20 05/08/20 06:59 06:59 06:59 Intake Total 1190 2666 Output Total 1375 540 Balance -185 2126 Weight 72 kg 76.1 kg Weight/Height Weight 76.1 kg Height 5 ft 6 in General appearance: PRESENT: no acute distress Head exam: PRESENT: atraumatic, normocephalic Eye exam: PRESENT: conjunctiva pink, EOMI, PERRLA. ABSENT: scleral icterus Ear exam: PRESENT: normal external ear exam Mouth exam: PRESENT: moist, tongue midline Respiratory exam: PRESENT: clear to auscultation marija. ABSENT: rales, rhonchi, wheezes Cardiovascular exam: PRESENT: RRR. ABSENT: diastolic murmur, rubs, systolic murmur GI/Abdominal exam: PRESENT: firm, normal bowel sounds, soft. ABSENT: distended, guarding, mass, organolmegaly, rebound, tenderness Rectal exam: PRESENT: deferred Extremities exam: PRESENT: full ROM. ABSENT: calf tenderness, clubbing, pedal edema Musculoskeletal exam: PRESENT: normal inspection Neurological exam: PRESENT: altered, CN II-XII grossly intact, other - Opens eyes to voice. Moves arms. Non-verbal. Skin exam: PRESENT: dry, intact, warm. ABSENT: cyanosis, rash Tubes/Lines: PRESENT: Peg Tube Laboratory/Radiographs Laboratory Results: 05/06/20 02:00 05/07/20 03:55 05/06/20 05/06/20 05/06/20 06:40 09:55 14:29 Sodium 163.0 H 161.3 H 160.1 H Potassium 4.1 4.3 3.8 Chloride 127 H 128 H 124 H Carbon Dioxide 32 H 28 31 H Anion Gap 4 L 5 5 BUN 62 H 60 H 53 H Creatinine 1.03 0.99 1.05 Est GFR ( Amer) > 60 > 60 > 60 Glucose 190 H 183 H 198 H Calcium 9.0 8.8 8.7 05/06/20 05/06/20 05/07/20 18:56 23:00 03:55 Sodium 158.0 H 156.0 H 157.4 H Potassium 4.0 3.9 4.0 Chloride 123 H 121 H 122 H Carbon Dioxide 30 30 31 H Anion Gap 5 5 4 L BUN 52 H 49 H 48 H Creatinine 0.98 1.02 1.04 Est GFR ( Amer) > 60 > 60 > 60 Glucose 183 H 165 H 153 H Calcium 8.7 8.5 8.7 05/03/20 03:12 Blood Blood Culture (PCR) - Final 05/03/20 05/03/20 05/03/20 02:06 02:06 08:00 Creatine Kinase 96 CK-MB (CK-2) 7.18 H Troponin I 0.517 0.420 NT-Pro-B Natriuret Pep 05/03/20 05/03/20 05/04/20 16:07 19:15 05:20 Creatine Kinase CK-MB (CK-2) 10.00 H 8.99 H Troponin I 0.331 0.272 NT-Pro-B Natriuret Pep 4980 H 05/05/20 05/06/20 06:28 02:00 Creatine Kinase CK-MB (CK-2) Troponin I NT-Pro-B Natriuret Pep 4000 H 6250 H Impressions: Head CT 05/03/20 01:59 IMPRESSION: Atrophy and chronic small vessel ischemic changes with old right-sided infarcts and no acute intracranial abnormality. Chest X-Ray 05/06/20 05:00 IMPRESSION: No acute infiltrates All labs, radiographs, diagnostic studies and EKGs were personally reviewed: Yes In addition, reports of radiographic and diagnostic studies were read: Yes Assessment and Plan - Diagnosis (1) Acute hypernatremia Is this a current diagnosis for this admission?: Yes Plan: Improved with a sodium of 157. It is coming down and as such she is beginning to awaken more. (2) Altered mental status Qualifiers: Altered mental status type: delirium Qualified Code(s): R41.0 - Disorientation, unspecified Is this a current diagnosis for this admission?: Yes Plan: Her baseline is altered and the presence of a PEG is testimony to this. (3) Severe dehydration Is this a current diagnosis for this admission?: Yes Plan: Nearly resolved. Continue 1/2 NS (4) Urinary tract infection Qualifiers: Urinary tract infection type: acute cystitis Hematuria presence: without hematuria Qualified Code(s): N30.00 - Acute cystitis without hematuria Is this a current diagnosis for this admission?: Yes Plan: There is no growth at 2 days (5) Dementia Qualifiers: Dementia type: unspecified type Is this a current diagnosis for this admission?: Yes Plan: Again, unsure of baseline. Plan Summary: Still awaiting [facility] bed. Not ready for discharge. Critical Time Critical Time (minutes): 30 Level of Care: IMCU Anticipated discharge: SNF Anticipated DC Timeframe: Other -: 1. The care of a critical patient is a dynamic process. This note is a lead generation representative synopsis but static in nature. The timeframe for treatments given in order is not necessarily the actual time these treatments may have been done. 2. This patient requires critical care secondary to ongoing requirements for therapy not offered or safe outside the critical care environment. Transfer to a lower level of care will result in altered life or limb morbidity and mortality. 3. Multidisciplinary rounds completed. 4. ABCDE bundle addressed.
[2020-05-07] MEDS: CEFEPIME 1 GM/D5W RTU 1 GM/50 ML RTUPB IV SCH ×2 (09:11→21:51)
[2020-05-07] MEDS: DOCUSATE SODIUM 100 MG/10 ML UDC PEG SCH ×2 (09:12→18:26)
[2020-05-07] MEDS: AMLODIPINE BESYLATE 10 MG TABLET PEG SCH (09:12)
[2020-05-07] MEDS: LEVOFLOXACIN 500 MG/D5W RTU 500 MG/100 ML RTUPB IV SCH (09:12)
[2020-05-07] MEDS: FAMOTIDINE 20 MG TABLET PEG SCH ×2 (09:12→18:26)
[2020-05-07] MEDS: CHOLECALCIFEROL (D3) 1,000 UNIT (25 MCG) TABLET PEG SCH (09:12)
[2020-05-07] MEDS: MULTIVITAMIN ORAL LIQUID 60 ML PEG SCH (09:13)
[2020-05-07] MEDS: ASPIRIN 81 MG TABLET, CHEWABLE PEG SCH (09:13)
[2020-05-07] MEDS: APIXABAN 2.5 MG TABLET PEG SCH ×2 (09:13→18:26)
[2020-05-07] MEDS: METOPROLOL TARTRATE 25 MG TABLET GT SCH ×2 (09:14→21:52)
[2020-05-07] MEDS: MEMANTINE HCL 10 MG TABLET PEG SCH ×2 (09:21→18:27)
[2020-05-07] MEDS: POTASSI CL 20 MEQ/1/2NS 1L 20 MEQ/1,000 ML RTUINJ IV PRN ×2 (09:50→23:47)
[2020-05-07] MEDS ORDERED: CITALOPRAM HYDROBROMIDE 5 MG PEG SCH (10:00)
[2020-05-07] MEDS: SENNOSIDES/DOCUSATE 8.6-50 MG 1 EACH TABLET PEG SCH (18:26)
[2020-05-07] MEDS: ATORVASTATIN CALCIUM 40 MG TABLET PEG SCH (18:26)
[2020-05-07] MEDS: INSULIN GLARGINE,HUM.REC.ANLOG 1,000 UNIT/10 ML VIAL SUBCUT SCH (21:52)
[2020-05-08] MEDS: INSULIN LISPRO 100 UNIT/ML 3 ML VIAL SUBCUT SCH ×5 (03:43→21:35)
[2020-05-08 04:59] LABS: BLOOD UREA NITROGEN 40 mg/dL (7-20); CALCIUM 8.3 mg/dL (8.4-10.2); CHLORIDE 120 mmol/L (98-107); GLUCOSE 198 mg/dL (75-110); POTASSIUM 4.4 mmol/L (3.6-5.0)
[2020-05-08 05:02] LABS: HEMOGLOBIN 9.5 g/dL (12.0-15.5); MEAN CORPUSCULAR HEMOGLOBIN 29.1 pg (27.0-33.4); MEAN CORPUSCULAR HGB CONC 32.9 g/dL (32.0-36.0); MEAN CORPUSCULAR VOLUME 89 fl (80-97); RED BLOOD COUNT 3.28 10^6/uL (3.72-5.28); RED CELL DISTRIBUTION WIDTH 17.2 % (11.5-14.0); WHITE BLOOD COUNT 9.3 10^3/uL (4.0-10.5)
[2020-05-08 05:04] LABS: CARBON DIOXIDE 25 mmol/L (22-30)
[2020-05-08 05:05] LABS: ANION GAP 3 (5-19)
[2020-05-08] MEDS: HYDRALAZINE HCL 50 MG TABLET PEG SCH ×3 (05:22→21:35)
[2020-05-08 06:28] LABS: PLATELET COUNT 86 10^3/uL (150-450)
[2020-05-08 06:31] LABS: ABSOLUTE LYMPHOCYTES# (MANUAL) 1.4 10^3/uL (0.5-4.7); ABSOLUTE MONOCYTES # (MANUAL) 0.3 10^3/uL (0.1-1.4); BASOPHILS % (MANUAL) 0 % (0-2); EOSINOPHILS % (MANUAL) 3 % (0-6); LYMPHOCYTES % (MANUAL) 15 % (13-45); MONOCYTES % (MANUAL) 3 % (3-13); SEGMENTED NEUTROPHILS % (MAN) 79 % (42-78); TOTAL CELLS COUNTED 100
[2020-05-08 06:32] LABS: ANISOCYTOSIS 1+; PLATELET COMMENT DECREASED; POLYCHROMASIA SLIGHT
[2020-05-08] MEDS: CHOLECALCIFEROL (D3) 1,000 UNIT (25 MCG) TABLET PEG SCH (11:08)
[2020-05-08] MEDS: ASPIRIN 81 MG TABLET, CHEWABLE PEG SCH (11:08)
[2020-05-08] MEDS: DOCUSATE SODIUM 100 MG/10 ML UDC PEG SCH (11:08)
[2020-05-08] MEDS: METOPROLOL TARTRATE 25 MG TABLET GT SCH ×2 (11:09→21:35)
[2020-05-08] MEDS: APIXABAN 2.5 MG TABLET PEG SCH ×2 (11:09→17:15)
[2020-05-08] MEDS: FAMOTIDINE 20 MG TABLET PEG SCH ×2 (11:09→17:15)
[2020-05-08] MEDS: AMLODIPINE BESYLATE 10 MG TABLET PEG SCH (11:09)
[2020-05-08] MEDS: MULTIVITAMIN ORAL LIQUID 60 ML PEG SCH (11:10)
[2020-05-08] MEDS: CEFEPIME 1 GM/D5W RTU 1 GM/50 ML RTUPB IV SCH ×2 (11:10→21:36)
[2020-05-08] MEDS: MEMANTINE HCL 10 MG TABLET PEG SCH ×2 (11:11→17:15)
--- NOTE | 2020-05-08 12:34 | PDOC CRITICAL CARE PROG REPORT ---
General Date:: 05/08/20 ICU Day:: 5 Hospital Day:: 5 Resuscitation Status: Do Not Resuscitate Events in the past 12 to 24 Hours:: 05/08/20: Today is my first encounter with this patient. As per report, her mental status remains unchanged despite a relative improvement in her sodium level. No acute events over the past 24 hours. Levaquin has been discontinued and she will remain on cefepime for suspected UTI. She is relatively hyperkalemic and KCl has therefore been removed from her maintenance fluids. Plan will be to speak with her family regarding her baseline mental status and goals of care. Review of systems relevant to events:: ICU day: 5 Neuro: No significant mental status changes over the past 24 hours. Patient is responsive in that she at times mimics words but is not purposeful. She has been on no sedation. Her sodium level has improved from 161 on 05/06/2020 and is now 148. I have changed her half-normal saline to NS with increased free water flushes via PEG. Pulmonary: Patient is breathing comfortably. She remains on room air with an SPO2 of 100%. Breath sounds are clear to auscultation Continue to monitor. With poor mental status, patient is at risk of chronic aspiration and atelectasis. CXR on 05/06/2020 with no evidence of pneumonia. Cardiovascular: Vital signs remained stable. Patient remains on metoprolol, hydralazine and Norvasc. Plan: Continue above medications. Heme: H/H within normal limits. Platelets remain low. No significant change DVT prophylaxis: Continue aspirin 81 mg daily and Eliquis 2.5 mg p.o. twice daily. Renal: BUN/CR continue to improve with hydration. Continue normal saline at 75 mL an hour. An additional 30 mL every 4 hours of free water via PEG was added. Gastrointestinal: Abdomen remains soft, nontender. No bowel movement recorded thus far. Patient is on senna and Colace. We will add Dulcolax today. GI prophylaxis: Continue Pepcid, senna/Colace. Diet: Tube Feeds at 40ml/hr. : Outside studies suggested UTI. We will continue cefepime for now. Good urine output. ID: As above, will continue cefepime. We have discontinued Levaquin. Barriers to discharge from ICU: Unable to reach patient's daughter. I have reached out to [facility] from which she was transferred. As per their report, patient's baseline mental status. As patient has approached her baseline mental status, and there are no further critical care needs, patient can be transferred to the medical service. Reason for ICU Addmission:: SVT, AMS - Medications: Medications reviewed and adjusted accordingly: Yes - Please see review of systems. Physical Exam Vital Signs: Temp Pulse Resp BP Pulse Ox 99.3 F 75 24 H 138/58 H 100 05/08/20 06:00 05/07/20 19:00 05/08/20 06:00 05/08/20 05:49 05/08/20 06:00 Intake & Output 05/07/20 05/08/20 05/09/20 06:59 06:59 06:59 Intake Total 2666 3608 Output Total 540 825 Balance 2126 2783 Weight 76.1 kg 77.6 kg Weight/Height Weight 77.6 kg Height 5 ft 6 in General appearance: PRESENT: no acute distress, well-developed, well-nourished Head exam: PRESENT: atraumatic Eye exam: PRESENT: EOMI, PERRLA Ear exam: PRESENT: normal external ear exam. ABSENT: bleeding Mouth exam: PRESENT: dry mucosa Neck exam: ABSENT: carotid bruit, JVD, lymphadenopathy, thyromegaly, tracheal deviation Respiratory exam: PRESENT: clear to auscultation marija. ABSENT: accessory muscle use, chest wall tenderness, rhonchi, wheezes Cardiovascular exam: PRESENT: irregular rhythm, RRR, +S1, +S2. ABSENT: diastolic murmur, systolic murmur Pulses: PRESENT: normal carotid pulses, normal radial pulses, +1 pedal pulses bilateral Vascular exam: PRESENT: normal capillary refill GI/Abdominal exam: PRESENT: normal bowel sounds, soft. ABSENT: tenderness Extremities exam: PRESENT: pedal edema, +1 edema Musculoskeletal exam: PRESENT: normal inspection. ABSENT: tenderness Neurological exam: PRESENT: awake, CN II-XII grossly intact, other - Unable to interact appropriately. Psychiatric exam: PRESENT: flat affect, other - No purposeful interaction. Skin exam: PRESENT: normal color. ABSENT: abrasion, rash, skin tears Tubes/Lines: PRESENT: Peg Tube Laboratory/Radiographs Laboratory Results: 05/08/20 04:22 05/08/20 04:22 11/11/20 11/11/20 04:22 04:22 WBC 9.3 RBC 3.28 L Hgb 9.5 L Hct 29.0 L MCV 89 MCH 29.1 MCHC 32.9 RDW 17.2 H Plt Count 86 L Seg Neutrophils % Not Reportable Sodium 148.2 H Potassium 4.4 Chloride 120 H Carbon Dioxide 25 Anion Gap 3 L BUN 40 H Creatinine 0.95 Est GFR ( Amer) > 60 Glucose 198 H Calcium 8.3 L 05/03/20 02:06 Blood Blood Culture - Final NO GROWTH IN 5 DAYS 05/03/20 03:12 Blood Blood Culture (PCR) - Final 05/03/20 03:12 Blood Blood Culture - Final Streptococcus Mitis/Oralis Corynebacterium Species 05/03/20 05/03/20 05/03/20 02:06 02:06 08:00 Creatine Kinase 96 CK-MB (CK-2) 7.18 H Troponin I 0.517 0.420 NT-Pro-B Natriuret Pep 05/03/20 05/03/20 05/04/20 16:07 19:15 05:20 Creatine Kinase CK-MB (CK-2) 10.00 H 8.99 H Troponin I 0.331 0.272 NT-Pro-B Natriuret Pep 4980 H 05/05/20 05/06/20 06:28 02:00 Creatine Kinase CK-MB (CK-2) Troponin I NT-Pro-B Natriuret Pep 4000 H 6250 H Impressions: Head CT 05/03/20 01:59 IMPRESSION: Atrophy and chronic small vessel ischemic changes with old right-sided infarcts and no acute intracranial abnormality. Chest X-Ray 05/06/20 05:00 IMPRESSION: No acute infiltrates All labs, radiographs, diagnostic studies and EKGs were personally reviewed: Yes Assessment and Plan - Diagnosis (1) Acute hypernatremia Is this a current diagnosis for this admission?: Yes Plan: Please see systems review for complete evaluation. Severe hyponatremia has been improving steadily. We have changed her half- normal saline to normal saline. Free water flushes added for a total of 60 mL every 4 hours. (2) Acute renal failure superimposed on stage 3 chronic kidney disease Qualifiers: Acute renal failure type: unspecified Chronic kidney disease stage 3 subtype: stage 3a (GFR 45-59) Qualified Code(s): N17.9 - Acute kidney failure, unspecified; N18.31 - Chronic kidney disease, stage 3a Is this a current diagnosis for this admission?: Yes Plan: BUN/CR returning to baseline. Continue hydration. (3) Altered mental status Qualifiers: Altered mental status type: transient alteration of awareness Qualified Code(s): R40.4 - Transient alteration of awareness Is this a current diagnosis for this admission?: Yes Plan: Patient's mental status, as per [facility] report, is to be at baseline. (4) Severe dehydration Is this a current diagnosis for this admission?: Yes Plan: As above, BUN/CR has improved steadily. Continue with free water flushes via PEG tube and normal saline at 75 mL an hour. (5) Urinary tract infection Qualifiers: Urinary tract infection type: acute cystitis Hematuria presence: without hematuria Qualified Code(s): N30.00 - Acute cystitis without hematuria Is this a current diagnosis for this admission?: Yes Plan: Continue course of cefepime 1 g every 12 hours. Levaquin discontinued. Plan Summary: Overall patient's condition has improved. Her sodium is correcting steadily, her mental status is at baseline, she is showing no signs of septic shock. Plan will be to transfer her to medicine service today. Critical Time Critical Time (minutes): 65 Level of Care: ICU Anticipated discharge: Acute Rehab Anticipated DC Timeframe: within 48 hours -: 1. The care of a critical patient is a dynamic process. This note is a senior human resources representative synopsis but static in nature. The timeframe for treatments given in order is not necessarily the actual time these treatments may have been done. 2. This patient requires critical care secondary to ongoing requirements for therapy not offered or safe outside the critical care environment. Transfer to a lower level of care will result in altered life or limb morbidity and mortality. 3. Multidisciplinary rounds completed. 4. ABCDE bundle addressed.
[2020-05-08] MEDS: ATORVASTATIN CALCIUM 40 MG TABLET PEG SCH (17:15)
[2020-05-08] MEDS: SENNOSIDES/DOCUSATE 8.6-50 MG 1 EACH TABLET PEG SCH (17:15)
[2020-05-08] MEDS: INSULIN GLARGINE,HUM.REC.ANLOG 1,000 UNIT/10 ML VIAL SUBCUT SCH (21:36)
--- NOTE | 2020-05-09 00:38 | Progress Note ---
Provider Note Provider Note: ICU downgrade accepted by hospitalist service.
[2020-05-09] MEDS: INSULIN LISPRO 100 UNIT/ML 3 ML VIAL SUBCUT SCH ×5 (01:53→17:46)
[2020-05-09] MEDS: HYDRALAZINE HCL 50 MG TABLET PEG SCH ×2 (07:01→13:35)
[2020-05-09 07:33] LABS: ANION GAP 7 (5-19); BLOOD UREA NITROGEN 37 mg/dL (7-20); CALCIUM 8.8 mg/dL (8.4-10.2); CARBON DIOXIDE 24 mmol/L (22-30); CHLORIDE 114 mmol/L (98-107); GLUCOSE 167 mg/dL (75-110); POTASSIUM 4.1 mmol/L (3.6-5.0)
[2020-05-09] MEDS: AMLODIPINE BESYLATE 10 MG TABLET PEG SCH (10:39)
[2020-05-09] MEDS: METOPROLOL TARTRATE 25 MG TABLET GT SCH (10:39)
[2020-05-09] MEDS: FAMOTIDINE 20 MG TABLET PEG SCH ×2 (10:39→17:35)
[2020-05-09] MEDS: CEFEPIME 1 GM/D5W RTU 1 GM/50 ML RTUPB IV SCH (10:40)
[2020-05-09] MEDS: APIXABAN 2.5 MG TABLET PEG SCH ×2 (10:40→17:35)
[2020-05-09] MEDS: ASPIRIN 81 MG TABLET, CHEWABLE PEG SCH (10:40)
[2020-05-09] MEDS: CHOLECALCIFEROL (D3) 1,000 UNIT (25 MCG) TABLET PEG SCH (10:40)
[2020-05-09] MEDS: MEMANTINE HCL 10 MG TABLET PEG SCH ×2 (10:40→17:35)
[2020-05-09] MEDS: MULTIVITAMIN ORAL LIQUID 60 ML PEG SCH (10:53)
--- NOTE | 2020-05-09 11:47 | PDOC PROGRESS REPORT ---
Subjective Date:: 05/09/20 Subjective:: Francesca Briggs is 84 years old femail with past medical history of CVA with severe dementia and aphasia, dysphagia status post PEG tube placement, hypertension, EtOH abuse, CKD, who is a resident of [facility], who presented to ED on 05/03/2020, diagnosed with UTI, sepsis, NSTEMI, severe hypernatremia, KAYCEE on CKD,, SVT, altered mental initially admitted in ICU, was started on Cardizem drip, empiric broad-spectrum IV antibiotics. Blood culture came back positive for Streptococcus mitis, Corynebacterium species, sodium was gradually corrected with a goal of 8 to 12 mEq/day, sodium 144.7 on 05/09/2020. On 05/09/2020 patient was transferred to floor. 05/09/2020. No acute events overnight. Saw patient this morning, unfortunately patient is severely demented and has aphasia, does not communicate much except mumbling, follows minimal commands, is awake and alert, does not appear to be in any acute distress. Reason For Visit: AMS, PSVT, DEHYDRATION Physical Exam Vital Signs: Temp Pulse Resp BP Pulse Ox 99.0 F 84 20 158/77 H 93 05/09/20 08:23 05/09/20 08:23 05/09/20 08:23 05/09/20 08:23 05/09/20 08:23 Intake & Output 05/08/20 05/09/20 05/10/20 06:59 06:59 06:59 Intake Total 3608 913 Output Total 825 675 Balance 2783 238 Weight 77.6 kg 77.6 kg General appearance: PRESENT: no acute distress, well-developed, well-nourished Head exam: PRESENT: atraumatic, normocephalic Respiratory exam: PRESENT: clear to auscultation marija. ABSENT: rales, rhonchi, wheezes Cardiovascular exam: PRESENT: RRR. ABSENT: diastolic murmur, rubs, systolic murmur GI/Abdominal exam: PRESENT: normal bowel sounds, soft, other - PEG tube in place, patent.. ABSENT: distended, guarding, mass, organolmegaly, rebound, tenderness Neurological exam: PRESENT: alert, awake, CN II-XII grossly intact, other - Quadriparesis with neck rotated to the right side, sticks out her tongue on verbal stimuli, makes incoherent voices when asked for her name.. ABSENT: motor sensory deficit Results Laboratory Results: 05/08/20 04:22 05/09/20 06:10 05/09/20 06:10 Sodium 144.7 Potassium 4.1 Chloride 114 H Carbon Dioxide 24 Anion Gap 7 BUN 37 H Creatinine 0.93 Est GFR ( Amer) > 60 Glucose 167 H Calcium 8.8 05/03/20 05/03/20 05/03/20 02:06 02:06 08:00 Creatine Kinase 96 CK-MB (CK-2) 7.18 H Troponin I 0.517 0.420 NT-Pro-B Natriuret Pep 05/03/20 05/03/20 05/04/20 16:07 19:15 05:20 Creatine Kinase CK-MB (CK-2) 10.00 H 8.99 H Troponin I 0.331 0.272 NT-Pro-B Natriuret Pep 4980 H 05/05/20 05/06/20 06:28 02:00 Creatine Kinase CK-MB (CK-2) Troponin I NT-Pro-B Natriuret Pep 4000 H 6250 H Impressions: Head CT 05/03/20 01:59 IMPRESSION: Atrophy and chronic small vessel ischemic changes with old right-sided infarcts and no acute intracranial abnormality. Chest X-Ray 05/06/20 05:00 IMPRESSION: No acute infiltrates Assessment and Plan - Diagnosis (1) Acute hypernatremia Is this a current diagnosis for this admission?: Yes Plan: Likely due to severe dehydration. Patient is noncommunicative, nonverbal, bedridden due to dementia and multiple CVAs. Dependent on PEG tube feeds. Presented with severe hypernatremia serum sodium 169.8 on admission. Was initially transitioned to ICU, serum sodium modestly corrected and currently is at 140.7. Since patient is on PEG tube feeding it is absolutely necessary for her to receive free water boluses throughout the day to avoid hypernatremia. Currently she is on nephro 1.8, continuous infusion at a rate of 20. Patient received 400 cc free water boluses every 6 hours and her sodium should should be checked routinely to avoid severe hypernatremia. Patient is to be followed up closely by dietitian for adjustment of her feeds and water balance. (2) Acute metabolic encephalopathy Is this a current diagnosis for this admission?: Yes Plan: Most likely acute metabolic encephalopathy. Seems like she is back at her baseline. 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 Currently patient is awake and alert unfortunately nonverbal follows minimal commands. As per family and [facility] this is her baseline. (3) Acute renal failure superimposed on stage 3 chronic kidney disease Qualifiers: Acute renal failure type: unspecified Chronic kidney disease stage 3 subtype: stage 3a (GFR 45-59) Qualified Code(s): N17.9 - Acute kidney failure, unspecified; N18.31 - Chronic kidney disease, stage 3a Is this a current diagnosis for this admission?: Yes Plan: Prerenal. Mostly due to severe dehydration. Presented with creatinine of 2.35. Currently BUN/creatinine WNL. Monitor volume status very closely, avoid nephrotoxic meds. Outpatient PCP and nephrology follow-up. (4) Severe dehydration Is this a current diagnosis for this admission?: Yes Plan: Plan as per #1. (5) Urinary tract infection Qualifiers: Urinary tract infection type: acute cystitis Hematuria presence: without hematuria Qualified Code(s): N30.00 - Acute cystitis without hematuria Is this a current diagnosis for this admission?: Yes Plan: Urine culture negative. UA positive on admission. Likely due to gram-negative rods including E. coli. Completed a complete course of broad-spectrum IV antibiotics. Currently afebrile. WBC WNL. (6) Dementia Qualifiers: Dementia type: unspecified type Is this a current diagnosis for this admission?: Yes Plan: Supportive measures. Continue home meds. (7) Dysphagia Qualifiers: Dysphagia type: oropharyngeal phase Qualified Code(s): R13.12 - Dysphagia, oropharyngeal phase Is this a current diagnosis for this admission?: Yes Plan: PEG tube in place. Continue PEG tube feeds and care. (8) History of CVA (cerebrovascular accident) Is this a current diagnosis for this admission?: Yes Plan: Severe aphasia with quadriparesis. Continue supportive measures. Frequent repositioning, decubitus ulcer precautions. - Time Time Spent with patient: 25-34 minutes Anticipated Discharge Disposition: Alf Facility Anticipated Discharge Timeframe: when bed available
[2020-05-09] MEDS: NORMAL SALINE 1000 ML 1,000 ML IV PRN (13:35)
[2020-05-09] MEDS: ATORVASTATIN CALCIUM 40 MG TABLET PEG SCH (17:35)
[2020-05-09] MEDS: SENNOSIDES/DOCUSATE 8.6-50 MG 1 EACH TABLET PEG SCH (17:35)
[2020-05-10] MEDS: METOPROLOL TARTRATE 25 MG TABLET GT SCH ×2 (00:50→09:07)
[2020-05-10] MEDS: HYDRALAZINE HCL 50 MG TABLET PEG SCH ×3 (00:50→13:21)
[2020-05-10] MEDS: INSULIN GLARGINE,HUM.REC.ANLOG 1,000 UNIT/10 ML VIAL SUBCUT SCH (00:51)
[2020-05-10] MEDS: INSULIN LISPRO 100 UNIT/ML 3 ML VIAL SUBCUT SCH ×4 (00:52→12:46)
[2020-05-10] MEDS: CEFEPIME 1 GM/D5W RTU 1 GM/50 ML RTUPB IV SCH ×2 (00:52→09:06)
[2020-05-10] MEDS: NORMAL SALINE 1000 ML 1,000 ML IV PRN (01:12)
[2020-05-10] MEDS: FAMOTIDINE 20 MG TABLET PEG SCH (09:06)
[2020-05-10] MEDS: APIXABAN 2.5 MG TABLET PEG SCH (09:06)
[2020-05-10] MEDS: ASPIRIN 81 MG TABLET, CHEWABLE PEG SCH (09:06)
[2020-05-10] MEDS: CHOLECALCIFEROL (D3) 1,000 UNIT (25 MCG) TABLET PEG SCH (09:07)
[2020-05-10] MEDS: MEMANTINE HCL 10 MG TABLET PEG SCH (09:07)
[2020-05-10] MEDS: AMLODIPINE BESYLATE 10 MG TABLET PEG SCH (09:10)
--- NOTE | 2020-05-10 09:55 | CDI QUERY ---
CDI Query CDI Review: Dear Provider, Please further specify and document in progress notes and D/C summary, "altered mental status". ACUTE METABOLIC ENCEPHALOPATHY? ACUTE TOXIC ENCEPHALOPATHY? ACUTE CONFUSIONAL STATE? OTHER? Clinical: AMS DKA LYTE IMBALANCE KAYCEE Emelina, Eunice Valencia, CDI [phone]
[2020-05-10] MEDS: MULTIVITAMIN ORAL LIQUID 60 ML PEG SCH (11:58)
[2020-05-10 12:10] LABS: BLOOD UREA NITROGEN 32 mg/dL (7-20); CALCIUM 8.4 mg/dL (8.4-10.2); CARBON DIOXIDE 25 mmol/L (22-30); CHLORIDE 112 mmol/L (98-107); GLUCOSE 164 mg/dL (75-110); POTASSIUM 3.7 mmol/L (3.6-5.0)
[2020-05-10 12:15] LABS: ANION GAP 4 (5-19)
--- NOTE | 2020-05-10 12:21 | PDOC TRANSFER SUMMARY ---
Impression - Admit/DC Date/PCP Admission Date/Primary Care Provider: 05/03/20 05:42 BRITTON HERNANDEZ MD Discharge Date: 05/10/20 - Discharge Diagnosis (1) Acute metabolic encephalopathy Is this a current diagnosis for this admission?: Yes (2) Acute hypernatremia Is this a current diagnosis for this admission?: Yes (3) Acute renal failure superimposed on stage 3 chronic kidney disease Is this a current diagnosis for this admission?: Yes (4) Severe dehydration Is this a current diagnosis for this admission?: Yes (5) Urinary tract infection Is this a current diagnosis for this admission?: Yes (6) Dementia Is this a current diagnosis for this admission?: Yes (7) Dysphagia Is this a current diagnosis for this admission?: Yes (8) History of CVA (cerebrovascular accident) Is this a current diagnosis for this admission?: Yes - Additional Information Resuscitation Status: Do Not Resuscitate Referrals: BRITTON HERNANDEZ MD [Primary Care Provider] - Follow up as needed Home Medications: Albuterol Sulfate [Proair HFA Inhalation Aerosol 8.5 gm MDI] 2 puff IH Q4HP PRN 05/03/20 Allopurinol [Zyloprim 100 mg Tablet] 100 mg PEG QPM 05/03/20 Amino Acids/Protein Hydrolys [Pro-Stat Awc Liquid Packet] 2 pkt PEG DAILY PRN 05/03/20 Amlodipine Besylate [Norvasc 10 mg Tablet] 10 mg PEG DAILY 05/03/20 Apixaban [Eliquis 2.5 mg Tablet] 2.5 mg PEG BID 05/03/20 Aspirin [Aspirin 81 mg Chewable Tablet] 81 mg PEG DAILY 05/03/20 Atorvastatin Calcium [Lipitor 40 mg Tablet] 40 mg PEG QPM 05/03/20 Cholecalciferol (Vitamin D3) [Vitamin D3 1000 Unit Tablet] 2,000 unit PEG DAILY 05/03/20 Citalopram Hydrobromide [Citalopram HBr] 5 mg PEG DAILY 05/03/20 Docusate Sodium [Colace Udc 100 mg/10 ml Oral Soln] 100 mg PEG BID 05/03/20 Famotidine [Pepcid 20 mg Tablet] 20 mg PEG BID 05/03/20 Hydralazine HCl [Apresoline 50 mg Tablet] 100 mg PEG Q8 05/03/20 Insulin Lispro [Humalog Insulin (Lispro) 100 unit/mL] 0 unit SUBCUT .SLD SCALE 05/03/20 Memantine HCl [Namenda 10 mg Tablet] 10 mg PEG BID 05/03/20 Multivitamin with Minerals [One Daily Plus Minerals] 1 each PEG QPM 05/03/20 Sennosides [Senna] 17.2 mg PEG QPM 05/03/20 Insulin Glargine,Hum.rec.anlog [Lantus Insulin 100 Unit/1 ml 10 ml] 10 unit SUBCUT QHS unit 05/10/20 History of Present Illiness History of Present Illness: LLOYD SOL is a 84 year old female with past medical history of CVA with severe dementia and aphasia, dysphagia status post PEG tube placement, hypertension, EtOH abuse, CKD, who is a resident of [facility], who presented to ED on 05/03/2020, diagnosed with UTI, sepsis, NSTEMI, severe hypernatremia, KAYCEE on CKD,, SVT, altered mental initially admitted in ICU, was started on Cardizem drip, empiric broad-spectrum IV antibiotics. Blood culture came back positive for Streptococcus mitis, Corynebacterium species, sodium was gradually corrected with a goal of 8 to 12 mEq/day, sodium 144.7 on 05/09/2020. On 05/09/2020 patient was transferred to floor. Hospital Course Hospital Course: (1) Acute hypernatremia Likely due to severe dehydration. Patient is noncommunicative, nonverbal, bedridden due to dementia and multiple CVAs. Dependent on PEG tube feeds. Presented with severe hypernatremia serum sodium 169.8 on admission. Was initially transitioned to ICU, serum sodium modestly corrected and currently is at 140.7. Since patient is on PEG tube feeding it is absolutely necessary for her to receive free water boluses throughout the day to avoid hypernatremia. Currently she is on nephro 1.8, continuous infusion at a rate of 20. Patient received 400 cc free water boluses every 6 hours and her sodium should should be checked routinely to avoid severe hypernatremia. Patient is to be followed up closely by dietitian for adjustment of her feeds and water balance. (2) Acute renal failure superimposed on stage 3 chronic kidney disease Prerenal. Mostly due to severe dehydration. Presented with creatinine of 2.35. Currently BUN/creatinine WNL. Monitor volume status very closely, avoid nephrotoxic meds. Outpatient PCP and nephrology follow-up. (3) Acute metabolic encephalopathy. Most likely acute metabolic encephalopathy. Seems like she is back at her baseline. 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 Currently patient is awake and alert unfortunately nonverbal follows minimal commands. As per family and custodial this is her baseline. (4) Severe dehydration Plan as per #1. (5) Urinary tract infection Urine culture negative. UA positive on admission. Likely due to gram-negative rods including E. coli. Completed a complete course of broad-spectrum IV antibiotics. Currently afebrile. WBC WNL. (7) Dysphagia PEG tube in place. Continue PEG tube feeds and care. (8) History of CVA (cerebrovascular accident) Severe aphasia with quadriparesis. Continue supportive measures. Frequent repositioning, decubitus ulcer precautions. Physical Exam Vital Signs: Temp Pulse Resp BP Pulse Ox 98.4 F 79 14 136/44 H 95 05/10/20 10:00 05/10/20 07:53 05/10/20 07:53 05/10/20 07:53 05/10/20 07:53 Intake & Output 05/09/20 05/10/20 05/11/20 06:59 06:59 06:59 Intake Total 913 1781 Output Total 675 625 Balance 238 1156 Weight 77.6 kg 80 kg General appearance: PRESENT: no acute distress, obese, well-developed, well- nourished Head exam: PRESENT: atraumatic, normocephalic Respiratory exam: PRESENT: clear to auscultation marija. ABSENT: rales, rhonchi, wheezes Cardiovascular exam: PRESENT: RRR. ABSENT: diastolic murmur, rubs, systolic murmur GI/Abdominal exam: PRESENT: normal bowel sounds, soft, other - PEG tube in place. ABSENT: distended, guarding, mass, organolmegaly, rebound, tenderness Neurological exam: PRESENT: alert, awake, other - Nonverbal. Noncommunicative. Severe aphasia. Quadriparesis. Hard to assess neurologic.. ABSENT: motor sensory deficit Results Laboratory Results: WBC 9.3 10^3/uL (4.0-10.5) 05/08/20 04:22 RBC 3.28 10^6/uL (3.72-5.28) L 05/08/20 04:22 Hgb 9.5 g/dL (12.0-15.5) L 05/08/20 04:22 Hct 29.0 % (36.0-47.0) L 05/08/20 04:22 MCV 89 fl (80-97) 05/08/20 04:22 MCH 29.1 pg (27.0-33.4) 05/08/20 04:22 MCHC 32.9 g/dL (32.0-36.0) 05/08/20 04:22 RDW 17.2 % (11.5-14.0) H 05/08/20 04:22 Plt Count 86 10^3/uL (150-450) L 05/08/20 04:22 Lymph % (Auto) Not Reportable 05/08/20 04:22 Calvert % (Auto) Not Reportable 05/08/20 04:22 Eos % (Auto) Not Reportable 05/08/20 04:22 Baso % (Auto) Not Reportable 05/08/20 04:22 Absolute Neuts (auto) Not Reportable 05/08/20 04:22 Absolute Lymphs (auto) Not Reportable 05/08/20 04:22 Absolute Monos (auto) Not Reportable 05/08/20 04:22 Absolute Eos (auto) Not Reportable 05/08/20 04:22 Absolute Basos (auto) Not Reportable 05/08/20 04:22 Total Counted 100 05/08/20 04:22 Seg Neutrophils % Not Reportable 05/08/20 04:22 Seg Neuts % (Manual) 79 % (42-78) H 05/08/20 04:22 Lymphocytes % (Manual) 15 % (13-45) 05/08/20 04:22 Monocytes % (Manual) 3 % (3-13) 05/08/20 04:22 Eosinophils % (Manual) 3 % (0-6) 05/08/20 04:22 Basophils % (Manual) 0 % (0-2) 05/08/20 04:22 Abs Neuts (Manual) 7.3 10^3/uL (1.7-8.2) 05/08/20 04:22 Abs Lymphs (Manual) 1.4 10^3/uL (0.5-4.7) 05/08/20 04:22 Abs Monocytes (Manual) 0.3 10^3/uL (0.1-1.4) 05/08/20 04:22 Absolute Eos (Manual) 0.3 10^3/uL (0.0-0.6) 05/08/20 04:22 Abs Basophils (Manual) 0.0 10^3/uL (0.0-0.2) 05/08/20 04:22 Platelet Comment DECREASED 05/08/20 04:22 Polychromasia SLIGHT 05/08/20 04:22 Anisocytosis 1+ 05/08/20 04:22 PT 17.2 SEC (11.4-15.4) H 05/03/20 10:35 INR 1.38 05/03/20 10:35 APTT 61.1 SEC (23.5-35.8) H 05/05/20 06:28 VBG pH 7.50 (7.30-7.42) H 05/03/20 02:06 VBG pCO2 45.6 mmHg (35-63) 05/03/20 02:06 VBG HCO3 35.1 mmol/L (20-32) H 05/03/20 02:06 VBG Base Excess 10.5 mmol/L 05/03/20 02:06 Sodium 140.7 mmol/L (137-145) 05/10/20 10:46 Potassium 3.7 mmol/L (3.6-5.0) 05/10/20 10:46 Chloride 112 mmol/L (98-107) H 05/10/20 10:46 Carbon Dioxide 25 mmol/L (22-30) 05/10/20 10:46 Anion Gap 4 (5-19) L 05/10/20 10:46 BUN 32 mg/dL (7-20) H 05/10/20 10:46 Creatinine 0.88 mg/dL (0.52-1.25) 05/10/20 10:46 Est GFR ( Amer) > 60 (>60) 05/10/20 10:46 Est GFR (Non-Af Amer) Cancelled 05/10/20 09:07 Est GFR (MDRD) Non-Af > 60 (>60) 05/10/20 10:46 Glucose 164 mg/dL (75-110) H 05/10/20 10:46 POC Glucose 193 mg/dL (70-110) H 05/10/20 05:52 Serum Osmolality 442 mOsm/kg (275-301) H 05/03/20 02:06 Lactic Acid 2.0 mmol/L (0.7-2.1) 05/03/20 16:07 Calcium 8.4 mg/dL (8.4-10.2) 05/10/20 10:46 Ionized Calcium Michael 1.10 mmol/L (1.14-1.30) L 05/04/20 05:20 Phosphorus 2.5 mg/dL (2.5-4.5) 05/06/20 02:00 Magnesium 2.7 mg/dL (1.6-2.3) H 05/06/20 02:00 Total Bilirubin 0.5 mg/dL (0.2-1.3) 05/06/20 02:00 Direct Bilirubin 0.2 mg/dL (0.0-0.4) 05/06/20 02:00 Neonat Total Bilirubin Not Reportable 05/06/20 02:00 Neonat Direct Bilirubin Not Reportable 05/06/20 02:00 Neonat Indirect Bili Not Reportable 05/06/20 02:00 AST 65 U/L (14-36) H 05/06/20 02:00 ALT 45 U/L (<35) H 05/06/20 02:00 Alkaline Phosphatase 67 U/L (38-126) 05/06/20 02:00 Ammonia 13.4 umol/L (9-33) 05/03/20 03:12 Creatine Kinase 96 U/L (30-135) 05/03/20 02:06 CK-MB (CK-2) 8.99 ng/mL (<4.55) H 05/03/20 19:15 Troponin I 0.272 ng/mL 05/03/20 19:15 NT-Pro-B Natriuret Pep 6250 pg/mL (<450) H 05/06/20 02:00 Total Protein 4.8 g/dL (6.3-8.2) L 05/06/20 02:00 Albumin 2.4 g/dL (3.5-5.0) L 05/06/20 02:00 EGFR Cancelled 05/10/20 09:07 TSH 0.65 uIU/mL (0.47-4.68) 05/03/20 02:06 Urine Color YELLOW 05/03/20 05:36 Urine Appearance CLEAR 05/03/20 05:36 Urine pH 7.0 (5.0-9.0) 05/03/20 05:36 Ur Specific [place] 1.016 05/03/20 05:36 Urine Protein 100 mg/dL (NEGATIVE) H 05/03/20 05:36 Urine Glucose (UA) NEGATIVE mg/dL (NEGATIVE) 05/03/20 05:36 Urine Ketones NEGATIVE mg/dL (NEGATIVE) 05/03/20 05:36 Urine Blood NEGATIVE (NEGATIVE) 05/03/20 05:36 Urine Nitrite NEGATIVE (NEGATIVE) 05/03/20 05:36 Urine Nitrite (Reflex) Cancelled 05/03/20 02:37 Urine Bilirubin NEGATIVE (NEGATIVE) 05/03/20 05:36 Urine Urobilinogen NEGATIVE mg/dL (<2.0) 05/03/20 05:36 Ur Leukocyte Esterase NEGATIVE (NEGATIVE) 05/03/20 05:36 Leukocyte Esterase Rfl Cancelled 05/03/20 02:37 Urine WBC (Auto) 2 /HPF 05/03/20 05:36 Urine RBC (Auto) 1 /HPF 05/03/20 05:36 U Hyaline Cast (Auto) 4 /LPF 05/03/20 02:37 Urine Bacteria (Auto) TRACE /HPF 05/03/20 02:37 Urine WBC (Reflex) Cancelled 05/03/20 02:37 Urine WBC Clumps FEW /HPF 05/03/20 02:37 Squamous Epi Cells Auto <1 /HPF 05/03/20 05:36 U Non-Squamous Epis Auto 3 /HPF 05/03/20 02:37 Urine Mucus (Auto) RARE /LPF 05/03/20 02:37 Urine Osmolality 578 mOsm/kg (300-900) 05/03/20 02:37 Urine Ascorbic Acid 40 (NEGATIVE) H 05/03/20 05:36 COVID-19 Source See comment 05/03/20 04:47 COVID-19 (SARA) Not Detected (Not Detect) 05/03/20 04:47 Influenza A (Rapid) NEGATIVE (NEGATIVE) 05/03/20 03:21 Influenza B (Rapid) NEGATIVE (NEGATIVE) 05/03/20 03:21 05/03/20 05/03/20 05/03/20 02:06 08:00 16:07 CK-MB (CK-2) 7.18 H 10.00 H Troponin I 0.517 0.420 0.331 NT-Pro-B Natriuret Pep 05/03/20 05/04/20 05/05/20 19:15 05:20 06:28 CK-MB (CK-2) 8.99 H Troponin I 0.272 NT-Pro-B Natriuret Pep 4980 H 4000 H 05/06/20 02:00 CK-MB (CK-2) Troponin I NT-Pro-B Natriuret Pep 6250 H Impressions: Chest X-Ray 05/03/20 01:59 IMPRESSION: Bibasilar atelectasis or scarring with otherwise no acute disease. Head CT 05/03/20 01:59 IMPRESSION: Atrophy and chronic small vessel ischemic changes with old right-sided infarcts and no acute intracranial abnormality. Chest X-Ray 05/04/20 05:00 IMPRESSION: Left pleural effusion/reaction. Minimal opacity at the right base. Chest X-Ray 05/05/20 05:00 IMPRESSION: Minimal improvement. Chest X-Ray 05/06/20 05:00 IMPRESSION: No acute infiltrates Stroke Is this a Stroke Patient?: No Acute Heart Failure Is this a Heart Failure Patient?: No
[2020-05-10 13:10] VITALS: BP 138/59
== END 2020-05-10 15:55 | DRG 640 ==
LOC: ER 01:24 → EH 05:42 → ICU 07:20 → 5 05-08 23:13
PROVIDERS: ADMIT Internal Medicine Critical Care Medicine; ATTEND Internal Medicine
DX: E87.0 Hyperosmolality and hypernatremia (principal); G93.41 Metabolic encephalopathy; I21.4 Non-ST elevation (NSTEMI) myocardial infarction; R65.20 Severe sepsis without septic shock; N39.0 Urinary tract infection, site not specified; I47.1 Supraventricular tachycardia; I13.0 Hypertensive heart and chronic kidney disease with heart failure and stage 1 through stage 4 chronic kidney disease, or unspecified chronic kidney disease; N17.9 Acute kidney failure, unspecified; I50.9 Heart failure, unspecified; N18.31 Chronic kidney disease, stage 3a; F03.90 Unspecified dementia, unspecified severity, without behavioral disturbance, psychotic disturbance, mood disturbance, and anxiety; I69.320 Aphasia following cerebral infarction; Z79.899 Other long term (current) drug therapy; E86.0 Dehydration; E87.6 Hypokalemia; R13.10 Dysphagia, unspecified; Z79.01 Long term (current) use of anticoagulants; Z79.82 Long term (current) use of aspirin; Z79.4 Long term (current) use of insulin; Z87.891 Personal history of nicotine dependence; L89.152 Pressure ulcer of sacral region, stage 2; Z66 Do not resuscitate; Z93.1 Gastrostomy status; B96.5 Pseudomonas (aeruginosa) (mallei) (pseudomallei) as the cause of diseases classified elsewhere; Z20.828 Contact with and (suspected) exposure to other viral communicable diseases
CPT/HCPCS: 36415; 70450; 71045; 80048; 80053; 81001; 82140; 82330; 82550; 82553; 82803; 82947; 82962; 83605; 83735; 83880; 83930; 83935; 84100; 84132; 84295; 84443; 84484; 85025; 85610; 85730; 87040; 87077; 87086; 87150; 87186; 87635; 87804; 93005; 93010; 96361; 96365; 96366; 96372; 99291; 99292; C9113; C9803; J0692; J1644; J1650; J1815; J1956; J3370; J3480; J3490; J7030; J7050; J7060; J7120